=== PATIENT | female | born 1960 | race Caucasian/White ===

== ENCOUNTER 2017-12-29 05:52 | Inpatient (IN) ==
[2017-12-29] MEDS ORDERED: 0.9 % Sodium Chloride 1,000 ML ONE ×3 (06:17→07:07)
[2017-12-29] MEDS ORDERED: Aspirin 81 MG TAB.CHEW PO ONE (06:21)
[2017-12-29 06:26] LABS: Basophils % 0.1 %; Hematocrit 47.7 % (35.3-44.9); Hemoglobin 15.8 g/dL (11.5-15.4); Immature Granulocytes % 0.5 % (0-4); Lymphocytes # 0.8 K/mcL (0.6-4.6); Lymphocytes % 4.6 %; Mean Corpuscular HGB Conc 33.1 g/dL (31.6-35.5); Mean Corpuscular Volume 78.5 fL (83.0-100.0); Mean Platelet Volume 8.7 fL (9.4-12.4); Monocytes # 0.7 K/mcL (0.0-1.3); Neutrophils # 16.7 K/mcL (1.6-8.9); Platelet Count 359 K/mcL (140-400); Red Blood Count 6.08 M/mcL (3.82-4.97); Red Cell Distribution Width 18.5 % (11.5-14.5); Segmented Neutrophils % 90.8 %
[2017-12-29] MEDS ORDERED: Ondansetron 4 MG/2 ML VIAL IVP ONE (06:26)
[2017-12-29] MEDS ORDERED: 0.9 % Sodium Chloride 1,000 ML IVC ONE (06:26)
[2017-12-29 06:28] LABS: Bilirubin,Urine Small (Negative); Blood,Urine Large (Negative); Clarity,Urine Cloudy (Clear); Color,Urine Dark Yellow (Yellow); Glucose,Urine (UA) >=1000 mg/dL (Normal); Ketones,Urine 15 mg/dL (Negative); Leukocyte Esterase,Urine Negative (Negative); Nitrite,Urine Negative (Negative); PH,Urine 5.5 pH Units (5.0-8.0); Protein,Urine >=1000 mg/dL (Neg-Trace); Specific Gravity,Urine > 1.030 (1.010-1.025); Urobilinogen,Urine Normal (Normal)
--- NOTE | 2017-12-29 06:29 | Emergency Department Note ---
Disposition Clinical Impression: ST elevation (STEMI) myocardial infarction Qualifiers: Involved coronary artery: unspecified coronary artery Qualified Code(s): I21.3 - ST elevation (STEMI) myocardial infarction of unspecified site Disposition: Admitted As Inpatient Condition: Serious Time of Disposition: 06:43 Abdominal Pain HPI - General Chief Complaint: ED Abdominal Pain Stated Complaint: vomiting,abdominal pain Time Seen by Provider: 12/29/17 06:06 Source: patient Mode of arrival: ambulatory Limitations: no limitations Nursing Notes Reviewed: Yes Vital Signs Reviewed: Yes - History of Present Illness HPI Narrative: Alert and oriented anxious appearing 57-year-old female presents for evaluation of epigastric pain, nausea, and one episode of vomiting. Epigastric pain began yesterday morning. She had one episode of emesis yesterday upon symptom onset but denies any additional episodes. She does complain of being nauseated at the time of her arrival. She complains of intermittent episodes of diaphoresis as well. She states the pain does radiate diffusely throughout the anterior chest and has recently began to radiate into the left shoulder. She denies any associated fever, chills, diarrhea, constipation, urinary symptoms, hematochezia , melena, or hematemesis. She denies any known aggravating or alleviating factors. She denies any new or worsening cough, sputum, or hemoptysis. Pt Subjective Complaint: abdominal pain Onset (ago): day(s) (Since yesterday) Consistency: intermittent Location: epigastric Pain Severity: moderate Pain Scale: 7 Quality: burning Migration to: other (Anterior chest diffusely) Improves with: nothing Worsens with: nothing Associated symptoms: Reports: nausea, vomiting. Denies: diarrhea, fever, chills , constipation, dysuria, hematemesis, hematochezia, melena, hematuria Treatments prior to arrival: none - Related Data Home Medications Medication Instructions Recorded Confirmed Alprazolam [Xanax] 0.5 mg PO TID 06/26/15 12/29/17 Citalopram [CeleXA] 20 mg PO DAILY 06/26/15 12/29/17 Furosemide [Lasix] 40 mg PO DAILY 06/26/15 12/29/17 Insulin LISPRO [HumaLOG] 5 units SQ TIDWM 06/26/15 12/29/17 Omeprazole [PriLOSEC] 40 mg PO DAILY 06/26/15 12/29/17 Tiotropium [Spiriva] 1 puff IH DAILY 06/26/15 12/29/17 Aspirin 81 mg PO DAILY 02/06/16 12/29/17 Oxycodone HCl/Acetaminophen 1 tab PO Q6H PRN 02/06/16 12/29/17 [Percocet 10-325 mg Tablet] Allergies Allergy/AdvReac Type Severity Reaction Status Date / Time Procaine [From Novocain] Allergy Difficulty Verified 12/29/17 06:06 Breathing, SWELLING All systems ED: reviewed and negative except as stated. Constitutional: Denies: fever, chills, weakness, weight change Eyes: Denies: eye pain, eye discharge, vision change ENT ED: Denies: ear pain, throat pain, dental pain, hearing loss, epistaxis, congestion, dysphagia Cardiovascular: Reports: as per HPI, chest pain. Denies: palpitations, dyspnea on exertion, edema, syncope Respiratory: Denies: cough, dyspnea, wheezes, hemoptysis, stridor Gastrointestinal: Reports: as per HPI, abdominal pain, nausea, vomiting. Denies : diarrhea, constipation, hematemesis, melena, hematochezia Genitourinary: Denies: dysuria, frequency, hematuria, discharge Musculoskeletal: Denies: back pain, neck pain, arthralgia, myalgia Integumentary: Denies: rash, abrasion, lesions Neurological: Denies: headache, weakness, numbness, paresthesias, confusion, abnormal gait, vertigo Psychiatric: Denies: anxiety, depression, suicidal thoughts, homicidal thoughts , auditory hallucinations, visual hallucinations Endocrine: Denies: fatigue Hematological/Lymphatic: Denies: easy bleeding, easy bruising Allergic/Immunologic: Denies: facial swelling, urticaria Abdominal Pain PMH - Past Medical History Medical history: Reports: CHF, COPD, diabetes, TIA Female Surgical History: Reports: other Psychiatric history: Reports: anxiety, depression - Social History Smoking status: Current every day smoker Alcohol use: Reports: none Drug use: Reports: marijuana Physical Exam - General General appearance: alert, in no apparent distress - Head Head exam: atraumatic, normocephalic, normal inspection - Eye Eye exam: Present: normal appearance, PERRL, EOMI. Absent: nystagmus - ENT ENT exam: mucous membranes moist - Neck Neck exam: Present: normal inspection, full ROM, trachea midline - Chest Chest inspection: Present: normal inspection, symmetric chest wall rise - Respiratory Respiratory exam: Present: normal lung sounds bilaterally. Absent: respiratory distress, wheezes, stridor, accessory muscle use, prolonged expiratory phase - Cardiovascular Cardiovascular exam: Present: normal rhythm, tachycardia, normal heart sounds - Abdominal Exam Abdominal exam: Present: soft, tenderness, guarding, normal bowel sounds. Absent: distention, rebound, rigidity Abdominal tenderness: Present: epigastrium, severe - Extremities Exam Extremities exam: Present: normal inspection, full ROM. Absent: tenderness, pedal edema - Neurological Exam Neurological exam: Present: alert, oriented X3 - Psychiatric Psychiatric exam: Present: normal affect, normal mood - Skin Skin exam: Present: warm, dry, intact, normal color Course Course Narrative: 06: EKG reviewed by Dr. Benoit. EKG is concerning for an ST elevation OR. Dr. Benoit has requested that I contact the interventional list national business director, Dr. Alexander. I have notified Dr. Alexander at this time, who is currently reviewing the patient's EKG. 0636: Dr. Alexander returned phone call. Per his suggestions, a STEMI alert has been activated. Dr. Benoit has been notified of this request. The patient will be started on a nitroglycerin drip, she has been given aspirin, a heparin bolus will be administered, as well as brilinta. Vital Signs Temperature 97.4 F L 12/29/17 06:07 Pulse Rate 124 12/29/17 06:07 Respiratory Rate 16 12/29/17 06:07 Blood Pressure 155/93 12/29/17 06:07 O2 Sat by Pulse Oximetry 96 12/29/17 06:07 Temperature 97.4 F L 12/29/17 06:07 Pulse Rate 74 12/29/17 07:09 Respiratory Rate 24 12/29/17 07:09 Blood Pressure 148/93 12/29/17 07:09 O2 Sat by Pulse Oximetry 95 12/29/17 07:09 Oxygen Delivery Oxygen Delivery Nasal Cannula Abdominal Pain - Medical Records Medical records reviewed: Yes I reviewed the patient's medical records. - Lab Data Lab results reviewed: Yes I reviewed the patient's lab results. Lab results narrative: Laboratory Last Values WBC 18.3 K/mcL (4.3-11.1) H 12/29/17 06:16 RBC 6.08 M/mcL (3.82-4.97) H 12/29/17 06:16 Hgb 15.8 g/dL (11.5-15.4) H 12/29/17 06:16 Hct 47.7 % (35.3-44.9) H 12/29/17 06:16 MCV 78.5 fL (83.0-100.0) L 12/29/17 06:16 MCH 26.0 pg (28.0-33.3) L 12/29/17 06:16 MCHC 33.1 g/dL (31.6-35.5) 12/29/17 06:16 RDW 18.5 % (11.5-14.5) H 12/29/17 06:16 Plt Count 359 K/mcL (140-400) 12/29/17 06:16 MPV 8.7 fL (9.4-12.4) L 12/29/17 06:16 Immature Gran % 0.5 % (0-4) 12/29/17 06:16 Seg Neutrophils % 90.8 % 12/29/17 06:16 Lymphocytes % 4.6 % 12/29/17 06:16 Monocytes % 4.0 % 12/29/17 06:16 Eosinophils % 0.0 % 12/29/17 06:16 Basophils % 0.1 % 12/29/17 06:16 Neutrophils # 16.7 K/mcL (1.6-8.9) H 12/29/17 06:16 Lymphocytes # 0.8 K/mcL (0.6-4.6) 12/29/17 06:16 Monocytes # 0.7 K/mcL (0.0-1.3) 12/29/17 06:16 Eosinophils # 0.0 K/mcL (0.0-0.6) 12/29/17 06:16 Basophils # 0.0 K/mcL (0.0-0.2) 12/29/17 06:16 PT 11.6 Seconds (9.4-12.1) 12/29/17 06:16 INR 1.1 12/29/17 06:16 APTT 30.6 Seconds (26.0-36.0) 12/29/17 06:16 Sodium 130 mEq/L (136-145) L 12/29/17 06:16 Potassium 4.8 mEq/L (3.5-5.1) 12/29/17 06:16 Chloride 97 mEq/L (98-107) L 12/29/17 06:16 Carbon Dioxide 19 mEq/L (23-29) L 12/29/17 06:16 BUN 34 mg/dL (6-20) H 12/29/17 06:16 Creatinine 1.06 mg/dL (0.60-1.20) 12/29/17 06:16 Est GFR ( Amer) > 60 (> 60) 12/29/17 06:16 Est GFR (Non-Af Amer) 54 (> 60) L 12/29/17 06:16 BUN/Creatinine Ratio 32 (6-26) H 12/29/17 06:16 Glucose 452 mg/dL (70-105) H 12/29/17 06:16 Calculated Osmolality 297 (280-300) 12/29/17 06:16 Lactic Acid 5.3 mmol/L (0.5-2.2) H* 12/29/17 06:16 Calcium 9.4 mg/dL (8.6-10.3) 12/29/17 06:16 Total Bilirubin 0.9 mg/dL (0.3-1.0) 12/29/17 06:16 Direct Bilirubin 0.2 mg/dL (0.0-0.2) 12/29/17 06:16 Indirect Bilirubin 0.7 mg/dL (0.0-1.2) 12/29/17 06:16 AST 30 Units/L (13-39) 12/29/17 06:16 ALT 12 Units/L (7-52) 12/29/17 06:16 Alkaline Phosphatase 87 Units/L (34-104) 12/29/17 06:16 Troponin I 4.47 ng/mL (< 0.04) H* 12/29/17 06:16 Serum Total Protein 7.5 g/dL (6.4-8.9) 12/29/17 06:16 Albumin 4.0 g/dL (3.5-5.7) 12/29/17 06:16 Globulin 3.5 g/dL (2.4-3.5) 12/29/17 06:16 Albumin/Globulin Ratio 1.1 (1.1-2.2) 12/29/17 06:16 Amylase 20 Units/L (29-103) L 12/29/17 06:16 Lipase 5 Units/L (11-82) L 12/29/17 06:16 Urine Color Dark Yellow (Yellow) 12/29/17 06:08 Urine Clarity Cloudy (Clear) A 12/29/17 06:08 Urine pH 5.5 pH Units (5.0-8.0) 12/29/17 06:08 Ur Specific [place] > 1.030 (1.010-1.025) H 12/29/17 06:08 Urine Protein >=1000 mg/dL (Neg-Trace) H 12/29/17 06:08 Urine Glucose (UA) >=1000 mg/dL (Normal) H 12/29/17 06:08 Urine Ketones 15 mg/dL (Negative) H 12/29/17 06:08 Urine Blood Large (Negative) H 12/29/17 06:08 Urine Nitrite Negative (Negative) 12/29/17 06:08 Urine Bilirubin Small (Negative) H 12/29/17 06:08 Urine Urobilinogen Normal mg/dL (Normal) 12/29/17 06:08 Ur Leukocyte Esterase Negative (Negative) 12/29/17 06:08 Urine Microscopic RBC 5-15 per hpf (0-3) H 12/29/17 06:08 Urine Microscopic WBC 3-5 per hpf (0-3) H 12/29/17 06:08 Ur Squamous Epith Cells Many per lpf (None-Few) H 12/29/17 06:08 Amorphous Sediment Moderate (Few) H 12/29/17 06:08 Urine Bacteria Few per hpf (None-Few) 12/29/17 06:08 Hyaline Casts Moderate per lpf (None-Few) H 12/29/17 06:08 Ur Culture Indicated? NO (NO) 12/29/17 06:08 Result diagrams: 12/29/17 06:16 12/29/17 06:16 Lab Results 12/29/17 12/29/17 12/29/17 Range/Units 06:08 06:16 06:16 WBC 18.3 H (4.3-11.1) K/mcL RBC 6.08 H (3.82-4.97) M/mcL Hgb 15.8 H (11.5-15.4) g/dL Hct 47.7 H (35.3-44.9) % MCV 78.5 L (83.0-100.0) fL MCH 26.0 L (28.0-33.3) pg MCHC 33.1 (31.6-35.5) g/dL RDW 18.5 H (11.5-14.5) % Plt Count 359 (140-400) K/mcL MPV 8.7 L (9.4-12.4) fL Immature Gran % 0.5 (0-4) % Seg Neutrophils % 90.8 % Lymphocytes % 4.6 % Monocytes % 4.0 % Eosinophils % 0.0 % Basophils % 0.1 % Neutrophils # 16.7 H (1.6-8.9) K/mcL Lymphocytes # 0.8 (0.6-4.6) K/mcL Monocytes # 0.7 (0.0-1.3) K/mcL Eosinophils # 0.0 (0.0-0.6) K/mcL Basophils # 0.0 (0.0-0.2) K/mcL PT 11.6 (9.4-12.1) Seconds INR 1.1 APTT 30.6 (26.0-36.0) Seconds Sodium (136-145) mEq/L Potassium (3.5-5.1) mEq/L Chloride (98-107) mEq/L Carbon Dioxide (23-29) mEq/L BUN (6-20) mg/dL Creatinine (0.60-1.20) mg/dL Est GFR ( Amer) (> 60) Est GFR (Non-Af Amer) (> 60) BUN/Creatinine Ratio (6-26) Glucose (70-105) mg/dL Calculated Osmolality (280-300) Lactic Acid (0.5-2.2) mmol/L Calcium (8.6-10.3) mg/dL Total Bilirubin (0.3-1.0) mg/dL Direct Bilirubin (0.0-0.2) mg/dL Indirect Bilirubin (0.0-1.2) mg/dL AST (13-39) Units/L ALT (7-52) Units/L Alkaline Phosphatase (34-104) Units/L Troponin I (< 0.04) ng/mL Serum Total Protein (6.4-8.9) g/dL Albumin (3.5-5.7) g/dL Globulin (2.4-3.5) g/dL Albumin/Globulin Ratio (1.1-2.2) Amylase (29-103) Units/L Lipase (11-82) Units/L Urine Color Dark Yellow (Yellow) Urine Clarity Cloudy A (Clear) Urine pH 5.5 (5.0-8.0) pH Units Ur Specific [place] > 1.030 H (1.010-1.025) Urine Protein >=1000 H (Neg-Trace) mg/dL Urine Glucose (UA) >=1000 H (Normal) mg/dL Urine Ketones 15 H (Negative) mg/dL Urine Blood Large H (Negative) Urine Nitrite Negative (Negative) Urine Bilirubin Small H (Negative) Urine Urobilinogen Normal (Normal) mg/dL Ur Leukocyte Esterase Negative (Negative) Urine Microscopic RBC 5-15 H (0-3) per hpf Urine Microscopic WBC 3-5 H (0-3) per hpf Ur Squamous Epith Cells Many H (None-Few) per lpf Amorphous Sediment Moderate H (Few) Urine Bacteria Few (None-Few) per hpf Hyaline Casts Moderate H (None-Few) per lpf Ur Culture Indicated? NO (NO) 12/29/17 12/29/17 Range/Units 06:16 06:16 WBC (4.3-11.1) K/mcL RBC (3.82-4.97) M/mcL Hgb (11.5-15.4) g/dL Hct (35.3-44.9) % MCV (83.0-100.0) fL MCH (28.0-33.3) pg MCHC (31.6-35.5) g/dL RDW (11.5-14.5) % Plt Count (140-400) K/mcL MPV (9.4-12.4) fL Immature Gran % (0-4) % Seg Neutrophils % % Lymphocytes % % Monocytes % % Eosinophils % % Basophils % % Neutrophils # (1.6-8.9) K/mcL Lymphocytes # (0.6-4.6) K/mcL Monocytes # (0.0-1.3) K/mcL Eosinophils # (0.0-0.6) K/mcL Basophils # (0.0-0.2) K/mcL PT (9.4-12.1) Seconds INR APTT (26.0-36.0) Seconds Sodium 130 L (136-145) mEq/L Potassium 4.8 (3.5-5.1) mEq/L Chloride 97 L (98-107) mEq/L Carbon Dioxide 19 L (23-29) mEq/L BUN 34 H (6-20) mg/dL Creatinine 1.06 (0.60-1.20) mg/dL Est GFR ( Amer) > 60 (> 60) Est GFR (Non-Af Amer) 54 L (> 60) BUN/Creatinine Ratio 32 H (6-26) Glucose 452 H (70-105) mg/dL Calculated Osmolality 297 (280-300) Lactic Acid 5.3 H* (0.5-2.2) mmol/L Calcium 9.4 (8.6-10.3) mg/dL Total Bilirubin 0.9 (0.3-1.0) mg/dL Direct Bilirubin 0.2 (0.0-0.2) mg/dL Indirect Bilirubin 0.7 (0.0-1.2) mg/dL AST 30 (13-39) Units/L ALT 12 (7-52) Units/L Alkaline Phosphatase 87 (34-104) Units/L Troponin I 4.47 H* (< 0.04) ng/mL Serum Total Protein 7.5 (6.4-8.9) g/dL Albumin 4.0 (3.5-5.7) g/dL Globulin 3.5 (2.4-3.5) g/dL Albumin/Globulin Ratio 1.1 (1.1-2.2) Amylase 20 L (29-103) Units/L Lipase 5 L (11-82) Units/L Urine Color (Yellow) Urine Clarity (Clear) Urine pH (5.0-8.0) pH Units Ur Specific [place] (1.010-1.025) Urine Protein (Neg-Trace) mg/dL Urine Glucose (UA) (Normal) mg/dL Urine Ketones (Negative) mg/dL Urine Blood (Negative) Urine Nitrite (Negative) Urine Bilirubin (Negative) Urine Urobilinogen (Normal) mg/dL Ur Leukocyte Esterase (Negative) Urine Microscopic RBC (0-3) per hpf Urine Microscopic WBC (0-3) per hpf Ur Squamous Epith Cells (None-Few) per lpf Amorphous Sediment (Few) Urine Bacteria (None-Few) per hpf Hyaline Casts (None-Few) per lpf Ur Culture Indicated? (NO) - Radiology Data Radiology results reviewed: Yes I reviewed the patient's radiology results. Chest X-Ray 12/29/17 06:21 IMPRESSION: No acute findings. D/ / Anish Munoz / Anish Munoz Interpreting Provider: Anish Munoz - EKG Data EKG attestation: Yes I reviewed and interpreted this EKG. EKG results narrative: EKG reviewed by Dr. Benoit as well. EKG shows a sinus tachycardia at a rate of 116 bpm. TN interval 147, QRS duration 110, QT/QTc interval 346/415. No ectopy noted. Slight ST elevation noted in leads V1 and V2. T wave inversions noted in the lateral leads.
[2017-12-29 06:33] LABS: INR 1.1; Prothrombin Time 11.6 Seconds (9.4-12.1)
[2017-12-29] MEDS ORDERED: Nitroglycerin 0.4 MG TAB.SUBL SL PRN (06:35)
[2017-12-29] MEDS ORDERED: *HR* LORazepam 2 MG/ML VIAL IVP ONE (06:35)
[2017-12-29 06:36] LABS: Activated Partial Thrombo Time 30.6 Seconds (26.0-36.0)
[2017-12-29] MEDS ORDERED: *HR* Heparin 5,000 UNIT/ML VIAL IVP PRN ×2 (06:39)
[2017-12-29] MEDS ORDERED: *HR* Heparin 5,000 UNIT/ML VIAL IVP ONE (06:39)
[2017-12-29] MEDS ORDERED: *HR* Ticagrelor 90 MG TABLET PO ONE (06:39)
[2017-12-29] MEDS ORDERED: *HR* Heparin 5,000 UNIT/ML VIAL ONE (06:43)
[2017-12-29] MEDS ORDERED: *HR* Ticagrelor 90 MG TABLET ONE (06:43)
[2017-12-29] MEDS ORDERED: Nitroglycerin 25 MG/250 ML INFUS..BTL IVC SCH (06:45)
[2017-12-29 06:46] LABS: Alanine Aminotransferase 12 Units/L (7-52); Albumin/Globulin Ratio 1.1 (1.1-2.2); Alkaline Phosphatase 87 Units/L (34-104); Amylase 20 Units/L (29-103); Aspartate Amino Transferase 30 Units/L (13-39); BUN/Creatinine Ratio 32 (6-26); Bilirubin,Direct 0.2 mg/dL (0.0-0.2); Bilirubin,Indirect 0.7 mg/dL (0.0-1.2); Bilirubin,Total 0.9 mg/dL (0.3-1.0); Blood Urea Nitrogen 34 mg/dL (6-20); Calcium 9.4 mg/dL (8.6-10.3); Carbon Dioxide 19 mEq/L (23-29); Chloride 97 mEq/L (98-107); Globulin 3.5 g/dL (2.4-3.5); Glucose 452 mg/dL (70-105); Lipase 5 Units/L (11-82); Osmolality,Calculated 297 (280-300); Potassium 4.8 mEq/L (3.5-5.1); Sodium 130 mEq/L (136-145); Total Protein 7.5 g/dL (6.4-8.9); eGFR For African Americans > 60 (> 60); eGFR For Non-African Americans 54 (> 60)
[2017-12-29 06:51] LABS: Amorphous Sediment,Urine Moderate (Few); Hyaline Casts,Urine Moderate per lpf (None-Few); Squamous Epithelial Cell,Urine Many per lpf (None-Few)
[2017-12-29 06:54] LABS: Bacteria,Urine Few per hpf (None-Few)
[2017-12-29 06:54] LABS: Troponin I 4.47 ng/mL (< 0.04)
--- NOTE | 2017-12-29 06:54 | Emergency Department Note ---
Disposition Clinical Impression: ST elevation (STEMI) myocardial infarction Qualifiers: Involved coronary artery: unspecified coronary artery Qualified Code(s): I21.3 - ST elevation (STEMI) myocardial infarction of unspecified site Disposition: Admitted As Inpatient Condition: Serious Referrals: Alex Tapia Jr, MD [Primary Care Provider] - Forms: ED Satisfaction Letter, Work/School Release General Adult HPI - General Chief complaint: ED Abdominal Pain Stated complaint: vomiting,abdominal pain Time Seen by Provider: 12/29/17 06:06 Source: patient Mode of arrival: ambulatory Limitations: no limitations Nursing Notes Reviewed: Yes Vital Signs Reviewed: Yes - History of Present Illness Pain Scale: 7 - Related Data Home Medications Medication Instructions Recorded Confirmed Alprazolam [Xanax] 0.5 mg PO TID 06/26/15 02/06/16 Citalopram [CeleXA] 20 mg PO DAILY 06/26/15 02/06/16 Furosemide [Lasix] 40 mg PO DAILY 06/26/15 02/06/16 Insulin LISPRO [HumaLOG] 5 units SQ TIDWM 06/26/15 02/06/16 Omeprazole [PriLOSEC] 40 mg PO DAILY 06/26/15 02/06/16 Tiotropium [Spiriva] 1 puff IH DAILY 06/26/15 02/06/16 Aspirin 81 mg PO DAILY 02/06/16 02/06/16 Oxycodone HCl/Acetaminophen 1 tab PO Q6H PRN 02/06/16 02/06/16 [Percocet 10-325 mg Tablet] Previous Rx's Medication Instructions Recorded Clopidogrel Bisulfate [Plavix] 75 mg PO DAILY #30 tablet 02/06/16 predniSONE [Prednisone] 40 mg PO DAILY #10 tablet 08/16/16 Allergies Allergy/AdvReac Type Severity Reaction Status Date / Time Procaine [From Novocain] Allergy Difficulty Verified 12/29/17 06:06 Breathing, SWELLING Constitutional: Denies: fever, chills, weakness, weight change Eyes: Denies: eye pain, eye discharge, vision change ENT ED: Denies: ear pain, throat pain, dental pain, hearing loss, epistaxis, congestion, dysphagia Cardiovascular: Reports: as per HPI, chest pain. Denies: palpitations, dyspnea on exertion, edema, syncope Respiratory: Denies: cough, dyspnea, wheezes, hemoptysis, stridor Gastrointestinal: Reports: as per HPI, abdominal pain, nausea, vomiting. Denies : diarrhea, constipation, hematemesis, melena, hematochezia Genitourinary: Denies: dysuria, frequency, hematuria, discharge Musculoskeletal: Denies: back pain, neck pain, arthralgia, myalgia Integumentary: Denies: rash, abrasion, lesions Neurological: Denies: headache, weakness, numbness, paresthesias, confusion, abnormal gait, vertigo Psychiatric: Denies: anxiety, depression, suicidal thoughts, homicidal thoughts , auditory hallucinations, visual hallucinations Endocrine: Denies: fatigue Hematological/Lymphatic: Denies: easy bleeding, easy bruising Allergic/Immunologic: Denies: facial swelling, urticaria Past Medical History - Past Medical History Medical history: Reports: CHF, COPD, diabetes, TIA Surgical history: Reports: other Psychiatric history: Reports: anxiety, depression - Social History Smoking Status: Current every day smoker Smokeless Tobacco Status: No Alcohol use: Reports: none Drug use: Reports: marijuana Physical Exam - General Limitations: no limitations General appearance: alert, in no apparent distress Course Vital Signs Temperature 97.4 F L 12/29/17 06:07 Pulse Rate 124 12/29/17 06:07 Respiratory Rate 16 12/29/17 06:07 Blood Pressure 155/93 12/29/17 06:07 O2 Sat by Pulse Oximetry 96 12/29/17 06:07 Temperature 97.4 F L 12/29/17 06:07 Pulse Rate 115 12/29/17 06:47 Respiratory Rate 26 12/29/17 06:47 Blood Pressure 129/75 12/29/17 06:47 O2 Sat by Pulse Oximetry 95 12/29/17 06:47 Oxygen Delivery Oxygen Delivery Nasal Cannula Medical Decision Making - Lab Data Result diagrams: 12/29/17 06:16 12/29/17 06:16 Lab Results 12/29/17 12/29/17 12/29/17 Range/Units 06:08 06:16 06:16 WBC 18.3 H (4.3-11.1) K/mcL RBC 6.08 H (3.82-4.97) M/mcL Hgb 15.8 H (11.5-15.4) g/dL Hct 47.7 H (35.3-44.9) % MCV 78.5 L (83.0-100.0) fL MCH 26.0 L (28.0-33.3) pg MCHC 33.1 (31.6-35.5) g/dL RDW 18.5 H (11.5-14.5) % Plt Count 359 (140-400) K/mcL MPV 8.7 L (9.4-12.4) fL Immature Gran % 0.5 (0-4) % Seg Neutrophils % 90.8 % Lymphocytes % 4.6 % Monocytes % 4.0 % Eosinophils % 0.0 % Basophils % 0.1 % Neutrophils # 16.7 H (1.6-8.9) K/mcL Lymphocytes # 0.8 (0.6-4.6) K/mcL Monocytes # 0.7 (0.0-1.3) K/mcL Eosinophils # 0.0 (0.0-0.6) K/mcL Basophils # 0.0 (0.0-0.2) K/mcL PT 11.6 (9.4-12.1) Seconds INR 1.1 APTT 30.6 (26.0-36.0) Seconds Sodium (136-145) mEq/L Potassium (3.5-5.1) mEq/L Chloride (98-107) mEq/L Carbon Dioxide (23-29) mEq/L BUN (6-20) mg/dL Creatinine (0.60-1.20) mg/dL Est GFR ( Amer) (> 60) Est GFR (Non-Af Amer) (> 60) BUN/Creatinine Ratio (6-26) Glucose (70-105) mg/dL Calculated Osmolality (280-300) Lactic Acid (0.5-2.2) mmol/L Calcium (8.6-10.3) mg/dL Total Bilirubin (0.3-1.0) mg/dL Direct Bilirubin (0.0-0.2) mg/dL Indirect Bilirubin (0.0-1.2) mg/dL AST (13-39) Units/L ALT (7-52) Units/L Alkaline Phosphatase (34-104) Units/L Serum Total Protein (6.4-8.9) g/dL Albumin (3.5-5.7) g/dL Globulin (2.4-3.5) g/dL Albumin/Globulin Ratio (1.1-2.2) Amylase (29-103) Units/L Lipase (11-82) Units/L Urine Color Dark Yellow (Yellow) Urine Clarity Cloudy A (Clear) Urine pH 5.5 (5.0-8.0) pH Units Ur Specific [place] > 1.030 H (1.010-1.025) Urine Protein >=1000 H (Neg-Trace) mg/dL Urine Glucose (UA) >=1000 H (Normal) mg/dL Urine Ketones 15 H (Negative) mg/dL Urine Blood Large H (Negative) Urine Nitrite Negative (Negative) Urine Bilirubin Small H (Negative) Urine Urobilinogen Normal (Normal) mg/dL Ur Leukocyte Esterase Negative (Negative) 12/29/17 12/29/17 Range/Units 06:16 06:16 WBC (4.3-11.1) K/mcL RBC (3.82-4.97) M/mcL Hgb (11.5-15.4) g/dL Hct (35.3-44.9) % MCV (83.0-100.0) fL MCH (28.0-33.3) pg MCHC (31.6-35.5) g/dL RDW (11.5-14.5) % Plt Count (140-400) K/mcL MPV (9.4-12.4) fL Immature Gran % (0-4) % Seg Neutrophils % % Lymphocytes % % Monocytes % % Eosinophils % % Basophils % % Neutrophils # (1.6-8.9) K/mcL Lymphocytes # (0.6-4.6) K/mcL Monocytes # (0.0-1.3) K/mcL Eosinophils # (0.0-0.6) K/mcL Basophils # (0.0-0.2) K/mcL PT (9.4-12.1) Seconds INR APTT (26.0-36.0) Seconds Sodium 130 L (136-145) mEq/L Potassium 4.8 (3.5-5.1) mEq/L Chloride 97 L (98-107) mEq/L Carbon Dioxide 19 L (23-29) mEq/L BUN 34 H (6-20) mg/dL Creatinine 1.06 (0.60-1.20) mg/dL Est GFR ( Amer) > 60 (> 60) Est GFR (Non-Af Amer) 54 L (> 60) BUN/Creatinine Ratio 32 H (6-26) Glucose 452 H (70-105) mg/dL Calculated Osmolality 297 (280-300) Lactic Acid 5.3 H* (0.5-2.2) mmol/L Calcium 9.4 (8.6-10.3) mg/dL Total Bilirubin 0.9 (0.3-1.0) mg/dL Direct Bilirubin 0.2 (0.0-0.2) mg/dL Indirect Bilirubin 0.7 (0.0-1.2) mg/dL AST 30 (13-39) Units/L ALT 12 (7-52) Units/L Alkaline Phosphatase 87 (34-104) Units/L Serum Total Protein 7.5 (6.4-8.9) g/dL Albumin 4.0 (3.5-5.7) g/dL Globulin 3.5 (2.4-3.5) g/dL Albumin/Globulin Ratio 1.1 (1.1-2.2) Amylase 20 L (29-103) Units/L Lipase 5 L (11-82) Units/L Urine Color (Yellow) Urine Clarity (Clear) Urine pH (5.0-8.0) pH Units Ur Specific [place] (1.010-1.025) Urine Protein (Neg-Trace) mg/dL Urine Glucose (UA) (Normal) mg/dL Urine Ketones (Negative) mg/dL Urine Blood (Negative) Urine Nitrite (Negative) Urine Bilirubin (Negative) Urine Urobilinogen (Normal) mg/dL Ur Leukocyte Esterase (Negative) Critical Care Time Critical Care Time: Yes Total Critical Care Time: 35 Attestation: Critical care performed: Time is exclusive of separately billable procedures. Time includes: direct patient care, patient reassessment, coordination of patient care, interpretation of data (laboratory data, radiology data, and respiratory data), review of patient's medical records, medical consultation and documentation of patient care. Procedures included in critical care time: Procedures excluded from critical care time: Attestation Statement - Attestation Attestation: I, Adria Benoit MD, personally evaluated this patient and discussed their management with the midlevel provicer, PAC/HOT BLASTER. I reviewed the midlevel provider 's note and agree with the documented findings, medical decision making, and plan of care. 57-year-old female presents to the emergency department complaining of epigastric abdominal pain for 24 hours prior to arrival. She states the pain started yesterday morning just after she woke up. Pain radiates up into the chest and is associated with nausea. She had some vomiting initially but none since. She also complains of diaphoresis. Some mild shortness of breath. The pain has been constant for the past 24 hours and seems to be just getting progressively worse. No fever. No melena, hematemesis, or hematochezia. Patient denies any prior cardiac history. The pain does seem to radiate into her shoulders, left greater than right. On examination patient is a well-developed well-nourished female in mild distress. She is very anxious. There is no cyanosis or diaphoresis. She is alert and oriented 3. Chest is nontender to palpation. Breath sounds are clear and equal bilaterally. Heart regular with a mild tachycardia. Abdomen is soft with moderate epigastric tenderness. Bowel sounds normal. EKG shows ST elevations in V1 and V2 consistent with STEMI criteria. She also has new lateral T-wave inversions. EKG was sent to the interventionalist, Dr. Alexander, and he agrees findings are consistent with STEMI and a STEMI alert was called. Labs reviewed. Lactic acid elevated at 5.3. Troponin 4.47. Patient received aspirin, nitroglycerin, Brilinta, and heparin bolus.
[2017-12-29] MEDS ORDERED: Heparin 1,000 UNITS/500 mL 500 ML ONE (07:08)
[2017-12-29] MEDS ORDERED: Nitroglycerin 1,000 MCG/10 ML VIAL IV ONE (07:08)
[2017-12-29] MEDS ORDERED: ISOVUE-370 200 ML INFUS..BTL IV ONE (07:08)
[2017-12-29] MEDS ORDERED: *HR* Heparin 10,000 UNIT/10 ML VIAL ONE (07:08)
[2017-12-29] MEDS ORDERED: *HR* Midazolam HCl 5 MG/5 ML VIAL IVP ONE (07:25)
[2017-12-29] MEDS ORDERED: *HR* FentaNYL (PF) 100 MCG/2 ML VIAL ONE ×2 (07:25→08:34)
--- NOTE | 2017-12-29 08:03 | Procedure Note ---
Date of procedure: 12/29/17 Pre-op diagnosis: STEMI Post-op diagnosis: other Procedure: Left cath From the left groin. Minor plaque and there is dilated LV with EF 20- 25%. Anesthesia: local Surgeon: Marcus Alexander Was there an media center assistant present: No Estimated blood loss (cc): 10 Specimen: none Pathology: none sent Condition: stable Disposition: floor
--- NOTE | 2017-12-29 08:06 | Pre-Sedation Evaluation ---
Pre-sedation evaluation - Pre-sedation checklist Date of procedure: 12/29/17 Procedure: heart cath Recent Vitals: Last Vital Signs Temp 97.4 F L 12/29/17 06:07 Pulse 74 12/29/17 07:09 Resp 24 12/29/17 07:09 BP 148/93 12/29/17 07:09 Pulse Ox 95 12/29/17 07:09 H&P (including ROS) documented in medical record: Yes Previous reaction to sedatives/anesthetics: No Dietary Status: NPO after Midnight Dentition: No loose teeth or bridges, full dentition ASA Classification *see protocol: CLASS III-Severe systemic disease Plan of Care: Pt appropriate candidate for procedure/moderate/conscious sedation , Risks/benefits of procedure/sedation discussed w/ patient/family
[2017-12-29] MEDS ORDERED: *HR* FentaNYL (PF) 100 MCG/2 ML VIAL IVP ONE (08:56)
--- NOTE | 2017-12-29 10:06 | Invasive Diagnostic Lab Proc ---
Name: Shantal Gomez Date of Study: 12/29/2017 Date: 1960 Ht: 59.1in Medical Record#: [id number] Age: 57 Wt: 160.94lb Gender: Female BSA: 1.68 Order #: [id number] BMI: 32.44 Physicians Procedure Physician: Marcus Alexander MD Referring MD: Referring MD: Staff Name Position Time In AviTrae RT (R) Scrub 07:24 AM Jody Mace RN Doctor Of Osteopathy 07:25 AM Daphney Wu RT (R) Monitor 07:25 AM Indications Indication STEMI Procedures Performed Procedure L HRT ARTERY/VENTRICLE ANGIO Pre-Procedure Checklist Informed consent is complete signed and on chart. H&P is on chart. ID band is on and ID verified with patient. Patient NPO for procedure The procedure was described for the patient and questions were answered. ECG is on chart. Plan of Care Patient will tolerate the procedure without complications. Adequate level of comfort will be maintained. Hemodynamics will remain stable Patient will recover from procedure without complications. Respiratory function will be maintained. Cardiac rhythm will remain stable. Patient temperature will be maintained. Patient and/or family have verbalized understanding of the procedure. Patient Education Chief Complaint/Reason for Test: Cardiac Cath Developmental Category: Adult (18-64 years) Developmentally Appropriate for Age: Yes Learning Barriers: None Education Needs: Procedure Education Method: Verbal Information Taught: Cardiac Cath Educational Evaluation: Able to repeat information Intravenous Access Time IV Size Location DC'd Fluid/Drip Rate Units RN 18g 1 09/08" Patent On Arrival 0.9NaCl ml/hr Allergies Procaine Vital Signs Time BP (mmHg) HR (bpm) O2 Sat. RR (bpm) LOC 07:26 AM / % 5 = Fully awake and oriented or at pre-proc level 07:26 AM / % 5 = Fully awake and oriented or at pre-proc level 07:25 AM 128 / 74 115 96 % 07:30 AM 138 / 76 114 97 % 07:35 AM 129 / 59 108 95 % 07:40 AM 117 / 65 105 95 % 07:45 AM 100 / 75 104 93 % 07:50 AM 117 / 95 105 91 % 08:00 AM 112 / 77 105 91 % 20 5 = Fully awake and oriented or at pre-proc level 08:15 AM 118 / 64 106 89 % 20 5 = Fully awake and oriented or at pre-proc level 08:30 AM 124 / 71 107 89 % 20 5 = Fully awake and oriented or at pre-proc level 08:45 AM 134 / 75 112 91 % 20 5 = Fully awake and oriented or at pre-proc level 09:00 AM 141 / 88 114 96 % 22 5 = Fully awake and oriented or at pre-proc level 09:15 AM 152 / 76 114 96 % 20 5 = Fully awake and oriented or at pre-proc level 09:30 AM 141 / 102 115 96 % 20 5 = Fully awake and oriented or at pre-proc level 09:45 AM 141 / 81 112 96 % 20 5 = Fully awake and oriented or at pre-proc level 10:00 AM 144 / 80 111 96 % 20 5 = Fully awake and oriented or at pre-proc level Procedural Medications Time Medication Dose Units Method Given By 07:26 AM Versed 1 mg Intravenous Jody Mace RN 07:26 AM Fentanyl 50 mcg Intravenous Jody Mace RN 07:29 AM Lidocaine 2% 16 ml Subcutaneous Marcus Alexander MD 07:31 AM Versed 1 mg Intravenous Jody Mace RN 07:31 AM Fentanyl 50 mcg Intravenous Jody Mace RN 07:33 AM Lidocaine 2% 10 ml Subcutaneous Marcus Alexander MD 08:49 AM Fentanyl 50 mcg Intravenous Jason Granado RN Kirsten Score Preprocedure Postprocedure Activity 2- Moves 4 extremities sustained head lift Activity 2- Moves 4 extremities sustained head lift Circulation 2- SBP +/= 20 points of pre-anesthetic level Circulation 2- SBP +/= 20 points of pre-anesthetic level Consciousness 2- Awake and alert oriented x 3 Consciousness 2- Awake and alert oriented x 3 O2 Saturation 2- Able to maintain O2 satruation of 92% on room air O2 Saturation 1- Needs O2 inhalation to maintain O2 saturation of 90% Respiratory 2- Able to deep breathe and cough well Respiratory 2- Able to deep breathe and cough well Total Score 10 Total Score 9 Contrast Agent: Isovue Diagnostic Contrast: 125 ml Total Contrast: 125 ml Fluoro Dose: 292 mGy Activated Clotting Time Time Seconds to Clot 07:51 AM 200 09:15 AM 149 Procedure Log Time Note Enter By 07:19 AM Pt arrived to laboratory coordinator 2 at 07:19 [email or web address] 07:24 AM Vitals capture started with the following parameters, Patient=Adult, Interval=5 min, Initial Ygnfsrsv=642 mmHg, Deflation Rate=5 mmHg, Cuff placed on Right Arm 07:24 AM CathStat 07:24 AM Case Start 07:25 AM Trae Cárdenas RT (R) Position: Scrub Time in: 07:24 [email or web address] 07:25 AM Jody Mace RN Position: Doctor Of Osteopathy Time in: 07: [email or web address] 07:25 AM Daphney Wu RT (R) Position: Monitor Time in: 07: [email or web address] 07:25 AM Physician arrived 07:25 [email or web address] 07:25 AM Hair removed from procedure site in holding area using clippers. Bilateral groin prepped with Chloraprep by Trae Cárdenas RT (R), then patient was draped. Skin intact. [email or web address] 07:25 AM Meet and greet completed [email or web address] 07:25 AM Sign in performed according to hospital policy. [email or web address] 07:25 AM Procedure start 07: [email or web address] 07: AM SR=181 bpm, OCJI=222/74 mmhg, SpO2=96.0 % 07: AM Time: 07:26 Patient comfortable and pain free: No [email or web address] 07: AM Time: :LOC: 5 = Fully awake and oriented or at pre-proc level [email or web address] : AM Time: : Versed 1 mg Intravenous Given by Jody Mace RN [email or web address] 07: AM Time: 07: Fentanyl 50 mcg Intravenous Given by Jody Mace RN [email or web address] 07:27 AM Pressure channel 1 zero failed. 07:27 AM Pressure channel 1 zero failed. 07:27 AM Pressure channel 1 zero failed. 07:27 AM Pressure channel 1 zeroed. 07:28 AM Time out performed according to hospital policy [email or web address] 07:28 AM Clinical Presentation: STEMI or equivalent [email or web address] 07:29 AM Time: : 16 ml Lidocaine 2% to right groin Subcutaneous Given by Marcus Alexander MD [email or web address] 07:30 AM MM=731 bpm, CZWW=615/76 mmhg, SpO2=97.0 %, Comment=Sinus Tach 07:30 AM Recorded ECG: VJ=576 Condition=Condition 1 07:31 AM Time: 07: Versed 1 mg Intravenous Given by Jody Mace RN 07:31 AM Time: 07:31 Fentanyl 50 mcg Intravenous Given by Jody Mace RN 07:33 AM Venous access obtained, wire inserted dsp 07:33 AM Time: 07:33 10 ml Lidocaine 2% to left groin Subcutaneous Given by Marcus Alexander MD [email or web address] 07:34 AM Access obtained by percutaneous puncture. 6Fr 10cm Terumo [place] sheath placed in left Femoral artery. [id number] dspell 07:35 AM FR=468 bpm, LOZL=421/59 mmhg, SpO2=95.0 %, Comment=Sinus Tach 07:35 AM 0.035 150cm VSI [place]-Torque wire [id number] dspell 07:35 AM 0.035 145cm [place] 3mmJ wire [id number] dspell 07:36 AM 5Fr FR 4 catheter inserted over the wire DN ell 07:37 AM RCA angiography performed in multiple views. ell 07:37 AM Recorded Pressure: Ao, TZ=793, Condition=Condition 1 (Aorta) Ao 95/72/84 07:37 AM Catheter removed dspell 07:38 AM 6Fr XB3.5 Cordis guide catheter was used to cannulate the PCI vessel successfully. reused? No 07:39 AM LCA angiography performed in multiple views. 07:40 AM NN=875 bpm, WLPV=157/65 mmhg, SpO2=95.0 %, Comment=Sinus Tach 07:40 AM Catheter removed dspell 07:40 AM 5Fr Pigtail catheter inserted over the wire [facility] dspell 07:41 AM Catheter selectively placed in left ventricle dspell 07:41 AM Bolus angiogram of left Ventricle complete: 8 ml/sec for a total of 24 mls dspell 07:41 AM Recorded Pressure: LV, KF=514, Condition=Condition 1 (Left Ventricle) LV 136/11/35 07:41 AM Time: 07:26LOC: 5 = Fully awake and oriented or at pre-proc level dspell 07:41 AM Time: 07:26 Patient comfortable and pain free: Yes dspell 07:42 AM Recorded Pressure: LV, Ao, EG=906, Condition=Condition 1 (Left Ventricle) LV 137/21/41, (Aorta) Ao 143/89/111 07:43 AM Bolus angiogram of Abdominal aorta complete: 20 ml/sec for a total of 40 mls dspell 07:44 AM Catheter removed dspell 07:45 AM wire pulled from venous access [email or web address] 07:45 AM BV=951 bpm, UZZH=085/75 mmhg, SpO2=93.0 %, Comment=Sinus Tach 07:45 AM Bolus angiogram of left Femoral complete: 4 ml/sec for a total of 7 mls dspellman 07:45 AM Recorded Pressure: Ao, PG=353, Condition=Condition 1 (Aorta) Ao 14/-27/-11 07:45 AM Recorded Pressure: Ao, ZD=946, Condition=Condition 1 (Aorta) Ao 133/77/97 07:46 AM Procedure completed at 07:46 [email or web address] 07:46 AM ACT drawn dspell 07:49 AM Sign out completed: Radiation Dose 291.68 mGy Fluoro Time: 1.7 Isovue 370 - 200ml contrast 124.9 ml given by Marcus Alexander MD. Complications: NoneCardiac Rehab Consult needed: NoConfirmed administered medications: Yes dspell 07:50 AM QU=735 bpm, NXFK=749/95 mmhg, SpO2=91.0 % 07:51 AM At 07:51 the ACT was 200 seconds. [email or web address] 07:52 AM Isovue 370 - 200ml,1 Bottle(s) used. dspell 07:52 AM Sheath left in place to be pulled on floor/holding areaV+Pad dspellman 07:52 AM Family placed in consult room. [email or web address] 07:52 AM Complications: None dspellman 07:52 AM Fluoro Time: 1.7 dspellman 07:52 AM Isovue 370 - 200ml contrast 124.[address] Alexander. [email or web address] 07:53 AM Radiation Dose 291.68 mGy dspellman 07:53 AM Estimated Blood Loss: minimal [email or web address] 07:53 AM Post ECG Sinus Tachycardia dspellman 07:53 AM Post Blood Pressure 117/95 dspellman 07:55 AM 07:53 Post Pulses Bilateral DP 1+ [email or web address] 07:55 AM Information taught Cardiac Cath dspellman 07:56 AM Education needs Procedure, Plan of Care, and Responsibilities of Patient in Care dsp 07:56 AM Vitals capture stopped. 07:56 AM Learning barriers :None 07:56 AM Education Methods Verbal 07:56 AM Education evaluation Able to repeat information dsp 07:56 AM Site status No bleeding/hematoma - Lt Groin as reported by Trae Cárdenas RT (R) at 07:56 [facility] 07:56 AM Opsite applied dsp 07:56 AM Delay to floor Bed availability dspell 08:30 AM Patient c/o left shoulder pain 03/14. Nic Arceo notified of patient's c/o pain in left should and chest pressure. New orders received. kwitte 08:40 AM Time: 08:49 Fentanyl 50 mcg Intravenous Given by Jason Granado RN kwitte 08:50 AM Drink provided. Patient educated on post cath routine. Family at bedside. kwitte 09:30 AM Left femoral sheath pulled per this RN. Manual pressure being held with Vpad at present. itte 09:41 AM Oxygen at 2liters per NC applied. Spo2 increased to 94% at present. kwitte 09:45 AM Hemostasis obtained to left femoral artery. Patient educated on post sheath pull. Patient verbalized understanding. Dressing d/i. kwitte 09:59 AM Delay to floor Bed availability kwitte 09:59 AM Report given to Julia VERA Pt taken to Holding room Room #[id number]. 09:59 kwitte 09:59 AM Complications: None kwitte 10:00 AM Patient out of room: 10:00 kwitte Complications Complication None None None Hemodynamics Pressures Site Systolic/A Wave Diastolic/V Wave Mean AO 95 72 84 LV 136 11 35 LV 137 21 41 AO 143 89 111 AO 14 -27 -11 AO 133 77 97 Post Procedure Information Blood Pressure: 117/95 mmHg Rhythm: Sinus Tachycardia Post procedural instructions were given Site Checks Time Location Status Staff Sheath In? Note 07:56 AM Lt Groin No bleeding/hematoma Trae Cárdenas RT (R) Yes 08:15 AM Lt Groin No bleeding/ No Hematoma Jason Granado RN Yes 08:30 AM Lt Groin No bleeding/ No Hematoma Jason Granado RN Yes 08:45 AM Lt Groin No bleeding/ No Hematoma Jason Granado RN Yes 09:00 AM Lt Groin No bleeding/ No Hematoma Jason Granado RN Yes 09:15 AM Lt Groin No bleeding/ No Hematoma Jason Granado RN Yes 09:30 AM Lt Groin No bleeding/ No Hematoma Jason Granado RN 09:45 AM Lt Groin No bleeding/ No Hematoma Jason Granado RN 10:00 AM Lt Groin No bleeding/ No Hematoma Jason Granado RN Pulses Time Site Pre-Procedure Post-Procedure Note Bilateral DP & PT 1+ Bilateral radial 2+ 7:53:00 AM Bilateral DP 1+ 12/29/2017 8:00:00 AM Bilateral DP 1+ 12/29/2017 8:30:00 AM Bilateral DP 1+ 12/29/2017 9:00:00 AM Bilateral DP 1+ 12/29/2017 9:45:00 AM Bilateral DP 1+ Updated by Jason Granado RN on 12/29/2017 10:01:38 AM Jason Granado RN electronically signed on 12/29/2017 10:02:00 AM with status of Final
[2017-12-29] MEDS ORDERED: Dextrose Gel 15 GM/37.5 ML TUBE PO PRN ×2 (11:44)
[2017-12-29] MEDS ORDERED: D5% in Water 1,000 ML IVC PRN (11:44)
[2017-12-29] MEDS ORDERED: *HR* Dextrose 50 % in Water (Syg) 50 ML SYRINGE IVP PRN (11:44)
[2017-12-29] MEDS: Heparin 25,000 UNIT/500 ML D5W 25,000 UNIT/500 ML BAG IVC SCH ×2 (12:18→13:14)
[2017-12-29] MEDS: *HR* OxyCODONE/APAP 10/325 TABLET PO PRN ×2 (12:29→18:40)
[2017-12-29] MEDS ORDERED: GI Cocktail 40 ML EACH PO ONE (12:48)
--- NOTE | 2017-12-29 12:58 | Cardiology Progress Note ---
Date of Encounter: 12/29/17 Time of Encounter: 12:51 Assessment and Plan (1) ACS (acute coronary syndrome) Current Visit: Yes Status: Acute Troponin 4.47 on presentation with EKG changes concerning for STEMI. LHC revealed mild disease--30% right PDA. All other arteries angiographically free of disease. EF 20-25% on LHC. Check TTE. Reports chest burning that feels like reflux--GI cocktail ordered. ASA, Statin, BB. Continue to follow in consult. Discussed with primary team. Since no significant coronary disease noted on LHC, appreciate transfer to hospitalist service given her comorbidities of uncontrolled DMII and acute complaints of n/ v. (2) Cardiomyopathy Current Visit: Yes Status: Acute NICMP. EF 20-25% on LHC. Mild CAD, 30% right PDA, otherwise angiographically free of disease. TTE ordered for further evaluation. BB and ACEi started. Continue to monitor overnight. Euvolemic on exam, CXR negative. Continue home Lasix 40mg daily PO. CHF teaching given--2L fluid restriction and Na restriction. Recheck TTE as outpt. Qualifiers: Cardiomyopathy type: unspecified Qualified Code(s): I42.9 - Cardiomyopathy , unspecified (3) Sinus tachycardia Current Visit: Yes Status: Acute AVG HR 112. Sinus tach. Given her troponin elevation and sinus tach, EKG changes , order chest CTA to rule out PE. (4) Nausea & vomiting Current Visit: Yes Status: Acute Episode of nausea and vomiting. PRN Zofran ordered as well as GI cocktail. Hospitalist input also appreciated. Qualifiers: Vomiting type: unspecified Vomiting Intractability: unspecified Qualified Code(s): R11.2 - Nausea with vomiting, unspecified (5) Type 2 diabetes mellitus Current Visit: Yes Status: Acute On home insulin. Sliding scale ordered. No well controlled. Qualifiers: Diabetes mellitus termite inspector insulin use: unspecified senior care insulin use status Diabetes mellitus complication status: with unspecified complications Qualified Code(s): E11.8 - Type 2 diabetes mellitus with unspecified complications Discussion w patient/family: The assessment and plan as outlined above was discussed with the patient and/or family members who expressed understanding and agreement. All questions were answered. Thank you for involving us in the care of your patient. Please call with any questions. Subjective Principal diagnosis: ACS Interval history: Underwent LHC this AM for EKG changes concerning for STEMI. Troponin 4.47. Endorses chest/epigastric burning that she states feels like reflux. Nausea with episode of vomiting. LHC revealed mild plaque--right PDA 30%. All other arteries angiographically free of disease. EF 20-25%. Objective Vital Signs, Last 4 Hours Temp Pulse Resp BP Pulse Ox 12/29/17 10:27 97.6 F 113 20 125/52 94 Vital Signs Temp Pulse Resp BP Pulse Ox 12/29/17 10:27 97.6 F 113 20 125/52 94 12/29/17 07:09 74 24 148/93 95 12/29/17 06:57 113 26 141/80 95 12/29/17 06:47 115 26 129/75 95 12/29/17 06:28 114 24 139/69 94 12/29/17 06:07 97.4 F L 124 16 155/93 96 Intake and Output 12/28/17 12/29/17 12/29/17 23:59 07:59 15:59 Intake Total 120 / 120 Output Total 0 / 0 Balance 120 / 120 Intake: Oral 120 / 120 Output: Urine 0 / 0 Other: Stool Characteristics Normal for Patient Weight 72.575 kg Blood Glucose* 382 Patient Weight 12/29/17 23:59 Weight 72.575 kg General: Conversant, No Apparent Distress HEENT: Atraumatic, Normocephaly, Mucus Membranes Moist Neck: No JVD, Normal carotid pulses Cardiac: Reg Rate and Rhythm, Normal S1 and S2, No Murmur Lungs: Other (wheezes) Neuro: Alert and responsive, No focal deficits noted Abdomen: Soft, Non-Tender Skin: No rashes noted on visualized skin Musculoskeletal: No Chest Wall Tenderness Extremities: No Clubbing, No Cyanosis, No Edema, Normal Pulses Results 12/29/17 06:16 12/29/17 06:16 Short CBC 12/29/17 Range/Units 06:16 WBC 18.3 H (4.3-11.1) K/mcL Hgb 15.8 H (11.5-15.4) g/dL Hct 47.7 H (35.3-44.9) % Plt Count 359 (140-400) K/mcL Neutrophils # 16.7 H (1.6-8.9) K/mcL BMP 12/29/17 Range/Units 06:16 Sodium 130 L (136-145) mEq/L Potassium 4.8 (3.5-5.1) mEq/L Chloride 97 L (98-107) mEq/L Carbon Dioxide 19 L (23-29) mEq/L BUN 34 H (6-20) mg/dL Creatinine 1.06 (0.60-1.20) mg/dL Glucose 452 H (70-105) mg/dL Calcium 9.4 (8.6-10.3) mg/dL Cardiac Enzymes 12/29/17 Range/Units 06:16 Troponin I 4.47 H* (< 0.04) ng/mL Liver Function 12/29/17 Range/Units 06:16 Total Bilirubin 0.9 (0.3-1.0) mg/dL Direct Bilirubin 0.2 (0.0-0.2) mg/dL AST 30 (13-39) Units/L ALT 12 (7-52) Units/L Alkaline Phosphatase 87 (34-104) Units/L Albumin 4.0 (3.5-5.7) g/dL Urine 12/29/17 Range/Units 06:08 Urine Color Dark Yellow (Yellow) Urine Clarity Cloudy A (Clear) Urine pH 5.5 (5.0-8.0) pH Units Ur Specific [place] > 1.030 H (1.010-1.025) Urine Protein >=1000 H (Neg-Trace) mg/dL Urine Glucose (UA) >=1000 H (Normal) mg/dL Impressions Chest X-Ray 12/29/17 06:21 IMPRESSION: No acute findings. D/ / Anish Munoz / Anish Munoz Interpreting Provider: Anish Munoz Active Medications Alprazolam (Xanax) 0.5 mg PO TID RAÚL PRN Reason: Protocol Stop: 06/30/18 15:01 Aspirin (Aspirin) 81 mg PO DAILY RAÚL Stop: 07/01/18 09:01 Citalopram Hydrobromide (Celexa) 20 mg PO DAILY RAÚL Stop: 07/01/18 09:01 Dextrose/Water (Dextrose 50% (Syg)) 25 ml IVP AD PRN PRN Reason: Hypoglycemia Stop: 06/30/18 11:45 Furosemide (Lasix) 40 mg PO DAILY RAÚL Stop: 07/01/18 09:01 Glucagon (Glucagen) 1 mg IM ONCE PRN PRN Reason: Hypoglycemia Stop: 06/30/18 11:45 Glucose (Gluctose) 15 gm PO ONCE PRN PRN Reason: Hypoglycemia Stop: 06/30/18 11:45 Glucose (Gluctose) 30 gm PO ONCE PRN PRN Reason: Hypoglycemia Stop: 06/30/18 11:45 Heparin Sodium (Porcine) (Heparin) 4,000 unit IVP Q6HR PRN PRN Reason: SEE COMMENTS Stop: 06/30/18 06:40 Heparin Sodium (Porcine) (Heparin) 2,000 unit IVP Q6H PRN PRN Reason: SEE COMMENTS Stop: 06/30/18 06:40 Heparin Sodium/Dextrose (Heparin 25,000 Unit/500 Ml D5w) 25,000 unit in 500 mls @ 17.418 mls/hr IVC .Q24H RAÚL; 12 UNIT/KG/HR PRN Reason: Protocol Stop: 06/30/18 06:46 Dextrose (Dextrose 5%) 1,000 mls @ 100 mls/hr IVC .Q10H PRN PRN Reason: HYPOGLYCEMIA Stop: 06/30/18 11:45 Insulin Human Lispro (Humalog) 0 units SQ TIDAC RAÚL PRN Reason: Protocol Stop: 06/30/18 16:31 Insulin Human Lispro (Humalog) 0 units SQ HS RAÚL PRN Reason: Protocol Stop: 06/30/18 21:01 Lisinopril (Zestril) 2.5 mg PO DAILY RAÚL PRN Reason: Protocol Stop: 06/30/18 13:01 Metoprolol Succinate (Toprol Xl) 25 mg PO DAILY [facility] Stop: 06/30/18 13:01 Multi-Ingredient Liquid (Gi Cocktail) 40 ml PO ONCE ONE Stop: 12/29/17 12:49 Nitroglycerin (Nitroglycerin) 0.4 mg SL Q5MIN PRN PRN Reason: Chest Pain Stop: 06/30/18 06:36 Omeprazole (Prilosec) 40 mg PO DAILY [facility] Stop: 07/01/18 09:01 Ondansetron HCl (Zofran) 4 mg IVP Q6HR PRN; Protocol PRN Reason: Nausea Stop: 06/30/18 12:41 Oxycodone/Acetaminophen (Percocet 10325) 1 each PO Q6H PRN PRN Reason: Pain Stop: 06/30/18 11:44 Last Admin: 12/29/17 12:29 Dose: 1 each Tiotropium [place] (Spiriva) 18 mcg IH DAILYR RAÚL Stop: 07/01/18 10:01 - Imaging and Cardiology Cardiac cath: report reviewed - EKG Interpretation EKG results cardiology: other (AVG HR 112, sinus tach) Consult Discharge Plan - Plan Referrals: Alex Tapia Jr, MD [Primary Care Provider] -
[2017-12-29] MEDS ORDERED: Metoprolol XL (24 HR) Succ 25 MG TAB.ER.24H PO SCH (13:00)
[2017-12-29] MEDS ORDERED: Isovue-370 500 ML INFUS..BTL IV ONE ×2 (13:08→23:09)
[2017-12-29] MEDS: Ondansetron 4 MG/2 ML VIAL IVP PRN (14:03)
[2017-12-29] MEDS ORDERED: ALPRAZolam 0.5 MG TABLET PO SCH (15:00)
[2017-12-29] MEDS ORDERED: Acetaminophen 325 MG TABLET PO PRN (15:09)
[2017-12-29] MEDS ORDERED: Naloxone 0.4 MG/ML INJ IVP PRN (15:09)
[2017-12-29] MEDS ORDERED: ALPRAZolam 1 MG TABLET PO PRN (15:22)
[2017-12-29] MEDS ORDERED: Pantoprazole 40 MG VIAL IVP SCH (15:30)
[2017-12-29] MEDS: ALPRAZolam 1 MG TABLET PO SCH ×2 (15:47→21:05)
[2017-12-29] MEDS: 0.9 % Sodium Chloride 1,000 ML IVC SCH (15:51)
[2017-12-29] MEDS ORDERED: Piperacillin/Tazobactam 3.375 GM in 0.9 % Sodium Chloride Mini Bag 100 ML IVPB SCH ×2 (16:00→21:00)
--- NOTE | 2017-12-29 16:00 | Internal Med History&Physical ---
<Armando Rodriguez Issac - Last Filed: 12/29/17 16:47> Date of Encounter: 12/29/17 Time of Encounter: 14:00 Internal Medicine - H&P: HPI Chief complaint: Abdominal pain Admitted From: Direct Admit Plans for Post Hospital Care: Home History of present illness: Ms. Gomez is a 57 year old female w/PMH of CHF, COPD, diabetes controlled with insulin, and TIA (last incident 1 year ago) [facility] d/t changes in current status, including septic shock criteria, N/V, and uncontrolled DM. Pt. admitted for LHC which revealed mild disease--30% right PDA. All other arteries angiographically free of disease. EF 20-25% on LHC. Pt. now has WBC of 18.3, lactic acid of 5.3, HR of 113, RR of 24. Pt. reports nausea, chest discomfort in epigastric area, SOB, and generalized weakness but denies recent illness, fever, chills, vomiting, changes in vision, headache, palpitations, unusual bleeding, diarrhea, constipation, numbness, tingling, dizziness, lightheadedness, pre-syncope, or syncope. Past Med Surg Social Fam HX - Past Medical History Source: patient, old records reviewed Medical history: CHF, COPD, diabetes, TIA (One year ago) Psychiatric history: anxiety, depression - Past Surgical History Surgical History: other - Social History Smoking Status: Current every day smoker Packs per day: 1 PPD Smokeless Tobacco Status: No Alcohol use: none Drug use: marijuana Current living situation: Home, With Family Activity Level: Independent ambulation Recent Out of Country Travel Within the Last 8 Weeks: No Exposure or Possible Exposure to Illness During Travel: No - Family History Father Race: Family Member Ethnicity: Non- Living Status: Age at : 69 Cause of : MRSA Hx Family Cardiac Disorders: Yes (Quad bypass, HTN, HLD) Mother Race: Family Member Ethnicity: Non- Living Status: Still Living Hx Family Cardiac Disorders: Yes (Afib) Brother Race: Family Member Ethnicity: Non- Living Status: Still Living Hx Family Medical Disorders: No Internal Medicine - H&P: Meds Alprazolam [Xanax] 1 mg PO TID PRN 06/26/15 [History] Citalopram [CeleXA] 20 mg PO DAILY 06/26/15 [History] Furosemide [Lasix] 40 mg PO DAILY 06/26/15 [History] Insulin LISPRO [HumaLOG] 5 units SQ TIDWM 06/26/15 [History] Omeprazole [PriLOSEC] 40 mg PO DAILY 06/26/15 [History] Tiotropium [Spiriva] 1 puff IH DAILY 06/26/15 [History] Aspirin 81 mg PO DAILY 02/06/16 [History] Oxycodone HCl/Acetaminophen [Percocet 10-325 mg Tablet] 1 tab PO Q6H PRN [History] 3 Allergy/AdvReac Type Severity Reaction Status Date / Time Procaine [From Novocain] Allergy Difficulty Verified 12/29/17 06:06 Breathing, SWELLING All Systems PM: A 10-system review of systems was performed and is negative for pertinent findings except as documented above in the HPI. - Constitutional Constitutional: as per HPI, fatigue, weakness, no chills, no fever(s), no night sweats - EENT Eyes: no change in vision, no discharge, no pain, no photophobia Ears: no ear discharge, no ear pain, no tinnitus Nose, mouth and throat: no dysphagia, no nasal discharge, no neck pain, no sore throat - Breasts Breasts: as per HPI - Cardiovascular Cardiovascular ROS IM: as per HPI, dyspnea, dyspnea on exertion, no chest pain, no diaphoresis, no lightheadedness, no palpitations, no syncope - Respiratory Respiratory: as per HPI, dyspnea, dyspnea on exertion, no cough, no wheezing, no excessive phlegm production - Gastrointestinal Gastrointestinal: as per HPI, abdominal pain, nausea, no diarrhea, no hematemesis, no hematochezia, no melena, no vomiting - Genitourinary Genitourinary: no change in urinary stream, no dysuria, no flank pain, no hematuria Menstruation: as per HPI - Musculoskeletal Musculoskeletal ROS IM: no numbness, no tingling - Integumentary Integumentary IM: no rash, no unusual bruising - Neurological Neurological ROS: as per HPI, weakness, no confusion, no convulsions, no focal weakness, no numbness, no tingling, no tremor(s) - Psychiatric Psychiatric: as per HPI, anxiety, depression - Endocrine Endocrine IM: as per HPI - Hematologic/Lymphatic Hematologic/Lymphatic: no easy bruising - Allergic/Immunologic Allergic/Immunologic: as per HPI - Constitutional Vitals: Temp Pulse Resp BP Pulse Ox 97.6 F 102 20 106/67 94 12/29/17 10:27 12/29/17 14:11 12/29/17 10:27 12/29/17 14:11 12/29/17 10:27 General appearance: Present: cooperative, mild distress (Abdominal pain, nausea) , A&O X 3, pleasant, answers questions appropriately - Head Head exam: Present: atraumatic, normocephalic - Eye Eye exam: Present: PERRL, conjuntiva pink, sclera anicteric Pupils: Present: PERRL - ENT ENT exam: Present: normal exam - Neck Neck exam general surgery: Present: normal inspection, supple, trachea midline - Respiratory Respiratory exam: Present: CTAB. Absent: accessory muscle use, rales, rhonchi, wheezes - Cardiovascular Cardiovascular exam: Present: +S1, +S2, tachycardia. Absent: diastolic murmur, gallop, rubs, systolic murmur - GI/Abdominal GI/Abdominal exam: Present: normal bowel sounds, soft, tenderness, no peritoneal signs. Absent: distended - Rectal Rectal exam: Present: deferred - Additional comments: exam deferred. - Extremities Exam Extremities exam: Present: warm, radial pulses palpable and symmetrical. Absent : calf tenderness, cyanotic, pedal edema - Back Exam Back exam: Present: normal inspection - Neurological Exam Neurological exam: Present: CN II-XII intact, oriented X3, no focal deficits. Absent: pronater drift, facial droop, speech deficit - Psychiatric Psychiatric exam: Present: normal affect, normal mood - Skin Skin exam: Present: dry, intact Internal Med - H&P Results - Labs CBC & Chem 7: 12/29/17 06:16 12/29/17 06:16 - Impressions ITS Impressions Chest CTA 12/29/17 13:08 IMPRESSION: 1. No evidence for acute pulmonary embolism. 2. Minor patchy bilateral posterior basal lower lobe parenchymal densities which may represent subsegmental atelectasis or residual of prior pneumonitis. 3. Indeterminate 2.8 cm hypodense right thyroid nodule with some calcifications. Ultrasound recommended for further evaluation. D/ / Moustapha Vasquez MD / Moustapha Vasquez MD Interpreting Provider: Moustapha Vasquez MD - Diagnostic Studies Chest x-ray Additional comments: Impressions Chest X-Ray 12/29/17 06:21 IMPRESSION: No acute findings. D/ / Anish Munoz / Anish Munoz Interpreting Provider: Anish Munoz Other Images Additional comments: Impressions Chest CTA 12/29/17 13:08 IMPRESSION: 1. No evidence for acute pulmonary embolism. 2. Minor patchy bilateral posterior basal lower lobe parenchymal densities which may represent subsegmental atelectasis or residual of prior pneumonitis. 3. Indeterminate 2.8 cm hypodense right thyroid nodule with some calcifications. Ultrasound recommended for further evaluation. D/ / Moustapha Vasquez MD / Moustapha Vasquez MD Interpreting Provider: Moustapha Vasquez MD - Assessment and plan (1) Septic shock Current Visit: Yes Status: Acute Assessment and plan: Septic shock d/t current lactic acid of 5.3, WBC of 18.3, HR of 113, and RR of 24. No identifiable source of infection at this time. Blood cultures x2 stat. UA w/reflex micro and culture ordered stat. Respiratory infection panel stat. IV fluids 0.9 NS @ 100 mL/HR (will increase if pt. does not show signs of fluid overload d/t CHF dx and current EF of 20-25%). Timed lactic acids. IVPB vancomycin w/pharmacy dosing and Zosyn 3.375 gm Q8HR for infection coverage to begin immediately. Will adjust abx based on culture and infection panel results. Continuous cardiac telemetry. Supplemental O2 w/titration and SpO2 monitoring. Pt. and f/u labs to be monitored closely. Pt. discussed w/Dr. Jiménez who agrees w/plan of care. Pt. is high risk for further morbidity and infection d/t current septic shock, post-LHC status, elevated troponin, hx; and risk factors of DM, CHF, COPD, and current tobacco abuse. Inpatient. (2) Nausea & vomiting Current Visit: Yes Status: Acute Assessment and plan: Acute N/V that was present on admission and pt. reports is resolving somewhat. Zofran 4 mg IVP every 6 hours when necessary for nausea and vomiting. Protonix 40 mg IVP twice a day. CT of abdomen/pelvis w/o contrast ordered d/t continued epigastric pain/nausea. No contrast used d/t recent LHC contrast. Monitor I&O and daily weight. NPO for now and will advance diet as tolerated. Qualifiers: Vomiting type: unspecified Vomiting Intractability: unspecified Qualified Code(s): R11.2 - Nausea with vomiting, unspecified (3) Generalized weakness Current Visit: Yes Status: Acute Assessment and plan: Acute generalized weakness post-LHC and d/t current septic shock. Falls/safety precautions, up with assist, bedrest with bathroom privileges with assist only (4) Hyponatremia Current Visit: Yes Status: Acute Assessment and plan: Acute hyponatremia w/sodium of 130 today. Pt. receiving IV fluids for septic shock. Will monitor sodium and chloride in f/u labs to ensure sodium does not increase >8-10 mEq in 24 hours. (5) Elevated troponin Current Visit: Yes Status: Acute Assessment and plan: Acutely elevated troponin. Initial troponin on admission 4.47. Troponin now 4.87. Cardiac cause versus current septic shock. Pt. reports epigastric pain but denies CP. Will continue to trend troponins. Pt. placed on heparin drip post -LHC. (6) ACS (acute coronary syndrome) Current Visit: Yes Status: Acute Assessment and plan: Per Cardiology: Troponin 4.47 on presentation with EKG changes concerning for STEMI. LHC revealed mild disease--30% right PDA. All other arteries angiographically free of disease. EF 20-25% on LHC. Check TTE. Reports chest burning that feels like reflux--GI cocktail ordered. ASA, Statin, BB. Continuous cardiac telemetry. (7) Cardiomyopathy Current Visit: Yes Status: Acute Assessment and plan: Per Cardiology: NICMP. EF 20-25% on LHC. Mild CAD, 30% right PDA, otherwise angiographically free of disease. TTE ordered for further evaluation. BB and ACEi started. Continue to monitor overnight. Euvolemic on exam, CXR negative. Continue home Lasix 40mg daily PO. CHF teaching given--2L fluid restriction and Na restriction. Recheck TTE as outpt. Qualifiers: Cardiomyopathy type: unspecified Qualified Code(s): I42.9 - Cardiomyopathy , unspecified (8) CHF (congestive heart failure) Current Visit: Yes Status: Chronic Assessment and plan: Hx of chronic CHF. EF 20-25% on LHC. LHC revealed mild disease: 30% right PDA. All other arteries angiographically free of disease. Continuous cardiac telemetry. Pt. receiving IV fluids @ 100 mL/HR d/t septic shock. Monitor for signs of fluid overload and continue PO lasix. Qualifiers: Heart failure type: unspecified Heart failure chronicity: chronic Qualified Code(s): I50.9 - Heart failure, unspecified (9) COPD (chronic obstructive pulmonary disease) Current Visit: Yes Status: Chronic Assessment and plan: Hx of chronic COPD. Stable. Supplemental O2 w/titration and SpO2 monitoring. Xopenex 1.25 every 6. Qualifiers: COPD type: unspecified COPD Qualified Code(s): J44.9 - Chronic obstructive pulmonary disease, unspecified (10) Hx-TIA (transient ischemic attack) Current Visit: Yes Status: Chronic Assessment and plan: Hx of TIA. Last reported episode approx. 1 year ago. Pt. states she was placed on 81 mg daily aspirin and has had no episodes since. Will monitor. (11) Type 2 diabetes mellitus Current Visit: Yes Status: Chronic Assessment and plan: Hx of chronic DM controlled w/insulin. Patient's blood glucose today for 52. Will discontinue medium dose correction insulin sliding scale and replaced with high dose correction insulin sliding scale with hypoglycemic protocol. A1c in a.m. labs. BG checks before meals at bedtime. Qualifiers: Diabetes mellitus exterminator termite insulin use: unspecified exterminator termite insulin use status Diabetes mellitus complication status: with unspecified complications Qualified Code(s): E11.8 - Type 2 diabetes mellitus with unspecified complications (12) DVT prophylaxis Current Visit: Yes Status: Acute Assessment and plan: Patient placed on heparin drip by cardiology due to LHC. Monitor patient for signs of bleeding. (13) MARGRET (acute kidney injury) Current Visit: Yes Status: Acute Assessment and plan: Acute kidney injury. Will use IV fluids judiciously and avoid nephrotoxins. Monitor I&O and daily weight d/t CHF dx. - Time Spent With Patient Total time spent is greater than 50% in coordination of care (as documented) at patient's floor/unit and/or counseling patient: Greater than 35 minutes <Salma Jiménez - Last Filed: 12/29/17 17:15> Date of Encounter: 12/29/17 Internal Medicine - H&P: HPI History of present illness: Ms. Gomez is a 57 year old female All Systems PM: A 10-system review of systems was performed and is negative for pertinent findings except as documented above in the HPI. - Constitutional Vitals: Temp Pulse Resp BP Pulse Ox 98.8 F 94 19 132/83 95 12/29/17 16:24 12/29/17 16:24 12/29/17 16:24 12/29/17 16:24 12/29/17 16:24 Internal Med - H&P Results - Labs CBC & Chem 7: 12/29/17 06:16 12/29/17 06:16 Labs: Cardiac Enzymes 12/29/17 Range/Units 15:48 Troponin I 4.87 H* (< 0.04) ng/mL - Impressions ITS Impressions Chest CTA 12/29/17 13:08 IMPRESSION: 1. No evidence for acute pulmonary embolism. 2. Minor patchy bilateral posterior basal lower lobe parenchymal densities which may represent subsegmental atelectasis or residual of prior pneumonitis. 3. Indeterminate 2.8 cm hypodense right thyroid nodule with some calcifications. Ultrasound recommended for further evaluation. D/ / Moustapha Vasquez MD / Moustapha Vasquez MD Interpreting Provider: Moustapha Vasquez MD - Attending Attestation Patient was examined, review of the note agree with plan of care. Patient got admitted for cardiac evaluation due to raised troponin and epigastric and mediastinal pain therefore heart catheter was done with no acute finding. After finding high blood count and lactic acid border measurer transferred under hospitalist service for further evaluation. Patient had generalized weakness for several days but for last 3-4 days had epigastric pain associated with nausea. Patient also had 2-3 vomiting yesterday but today morning pain got worse therefore decided to come to ER. In ER abnormal troponin and EKG was found therefore border measurer was consulted. Patient is in sepsis but unknown etiology therefore panculture and broader spectrum antibiotic is started. CT abdomen also ordered. Amylase lipase within normal limit. Patient has cardiomyopathy with very low ejection fraction 20-25% therefore hydration will be done with a strict I&O's and close monitoring. Will also consult border measurer for constant rise in troponin that could be due to underlying sepsis as well. Stool occult and PPI will be ordered. - Assessment and plan (1) ACS (acute coronary syndrome) Current Visit: Yes Status: Acute (2) Nausea & vomiting Current Visit: Yes Status: Acute Qualifiers: Vomiting type: unspecified Vomiting Intractability: unspecified Qualified Code(s): R11.2 - Nausea with vomiting, unspecified (3) Type 2 diabetes mellitus Current Visit: Yes Status: Chronic Qualifiers: Diabetes mellitus exterminator termite insulin use: unspecified retirement insulin use status Diabetes mellitus complication status: with unspecified complications Qualified Code(s): E11.8 - Type 2 diabetes mellitus with unspecified complications (4) Cardiomyopathy Current Visit: Yes Status: Acute Qualifiers: Cardiomyopathy type: unspecified Qualified Code(s): I42.9 - Cardiomyopathy , unspecified (5) CHF (congestive heart failure) Current Visit: Yes Status: Chronic Qualifiers: Heart failure type: unspecified Heart failure chronicity: chronic Qualified Code(s): I50.9 - Heart failure, unspecified (6) COPD (chronic obstructive pulmonary disease) Current Visit: Yes Status: Chronic Qualifiers: COPD type: unspecified COPD Qualified Code(s): J44.9 - Chronic obstructive pulmonary disease, unspecified (7) Hx-TIA (transient ischemic attack) Current Visit: Yes Status: Chronic (8) DVT prophylaxis Current Visit: Yes Status: Acute (9) Septic shock Current Visit: Yes Status: Acute (10) Generalized weakness Current Visit: Yes Status: Acute (11) Elevated troponin Current Visit: Yes Status: Acute (12) Hyponatremia Current Visit: Yes Status: Acute (13) MARGRET (acute kidney injury) Current Visit: Yes Status: Acute - Time Spent With Patient Total time spent is greater than 50% in coordination of care (as documented) at patient's floor/unit and/or counseling patient:
[2017-12-29] MEDS ORDERED: Insulin LISPRO 300 UNITS/3 ML VIAL SQ SCH ×2 (16:30→21:00)
[2017-12-29 17:05] LABS: Adenovirus Not Detected (Not Detect); Bordetella Pertussis Not Detected (Not Detect); Chlamydophila pneumoniae Not Detected (Not Detect); Coronavirus 229E Not Detected (Not Detect); Coronavirus HKU1 Not Detected (Not Detect); Coronavirus NL63 Not Detected (Not Detect); Coronavirus OC43 Not Detected (Not Detect); Human Metapneumovirus Not Detected (Not Detect); Human Rhinovirus/Enterovirus Not Detected (Not Detect); Influenza A Subtype 2009 H1 Not Detected (Not Detect); Influenza A Untypeable Not Detected (Not Detect); Influenza B Not Detected (Not Detect); Mycoplasma pneumoniae Not Detected (Not Detect); Parainfluenza Virus 1 Not Detected (Not Detect); Parainfluenza Virus 2 Not Detected (Not Detect); Parainfluenza Virus 3 Not Detected (Not Detect); Parainfluenza Virus 4 Not Detected (Not Detect); Respiratory Syncytial Virus Not Detected (Not Detect)
[2017-12-29] MEDS: Pantoprazole 40 MG VIAL IVP SCH (17:39)
[2017-12-29] MEDS: Insulin LISPRO 300 UNITS/3 ML VIAL SQ SCH (17:44)
[2017-12-29 17:52] LABS: Bilirubin,Urine Negative (Negative); Blood,Urine Trace (Negative); Clarity,Urine Clear (Clear); Color,Urine Yellow (Yellow); Glucose,Urine (UA) 250 mg/dL (Normal); Ketones,Urine Trace mg/dL (Negative); Leukocyte Esterase,Urine Negative (Negative); Nitrite,Urine Negative (Negative); PH,Urine 5.5 pH Units (5.0-8.0); Protein,Urine >=1000 mg/dL (Neg-Trace); Specific Gravity,Urine > 1.030 (1.010-1.025); Urobilinogen,Urine Normal (Normal)
[2017-12-29 18:14] LABS: Squamous Epithelial Cell,Urine Few per lpf (None-Few)
[2017-12-29 18:17] LABS: Bacteria,Urine Few per hpf (None-Few); RBC,Urine 0-3 per hpf (0-3); WBC,Urine 0-3 per hpf (0-3); Yeast,Urine Few per hpf (None Seen)
[2017-12-29] MEDS ORDERED: Levalbuterol Neb 1.25 MG/3 ML ONE (19:26)
[2017-12-29] MEDS: Levalbuterol Neb 1.25 MG/3 ML IH SCH (19:27)
[2017-12-29 20:08] LABS: INR 1.2; Prothrombin Time 12.9 Seconds (9.4-12.1)
[2017-12-29] MEDS ORDERED: *HR* Ticagrelor 90 MG TABLET PO SCH (21:00)
[2017-12-29 22:22] LABS: INR 1.3; Prothrombin Time 13.7 Seconds (9.4-12.1)
[2017-12-29 22:39] LABS: Basophils % 0.1 %; Hematocrit 27.1 % (35.3-44.9); Immature Granulocytes % 0.7 % (0-4); Lymphocytes # 1.3 K/mcL (0.6-4.6); Lymphocytes % 8.6 %; Mean Corpuscular HGB Conc 33.9 g/dL (31.6-35.5); Mean Corpuscular Hemoglobin 26.6 pg (28.0-33.3); Mean Corpuscular Volume 78.3 fL (83.0-100.0); Mean Platelet Volume 9.4 fL (9.4-12.4); Monocytes # 0.9 K/mcL (0.0-1.3); Monocytes % 5.6 %; Platelet Count 225 K/mcL (140-400); Red Blood Count 3.46 M/mcL (3.82-4.97); Red Cell Distribution Width 17.2 % (11.5-14.5)
[2017-12-29 22:42] LABS: Hemoglobin 9.2 g/dL (11.5-15.4)
[2017-12-29] MEDS ORDERED: 0.9 % Sodium Chloride 250 ML IVC ONE (22:54)
[2017-12-29] MEDS ORDERED: 0.9 % Sodium Chloride 250 ML ONE (23:23)
[2017-12-29 23:51] LABS: Basophils % 0.2 %; Hematocrit 26.6 % (35.3-44.9); Hemoglobin 8.9 g/dL (11.5-15.4); Immature Granulocytes % 0.6 % (0-4); Lymphocytes # 1.4 K/mcL (0.6-4.6); Lymphocytes % 7.9 %; Mean Corpuscular HGB Conc 33.5 g/dL (31.6-35.5); Mean Corpuscular Hemoglobin 26.3 pg (28.0-33.3); Mean Corpuscular Volume 78.7 fL (83.0-100.0); Mean Platelet Volume 9.1 fL (9.4-12.4); Monocytes # 1.2 K/mcL (0.0-1.3); Monocytes % 6.9 %; Platelet Count 172 K/mcL (140-400); Red Blood Count 3.38 M/mcL (3.82-4.97); Red Cell Distribution Width 17.2 % (11.5-14.5); Segmented Neutrophils % 84.4 %
[2017-12-30 00:20] LABS: Troponin I 3.52 ng/mL (< 0.04)
--- NOTE | 2017-12-30 00:41 | Event Note ---
Date of Encounter: 12/29/17 Time of Encounter: 21:28 Alerted by pts. nurse that pt. had developed a hematoma on left thigh post-LHC this evening which was spreading. Stated that pt. would not lay still in bed and would not allow pressure to site. Pt. became hypotensive and rapid response called. Pts. BP was 72/53. Pressure bandage was applied below site with manual pressure applied above site per protocol. Concern for spreading hematoma. Hgb drop from 15.8 to 9.2. Heparin drip was discontinued at 19:[address] Julio of situation w/recommendation for stat CBC, 250 0.9 IV fluid bolus over 30 minutes for hypotension, CT of abdomen/pelvis to assess for retroperitoneal bleeding, and Femostop placed by someone in ICU. 6 units of PRBCs ordered per Dr. Byers along with US of pelvis and US retroperitoneal complete to r/o bleeding. CBC shows Hgb of 8.9. Notified Dr. Julio of orders w/ recommendation to continue pressure above site for additional 25 minutes and consult to Vascular Surgery. Pts. BP 94/64 post-250 bolus. Pt. to be transferred from [facility] to ICU 5. H/H Q4HR ordered. Patient to be monitored closely for additional signs of hematoma and hypotension.
[2017-12-30] MEDS: Insulin LISPRO 300 UNITS/3 ML VIAL SQ SCH ×5 (00:49→19:36)
[2017-12-30] MEDS: Levalbuterol Neb 1.25 MG/3 ML IH SCH ×4 (03:54→21:52)
[2017-12-30] MEDS: Pantoprazole 40 MG VIAL IVP SCH ×2 (05:24→17:35)
[2017-12-30] MEDS: ALPRAZolam 1 MG TABLET PO SCH ×3 (08:19→20:00)
[2017-12-30] MEDS: *HR* OxyCODONE/APAP 10/325 TABLET PO PRN ×3 (08:36→14:37)
[2017-12-30] MEDS: Piperacillin/Tazobactam 3.375 GM in 0.9 % Sodium Chloride Mini Bag 100 ML IVPB SCH ×3 (08:37→23:01)
[2017-12-30] MEDS: Ondansetron 4 MG/2 ML VIAL IVP PRN (08:47)
[2017-12-30] MEDS ORDERED: Furosemide 40 MG TABLET PO SCH (09:00)
[2017-12-30] MEDS ORDERED: Tiotropium 18 MCG inhalation IH SCH ×2 (09:00→10:00)
[2017-12-30] MEDS ORDERED: Aspirin 81 MG TAB.CHEW PO SCH (09:00)
[2017-12-30] MEDS ORDERED: Perflutren Lipid Microsphere 2 ML VIAL ONE (10:48)
[2017-12-30 12:00] LABS: Basophils # 0.1 K/mcL (0.0-0.2); Basophils % 0.3 %; Hematocrit 44.5 % (35.3-44.9); Immature Granulocytes % 0.7 % (0-4); Lymphocytes # 2.2 K/mcL (0.6-4.6); Lymphocytes % 11.3 %; Mean Corpuscular HGB Conc 33.7 g/dL (31.6-35.5); Mean Corpuscular Hemoglobin 27.4 pg (28.0-33.3); Mean Corpuscular Volume 81.2 fL (83.0-100.0); Mean Platelet Volume 9.1 fL (9.4-12.4); Monocytes # 1.2 K/mcL (0.0-1.3); Platelet Count 222 K/mcL (140-400); Red Blood Count 5.48 M/mcL (3.82-4.97); Red Cell Distribution Width 16.8 % (11.5-14.5); Segmented Neutrophils % 81.7 %
[2017-12-30 12:05] LABS: INR 1.1; Prothrombin Time 11.6 Seconds (9.4-12.1)
[2017-12-30 12:08] LABS: Activated Partial Thrombo Time 24.7 Seconds (26.0-36.0)
[2017-12-30 12:21] LABS: Estimated Average Glucose 148 mg/dl; Hemoglobin A1C 6.8 %
[2017-12-30 12:52] LABS: Albumin 3.4 g/dL (3.5-5.7); Albumin/Globulin Ratio 1.4 (1.1-2.2); Bilirubin,Total 0.7 mg/dL (0.3-1.0); Calcium 8.5 mg/dL (8.6-10.3); Chol/HDL Ratio 2.6 (0-4.9); Globulin 2.5 g/dL (2.4-3.5); Magnesium 1.8 mg/dL (1.6-2.6); Potassium 4.2 mEq/L (3.5-5.1); Total Protein 5.9 g/dL (6.4-8.9)
[2017-12-30] MEDS: *HR* Morphine 2 MG/ML SYRINGE IVP PRN ×4 (13:00→19:36)
--- NOTE | 2017-12-30 13:26 | Vascular/Endovasc Consult Note ---
Date of Encounter: 12/30/17 Time of Encounter: 13:10 Assessment and Plan (1) Hematoma Current Visit: Yes Status: Acute The patient underwent a left heart catheterization on 12/29/17 for a STEMI. She developed a left thigh hematoma while heparinized after the procedure. She received 6u PRBCs and is hemodynamically stable. Her exam reveals a stable left thigh hematoma. There is no pulsatile mass. Her CT reveals no evidence of a retorperitoneal hematoma or pseudoaneurysm. She had two hannah bandages wrapped tightly around her left thigh. Upon release of the hannah bandages her left leg pain resolved. She has significant left leg edema. Will obtain a stat venous duplex to rule out a DVT. Recommend bedrest today with progressive ambulation tomorrow. Recheck hemoglobin tomorrow. (2) Atherosclerosis of [place] arteries of extremities with intermittent claudication, bilateral legs Current Visit: Yes Status: Chronic The patient has a history of peripheral vascular disease. She underwent right superficial femoral artery angioplasty [place] [address] Walker. Her feet are warm and she has no signs of limb threatening ischemia. She denies claudication , rest pain, ulceration or gangrene. (3) ST elevation (STEMI) myocardial infarction Current Visit: Yes Status: Acute Qualifiers: Involved coronary artery: unspecified coronary artery Qualified Code(s): I21.3 - ST elevation (STEMI) myocardial infarction of unspecified site (4) Type 2 diabetes mellitus Current Visit: Yes Status: Chronic Qualifiers: Diabetes mellitus half-way insulin use: unspecified intermediate manager insulin use status Diabetes mellitus complication status: with unspecified complications Qualified Code(s): E11.8 - Type 2 diabetes mellitus with unspecified complications (5) COPD (chronic obstructive pulmonary disease) Current Visit: Yes Status: Chronic Qualifiers: COPD type: unspecified COPD Qualified Code(s): J44.9 - Chronic obstructive pulmonary disease, unspecified - History of Present Illness Consult date: 12/30/17 Requesting physician: Armando Rodriguez Consult reason: Left thigh hematoma Chief complaint: Left thigh and leg pain History of present illness: Ms. Gomez is a 57 year old female with a history of diabetes who present to [facility] ER with a STEMI on 12/29/17. She was taken to the label operator and underwent a LHC. She did not require intervention but was noted to have a dilated LV and an EF of 20-25%. She was transferred to the 2A and placed on a heparin drip. During the night, she required a rapid repsonse due to hypotension. She was found to have an expanding left thigh hematoma and her hemaglobin had decreased significantly. Her heparin was discontinued and the patient received 6 units of PRBCs and a CT scan. The CT confirmed a left thigh hematoma. The patient was transferred to the ICU. A consult was placed, but vascular surgery was not contacted. Vascular surgery became aware of this patient while reviewing [employer] this afternoon and the patient is now being assessed. The patient reports that 9/10 left leg pain and states that morphine has not been helpful. She denies abdominal, flank or back pain. She is alert and oriented. She denies any chest pain or shortness of breath. Past Med Surg Social Fam HX - Past Medical History Medical history: CHF, COPD, diabetes, TIA (One year ago) Psychiatric history: anxiety, depression - Past Surgical History Surgical History: other - Social History Smoking Status: Current every day smoker Packs per day: 1 PPD Smokeless Tobacco Status: No Alcohol use: none Drug use: marijuana - Family History Father Race: Family Member Ethnicity: Non- Living Status: Age at : 69 Cause of : MRSA Hx Family Cardiac Disorders: Yes (Quad bypass, HTN, HLD) Mother Race: Family Member Ethnicity: Non- Living Status: Still Living Hx Family Cardiac Disorders: Yes (Afib) Brother Race: Family Member Ethnicity: Non- Living Status: Still Living Hx Family Medical Disorders: No Medications and Allergies Alprazolam [Xanax] 1 mg PO TID PRN 06/26/15 [History] Citalopram [CeleXA] 20 mg PO DAILY 06/26/15 [History] Furosemide [Lasix] 40 mg PO DAILY 06/26/15 [History] Insulin LISPRO [HumaLOG] 5 units SQ TIDWM 06/26/15 [History] Omeprazole [PriLOSEC] 40 mg PO DAILY 06/26/15 [History] Tiotropium [Spiriva] 1 puff IH DAILY 06/26/15 [History] Aspirin 81 mg PO DAILY 02/06/16 [History] Oxycodone HCl/Acetaminophen [Percocet 10-325 mg Tablet] 1 tab PO Q6H PRN [History] 3 Allergy/AdvReac Type Severity Reaction Status Date / Time Procaine [From Novocain] Allergy Difficulty Verified 12/29/17 06:06 Breathing, SWELLING All Systems Review: The remainder of the systems were reviewed and are negative - Constitutional Constitutional: no chills, no fever(s) - Cardiovascular Cardiovascular: no chest pain at rest, no dyspnea at rest - Vascular Vascular: lower extremity swelling (left) - Respiratory Respiratory: no cough - Gastrointestinal Gastrointestinal: no abdominal pain Exam Vital Signs, Last 4 Hours Temp Pulse Resp BP Pulse Ox 12/30/17 12:55 97.5 F L 85 17 112/55 94 12/30/17 12:01 97.5 F L 12/30/17 11:15 16 94 12/30/17 11:00 76 13 110/65 97 12/30/17 09:43 97.3 F L 73 12 106/60 97 General: Present: Conversant, Well nourished HEENT: Present: Pupils equal Neck: Absent: JVD, Lymphadenopathy, Left Carotid bruit, Right Carotid bruit Cardiac: Present: Reg Rate and Rhythm, Normal S1 and S2 Lungs: Present: Normal Breath Sounds, No Wheeze, Rales, Rhonchi Neuro: Present: Alert and responsive, No focal deficits noted, Motor nerves grossly intact, Sensory nerves grossly intact Abdomen: Present: Soft, Non-tender, Masses, Other (no ecchymosis) Vascular: Present: Normal capillary refill, Pulse, normal (pedal signals present ), Edema (1+ left lower extremity edema from thigh to ankle,), Color/ Temperature (feet warm), Other (left thigh hematoma). Absent: Cyanosis Skin: Present: No rashes noted on visualized skin, Wound/ulcer(s) (left femoral access site without erythema or drainage) Musculoskeletal: Present: No Chest Wall Tenderness Consult Discharge Plan - Plan Referrals: Alex Tapia Jr, MD [Primary Care Provider] -
[2017-12-30] MEDS: 0.9 % Sodium Chloride 1,000 ML IVC SCH ×4 (14:40→21:22)
[2017-12-30 17:03] LABS: Hematocrit 38.5 % (35.3-44.9)
[2017-12-30 17:06] LABS: Hemoglobin 13.1 g/dL (11.5-15.4)
--- NOTE | 2017-12-30 17:22 | Cardiology Progress Note ---
Date of Encounter: 12/30/17 Time of Encounter: 15:00 Assessment and Plan (1) ACS (acute coronary syndrome) Current Visit: Yes Status: Acute Per cardiology: -Troponin 4.47 on presentation with EKG changes concerning for STEMI. Troponins down trending. -LHC revealed mild disease--30% right PDA. All other arteries angiographically free of disease. EF 20-25% on LHC. -TTE with LVEF 25-30% -Denies chest pain overnight. -REcommend ASA, Statin, BB, brilinta. -Unfortunately, patient developed a large left hematoma. Has been transfused with PRBC. -Will continue to monitor. (2) Cardiomyopathy Current Visit: Yes Status: Acute Per cardiology: -NICMP. EF 20-25% on LHC. Mild CAD, 30% right PDA, otherwise angiographically free of disease. -TTE with LVEF 25-30%, segmental LV systolic dysfunction, mild diastolic dysfunction. -BB and ACEi started. Continue to monitor overnight. -Euvolemic on exam, CXR negative. Continue home Lasix 40mg daily PO. -CHF teaching given--2L fluid restriction and Na restriction. -Recheck TTE as outpt. -Will continue to monitor. Qualifiers: Cardiomyopathy type: unspecified Qualified Code(s): I42.9 - Cardiomyopathy , unspecified Discussion w patient/family: The assessment and plan as outlined above was discussed with the patient who expressed understanding and agreement. All questions were answered. Thank you for involving us in the care of your patient. Please call with any questions. Discussed and reviewed with Dr.John Meek. Subjective Principal diagnosis: ACS Interval history: Patient reports she is feeling much better today. Denies chest pain. Reports some shortness of breath. Reports groin pain only with position change. Objective Vital Signs, Last 4 Hours Temp Pulse Resp BP Pulse Ox 12/30/17 17:00 77 13 95 12/30/17 16:10 16 97 12/30/17 16:00 76 12 91/54 98 12/30/17 15:21 97.7 F 12/30/17 14:00 76 12 98/60 98 General: Conversant, No Apparent Distress HEENT: Atraumatic, Normocephaly, Mucus Membranes Moist Neck: No JVD, Normal carotid pulses Cardiac: Reg Rate and Rhythm, Normal S1 and S2, No Murmur Lungs: Normal Breath Sounds, No Wheeze, Rales, Rhonchi Neuro: Alert and responsive, No focal deficits noted Abdomen: Soft, Non-Tender Skin: No rashes noted on visualized skin, Other (Left groin access site with large hematoma noted. ) Musculoskeletal: No Chest Wall Tenderness Extremities: No Clubbing, No Cyanosis, No Edema, Normal Pulses Results 12/30/17 16:53 12/30/17 11:48 Lab Results 12/29/17 12/29/17 12/29/17 19:37 21:31 22:07 WBC 15.3 H Hgb 9.2 L D Hct 27.1 L Plt Count 225 INR 1.2 APTT Sodium Potassium Chloride Carbon Dioxide BUN Creatinine Glucose Calcium Magnesium Total Bilirubin AST ALT Alkaline Phosphatase Troponin I 3.80 H* B-Natriuretic Peptide Amylase Lipase 12/29/17 12/29/17 12/29/17 22:07 22:07 22:07 WBC Hgb Hct Plt Count INR 1.3 APTT Sodium Potassium Chloride Carbon Dioxide BUN Creatinine Glucose Calcium Magnesium Total Bilirubin AST ALT Alkaline Phosphatase Troponin I 3.57 H* B-Natriuretic Peptide 4323 H Amylase Lipase 12/29/17 12/29/17 12/30/17 23:29 23:29 11:48 WBC 17.7 H Hgb 8.9 L Hct 26.6 L Plt Count 172 INR APTT Sodium 128 L Potassium Chloride Carbon Dioxide BUN Creatinine Glucose Calcium Magnesium Total Bilirubin AST ALT Alkaline Phosphatase Troponin I 3.52 H* 2.02 H* B-Natriuretic Peptide Amylase Lipase Impressions Echocardiogram Limited Views 12/29/17 00:00 Impressions: Technically sub-optimal due to poor echocardiographic windows. LVEF 25-30%. Normal LV chamber size and wall thickness. Segmental left ventricular systolic dysfunction. Left Ventricular Wall Motion: Rest Echo Findings The apex, apical inferior, mid inferior, apical anterior, mid anterior, apical septal, mid inferior septal, apical lateral, mid anterior lateral, mid anterior septal and mid inferior lateral carmona were hypokinetic. All other wall segments showed normal motion. Findings: Study Quality * Technically sub-optimal due to poor echocardiographic windows. ECG Findings * Normal sinus rhythm. Left Ventricle * LVEF 25-30%. * Normal LV chamber size and wall thickness. * Segmental left ventricular systolic dysfunction. Right Ventricle * Normal right ventricular structure and function. Aorta * Normally sized aortic root. Pericardium * The pericardium appears normal. Echocardiogram 12/29/17 11:46 Impressions: LVEF 25-30%. Normal LV chamber size and wall thickness. Segmental left ventricular systolic dysfunction. Mild left ventricular diastolic dysfunction. Normal right ventricular size, mildly reduced function. No evidence of pulmonary hypertension. No obvious significant valvular dysfunction. Left Ventricular Wall Motion: Rest Echo Findings The apex, apical inferior, mid inferior, apical anterior, mid anterior, apical septal, mid inferior septal, apical lateral, mid anterior lateral, mid anterior septal and mid inferior lateral carmona were hypokinetic. All other wall segments showed normal motion. Findings: Study Quality * Technically sub-optimal due to poor echocardiographic windows. ECG Findings * Normal sinus rhythm. Left Ventricle * LVEF 25-30%. * Normal LV chamber size and wall thickness. * Segmental left ventricular systolic dysfunction. * Mild left ventricular diastolic dysfunction. Right Ventricle * Normal right ventricular size, mildly reduced function. Left Atrium * Mildly dilated left atrium. Right Atrium * Normal right atrial size. Aortic Valve * Aortic valve not well visualized. * No aortic regurgitation. * No aortic stenosis. Mitral Valve * Normal mitral valve structure and function. * No mitral regurgitation. * No mitral stenosis. Tricuspid Valve * Normal tricuspid valve structure and function. * Trace tricuspid regurgitation. * No evidence of pulmonary hypertension. Pulmonic Valve * Pulmonic valve not well visualized. Aorta * Normally sized aortic root. Pericardium * The pericardium appears normal. IVC * Normal IVC dimensions and inspiratory collapse. Pulmonary Artery * Pulmonary artery not well visualized. Abdomen/Pelvis CT 12/29/17 15:36 IMPRESSION: 1. Nonspecific gastric fold thickening which may relate to gastritis. No evidence of perforation or bowel obstruction. 2. Left proximal sartorius intramuscular hematoma with adjacent right proximal thigh anteromedial deep subcutaneous hematoma. There is a single small gas focus at the left anteromedial proximal thigh likely related to recent instrumentation. The findings were sent to the Radiology Results Communication Center at 5:28 pm on 12/29/2017to be communicated to a licensed caregiver. D/ / 12/29/2017 17:36:23 Hollis Michel MD / earnold Interpreting Provider: Hollis Michel MD Chest X-Ray 12/30/17 10:49 IMPRESSION: No acute process. D/ / Sj Guy MD / Sj Guy MD Interpreting Provider: Sj Guy MD Abdomen/Pelvis CT 12/30/17 23:09 IMPRESSION: Large subcutaneous/soft tissue hematoma in the proximal medial left thigh measuring approximately 11.8 x 7 x 11.3 cm in size with associated intramuscular hematoma of the left sartorius muscle and extensive surrounding subcutaneous edema. No evidence of retroperitoneal hematoma in the abdomen or pelvis. Mild nonspecific periportal edema. D/ / 12/30/2017 07:27:31 Wilfredo Ferro MD / mainor Interpreting Provider: Wilfredo Ferro MD Active Medications Acetaminophen (Tylenol) 650 mg PO Q6HR PRN PRN Reason: Mild Pain/Fever Stop: 06/30/18 15:10 Alprazolam (Xanax) 1 mg PO TID RAÚL PRN Reason: Protocol Stop: 06/30/18 15:46 Last Admin: 12/30/17 14:37 Dose: 1 mg Citalopram Hydrobromide (Celexa) 20 mg PO DAILY RAÚL Stop: 07/01/18 09:01 Last Admin: 12/30/17 08:19 Dose: 20 mg Dextrose/Water (Dextrose 50% (Syg)) 25 ml IVP AD PRN PRN Reason: Hypoglycemia Stop: 06/30/18 11:45 Furosemide (Lasix) 40 mg PO DAILY RAÚL Stop: 07/01/18 09:01 Last Admin: 12/30/17 08:19 Dose: 40 mg Glucagon (Glucagen) 1 mg IM ONCE PRN PRN Reason: Hypoglycemia Stop: 06/30/18 11:45 Glucose (Gluctose) 15 gm PO ONCE PRN PRN Reason: Hypoglycemia Stop: 06/30/18 11:45 Glucose (Gluctose) 30 gm PO ONCE PRN PRN Reason: Hypoglycemia Stop: 06/30/18 11:45 Heparin Sodium (Porcine) (Heparin Lock) 500 unit IV ONCE PRN PRN Reason: [place]ush while in RADIOLOGY Stop: 12/31/17 13:08 Heparin Sodium (Porcine) (Heparin Lock) 500 unit IV ONCE PRN PRN Reason: Port Flush while in RADIOLOGY Stop: 12/31/17 23:09 Dextrose (Dextrose 5%) 1,000 mls @ 100 mls/hr IVC .Q10H PRN PRN Reason: HYPOGLYCEMIA Stop: 06/30/18 11:45 Sodium Chloride (0.9 % Sodium Chloride) 1,000 mls @ 100 mls/hr IVC .Q10H [facility] Stop: 06/30/18 15:31 Last Admin: 12/30/17 14:40 Dose: 100 mls/hr Vancomycin HCl 1,250 mg/ (Sodium Chloride) 250 mls @ 167.007 mls/hr IVPB Q12H RAÚL PRN Reason: Protocol Stop: 07/01/18 05:01 Last Admin: 12/30/17 16:57 Dose: 167.007 mls/hr Piperacillin Sod/Tazobactam (Sod 3.375 gm/ Sodium Chloride) 100 mls @ 25 mls/ hr IVPB Q8H [facility] Stop: 07/01/18 08:01 Last Admin: 12/30/17 15:51 Dose: 25 mls/hr Insulin Human Lispro (Humalog) 0 units SQ TIDAC RAÚL PRN Reason: Protocol Stop: 06/30/18 16:31 Last Admin: 12/30/17 16:40 Dose: 6 units Insulin Human Lispro (Humalog) 0 units SQ HS [facility] PRN Reason: Protocol Stop: 06/30/18 21:01 Last Admin: 12/30/17 00:49 Dose: 7 units Levalbuterol HCl (Xopenex) 1.25 mg IH [id number] [facility] Stop: 06/30/18 22:01 Last Admin: 12/30/17 16:10 Dose: Not Given Lisinopril (Zestril) 2.5 mg PO DAILY [facility] PRN Reason: Protocol Stop: 06/30/18 13:01 Last Admin: 12/29/17 14:03 Dose: 2.5 mg Metoprolol Succinate (Toprol Xl) 25 mg PO DAILY [facility] Stop: 06/30/18 13:01 Last Admin: 12/29/17 14:03 Dose: 25 mg Morphine Sulfate (Morphine Sulfate) 2 mg IVP Q4HR PRN; Protocol PRN Reason: Severe Pain Stop: 07/01/18 12:36 Last Admin: 12/30/17 15:30 Dose: 2 mg Naloxone HCl (Narcan) 0.4 mg IVP Q2MIN PRN PRN Reason: SEE COMMENTS Stop: 06/30/18 15:10 Nitroglycerin (Nitroglycerin) 0.4 mg SL Q5MIN PRN PRN Reason: Chest Pain Stop: 06/30/18 06:36 Ondansetron HCl (Zofran) 4 mg IVP Q6HR PRN; Protocol PRN Reason: Nausea Stop: 06/30/18 12:41 Last Admin: 12/30/17 08:47 Dose: 4 mg Oxycodone/Acetaminophen (Percocet 10/325) 1 each PO Q6H PRN PRN Reason: Pain Stop: 06/30/18 11:44 Last Admin: 12/30/17 14:37 Dose: 1 each Pantoprazole Sodium (Protonix) 40 mg IVP Q12HR RAÚL Stop: 06/30/18 18:01 Last Admin: 12/30/17 05:24 Dose: 40 mg Ticagrelor (Brilinta) 90 mg PO BID RAÚL Stop: 06/30/18 21:01 Last Admin: 12/29/17 21:05 Dose: 90 mg Tiotropium [place] (Spiriva) 18 mcg IH DAILYR RAÚL Stop: 07/01/18 10:01 Last Admin: 12/30/17 11:15 Dose: 18 mcg Laboratory Tests 12/29/17 12/29/17 12/29/17 06:16 06:16 15:48 WBC Hgb 15.8 H Creatinine 1.06 Troponin I 4.47 H* 4.87 H* 12/29/17 12/29/17 12/29/17 21:31 22:07 23:29 WBC Hgb Creatinine Troponin I 3.80 H* 3.57 H* 3.52 H* 12/30/17 12/30/17 12/30/17 11:48 11:48 11:48 WBC 19.6 H Hgb 15.0 D Creatinine 1.41 H Troponin I 2.02 H* - Imaging and Cardiology Chest Xray: report reviewed Echo: report reviewed Cardiac cath: report reviewed - EKG Interpretation EKG results cardiology: other (Telemetry reviewed with average HR previous 12 hours noted to be 80, SR. PVCS and PACS noted.) Consult Discharge Plan - Plan Referrals: Alex Tapia Jr, MD [Primary Care Provider] -
--- NOTE | 2017-12-30 17:55 | Internal Med Progress Note ---
Date of Encounter: 12/30/17 Time of Encounter: 10:00 - Assessment and plan (1) Leukocytosis Current Visit: Yes Status: Acute Assessment and plan: Patient with worsening leukocytosis Chest x-ray and abdominal CT negative for infection; blood cultures pending Continue IV Zosyn and vancomycin Qualifiers: Leukocytosis type: unspecified Qualified Code(s): D72.829 - Elevated white blood cell count, unspecified (2) ACS (acute coronary syndrome) Current Visit: Yes Status: Acute Assessment and plan: Patient with elevated cardiac biomarkers on presentation with EKG changes concerning for STEMI. Cardiology consulted with recommendations for [facility] which revealed mild disease ( 30% right PDA) Recommendations to continue medical management with aspirin statin and beta florentino (3) Cardiomyopathy Current Visit: Yes Status: Acute Assessment and plan: NICMP. EF 20-25% on C. Mild CAD, 30% right PDA, otherwise angiographically free of disease. Repeat echocardiogram showed LVEF of 25-30% with segmental left ventricular systolic dysfunction. Continue beta florentino and REDDY inhibitor as above Qualifiers: Cardiomyopathy type: unspecified Qualified Code(s): I42.9 - Cardiomyopathy , unspecified (4) MARGRET (acute kidney injury) Current Visit: Yes Status: Acute Assessment and plan: Secondary to hypotension due to acute blood loss anemia as result of hematoma above Continue to monitor (5) COPD (chronic obstructive pulmonary disease) Current Visit: Yes Status: Chronic Assessment and plan: Stable; continue home meds Qualifiers: COPD type: unspecified COPD Qualified Code(s): J44.9 - Chronic obstructive pulmonary disease, unspecified (6) Type 2 diabetes mellitus Current Visit: Yes Status: Chronic Assessment and plan: Sliding scale insulin Qualifiers: Diabetes mellitus senior living insulin use: unspecified senior living insulin use status Diabetes mellitus complication status: with unspecified complications Qualified Code(s): E11.8 - Type 2 diabetes mellitus with unspecified complications - Time Spent With Patient Total time spent is greater than 50% in coordination of care (as documented) at patient's floor/unit and/or counseling patient: - Subjective Interval history: Patient with continued left leg discomfort this morning secondary to hematoma She is now hemodynamically stable status post 4 units of packed red blood cells Patient continues to have leukocytosis without fevers with unknown etiology - Constitutional Vitals: Temp Pulse Resp BP Pulse Ox 97.7 F 77 13 91/54 95 12/30/17 15:21 12/30/17 17:00 12/30/17 17:00 12/30/17 16:00 12/30/17 17:00 General appearance: Present: cooperative, mild distress (Abdominal pain, nausea) , A&O X 3, pleasant, no acute distress, answers questions appropriately - Respiratory Respiratory exam: Present: CTAB. Absent: accessory muscle use, rales, rhonchi, wheezes - Cardiovascular Cardiovascular exam: Present: RRR, +S1, +S2. Absent: diastolic murmur, gallop, rubs, systolic murmur - Expanded Lower Extremities Exam Upper Leg exam: Present: swelling (Left thigh edema and tenderness secondary to hematoma) Internal Medicine: Result - Labs CBC & Chem 7: 12/30/17 16:53 12/30/17 11:48 Labs: Short CBC 12/29/17 12/29/17 12/30/17 Range/Units 22:07 23:29 11:48 WBC 15.3 H 17.7 H 19.6 H (4.3-11.1) K/mcL Hgb 9.2 L D 8.9 L 15.0 D (11.5-15.4) g/dL Hct 27.1 L 26.6 L 44.5 (35.3-44.9) % Plt Count 225 172 222 (140-400) K/mcL Neutrophils # 13.0 H 15.0 H 16.0 H (1.6-8.9) K/mcL 12/30/17 Range/Units 16:53 WBC (4.3-11.1) K/mcL Hgb 13.1 D (11.5-15.4) g/dL Hct 38.5 (35.3-44.9) % Plt Count (140-400) K/mcL Neutrophils # (1.6-8.9) K/mcL BMP 12/29/17 12/30/17 23:29 11:48 Sodium 128 L 131 L Potassium 4.2 Chloride 101 Carbon Dioxide 23 BUN 43 H Creatinine 1.41 H Glucose 169 H Calcium 8.5 L Cardiac Enzymes 12/29/17 12/29/17 12/29/17 Range/Units 21:31 22:07 23:29 Troponin I 3.80 H* 3.57 H* 3.52 H* (< 0.04) ng/mL 12/30/17 Range/Units 11:48 Troponin I 2.02 H* (< 0.04) ng/mL Liver Function 12/30/17 Range/Units 11:48 Total Bilirubin 0.7 (0.3-1.0) mg/dL AST 16 (13-39) Units/L ALT 8 (7-52) Units/L Alkaline Phosphatase 60 (34-104) Units/L Albumin 3.4 L (3.5-5.7) g/dL Urine 12/29/17 Range/Units 17:40 Urine Color Yellow (Yellow) Urine Clarity Clear (Clear) Urine pH 5.5 (5.0-8.0) pH Units Ur Specific [place] > 1.030 H (1.010-1.025) Urine Protein >=1000 H (Neg-Trace) mg/dL Urine Glucose (UA) 250 H (Normal) mg/dL - ABG Interpretation ABG results: PT/INR, D-dimer PT 11.6 Seconds (9.4-12.1) 12/30/17 11:48 - Impressions Impressions Echocardiogram 12/29/17 11:46 Impressions: LVEF 25-30%. Normal LV chamber size and wall thickness. Segmental left ventricular systolic dysfunction. Mild left ventricular diastolic dysfunction. Normal right ventricular size, mildly reduced function. No evidence of pulmonary hypertension. No obvious significant valvular dysfunction. Left Ventricular Wall Motion: Rest Echo Findings The apex, apical inferior, mid inferior, apical anterior, mid anterior, apical septal, mid inferior septal, apical lateral, mid anterior lateral, mid anterior septal and mid inferior lateral carmona were hypokinetic. All other wall segments showed normal motion. Findings: Study Quality * Technically sub-optimal due to poor echocardiographic windows. ECG Findings * Normal sinus rhythm. Left Ventricle * LVEF 25-30%. * Normal LV chamber size and wall thickness. * Segmental left ventricular systolic dysfunction. * Mild left ventricular diastolic dysfunction. Right Ventricle * Normal right ventricular size, mildly reduced function. Left Atrium * Mildly dilated left atrium. Right Atrium * Normal right atrial size. Aortic Valve * Aortic valve not well visualized. * No aortic regurgitation. * No aortic stenosis. Mitral Valve * Normal mitral valve structure and function. * No mitral regurgitation. * No mitral stenosis. Tricuspid Valve * Normal tricuspid valve structure and function. * Trace tricuspid regurgitation. * No evidence of pulmonary hypertension. Pulmonic Valve * Pulmonic valve not well visualized. Aorta * Normally sized aortic root. Pericardium * The pericardium appears normal. IVC * Normal IVC dimensions and inspiratory collapse. Pulmonary Artery * Pulmonary artery not well visualized. Abdomen/Pelvis CT 12/29/17 15:36 IMPRESSION: 1. Nonspecific gastric fold thickening which may relate to gastritis. No evidence of perforation or bowel obstruction. 2. Left proximal sartorius intramuscular hematoma with adjacent right proximal thigh anteromedial deep subcutaneous hematoma. There is a single small gas focus at the left anteromedial proximal thigh likely related to recent instrumentation. The findings were sent to the Radiology Results Communication Center at 5:28 pm on 12/29/2017to be communicated to a licensed caregiver. D/ / 12/29/2017 17:36:23 Hollis Michel MD / stefanie Interpreting Provider: Hollis Michel MD Chest X-Ray 12/30/17 10:49 IMPRESSION: No acute process. D/ / Sj Guy MD / Sj Guy MD Interpreting Provider: Sj Guy MD Abdomen/Pelvis CT 12/30/17 23:09 IMPRESSION: Large subcutaneous/soft tissue hematoma in the proximal medial left thigh measuring approximately 11.8 x 7 x 11.3 cm in size with associated intramuscular hematoma of the left sartorius muscle and extensive surrounding subcutaneous edema. No evidence of retroperitoneal hematoma in the abdomen or pelvis. Mild nonspecific periportal edema. D/ / 12/30/2017 07:27:31 Wilfredo Ferro MD / mainor Interpreting Provider: Wilfredo Ferro MD Consult Discharge Plan - Plan Referrals: Alex Tapia Jr, MD [Primary Care Provider] -
--- NOTE | 2017-12-30 19:24 | Electrocardiograph Report ---
[address] [place], [place] [address] Test Date: 2017-12-29 Pat Name: Shantal Gomez Department: 112 Room: [facility] Gender: F Drip Molder: : [id number] Requested By: [id number] Order Number: [id number] Reading MD: Yessy Meek Measurements Intervals Watson Rate: 94 P: 46 IN: 141 QRS: 19 QRSD: 105 T: 233 QT: 389 QTc: 441 Interpretive Statements SINUS RHYTHM MODERATE T-WAVE ABNORMALITY, CONSIDER ANTEROLATERAL ISCHEMIA MODERATE T-WAVE ABNORMALITY, CONSIDER INFERIOR ISCHEMIA Electronically Signed On 12-30-2017 19:22:35 EDT by Yessy Meek
[2017-12-30 21:01] LABS: Hematocrit 35.7 % (35.3-44.9); Hemoglobin 12.3 g/dL (11.5-15.4)
[2017-12-31] MEDS: Levalbuterol Neb 1.25 MG/3 ML IH SCH ×4 (03:32→22:02)
[2017-12-31] MEDS: *HR* Morphine 2 MG/ML SYRINGE IVP PRN ×2 (04:36→08:56)
[2017-12-31 04:43] LABS: Basophils # 0.1 K/mcL (0.0-0.2); Basophils % 0.5 %; Hematocrit 36.8 % (35.3-44.9); Hemoglobin 12.2 g/dL (11.5-15.4); Immature Granulocytes % 0.7 % (0-4); Lymphocytes # 2.1 K/mcL (0.6-4.6); Lymphocytes % 16.5 %; Mean Corpuscular HGB Conc 33.2 g/dL (31.6-35.5); Mean Corpuscular Hemoglobin 27.2 pg (28.0-33.3); Mean Corpuscular Volume 82.1 fL (83.0-100.0); Mean Platelet Volume 9.4 fL (9.4-12.4); Monocytes # 0.8 K/mcL (0.0-1.3); Neutrophils # 9.8 K/mcL (1.6-8.9); Nucleated Red Blood Cells 0.2 /100 WBC (0); Platelet Count 173 K/mcL (140-400); Red Blood Count 4.48 M/mcL (3.82-4.97); Red Cell Distribution Width 16.7 % (11.5-14.5); Segmented Neutrophils % 76.3 %
[2017-12-31 05:02] LABS: Albumin 2.8 g/dL (3.5-5.7); Albumin/Globulin Ratio 1.2 (1.1-2.2); Bilirubin,Total 0.6 mg/dL (0.3-1.0); Calcium 7.7 mg/dL (8.6-10.3); Globulin 2.4 g/dL (2.4-3.5); Potassium 4.6 mEq/L (3.5-5.1); Total Protein 5.2 g/dL (6.4-8.9)
[2017-12-31] MEDS: Pantoprazole 40 MG VIAL IVP SCH ×2 (05:06→18:04)
[2017-12-31] MEDS: *HR* OxyCODONE/APAP 10/325 TABLET PO PRN ×4 (05:44→23:59)
[2017-12-31] MEDS: 0.9 % Sodium Chloride 1,000 ML IVC SCH ×3 (05:44→21:15)
[2017-12-31] MEDS: Insulin LISPRO 300 UNITS/3 ML VIAL SQ SCH ×4 (07:35→21:16)
[2017-12-31] MEDS: ALPRAZolam 1 MG TABLET PO SCH ×4 (07:37→21:16)
[2017-12-31] MEDS: Piperacillin/Tazobactam 3.375 GM in 0.9 % Sodium Chloride Mini Bag 100 ML IVPB SCH (07:37)
--- NOTE | 2017-12-31 07:49 | Pulmonology Consult Note ---
<Blue Valdez M - Last Filed: 12/31/17 08:43> Date of Encounter: 12/31/17 Medications and Allergies Alprazolam [Xanax] 1 mg PO TID PRN 06/26/15 [History] Citalopram [CeleXA] 20 mg PO DAILY 06/26/15 [History] Furosemide [Lasix] 40 mg PO DAILY 06/26/15 [History] Insulin LISPRO [HumaLOG] 5 units SQ TIDWM 06/26/15 [History] Omeprazole [PriLOSEC] 40 mg PO DAILY 06/26/15 [History] Tiotropium [Spiriva] 1 puff IH DAILY 06/26/15 [History] Aspirin 81 mg PO DAILY 02/06/16 [History] Oxycodone HCl/Acetaminophen [Percocet 10-325 mg Tablet] 1 tab PO Q6H PRN [History] 3 Allergy/AdvReac Type Severity Reaction Status Date / Time Procaine [From Novocain] Allergy Difficulty Verified 12/29/17 06:06 Breathing, SWELLING All Systems: The remainder of the systems were reviewed and are negative Physical Examination Vital Signs: Vital Signs, Last 4 Hours Temp Pulse Resp BP Pulse Ox 12/31/17 08:20 97.5 F L 12/31/17 08:00 81 18 111/58 93 12/31/17 07:30 74 12/31/17 07:00 74 18 103/60 91 12/31/17 06:00 75 19 127/71 92 12/31/17 05:00 73 18 113/67 94 Results - Laboratory Findings CBC and BMP: 12/31/17 04:26 12/31/17 04:26 PT/INR, D-dimer PT 11.6 Seconds (9.4-12.1) 12/30/17 11:48 Abnormal lab findings: Abnormal lab results WBC 12.9 K/mcL (4.3-11.1) H 12/31/17 04:26 MCV 82.1 fL (83.0-100.0) L 12/31/17 04:26 MCH 27.2 pg (28.0-33.3) L 12/31/17 04:26 RDW 16.7 % (11.5-14.5) H 12/31/17 04:26 Neutrophils # 9.8 K/mcL (1.6-8.9) H 12/31/17 04:26 Nucleated RBCs/100 WBC 0.2 /100 WBC (0) H 12/31/17 04:26 APTT 24.7 Seconds (26.0-36.0) L 12/30/17 11:48 Sodium 128 mEq/L (136-145) L 12/31/17 04:26 Carbon Dioxide 22 mEq/L (23-29) L 12/31/17 04:26 BUN 41 mg/dL (6-20) H 12/31/17 04:26 Creatinine 1.52 mg/dL (0.60-1.20) H 12/31/17 04:26 Est GFR ( Amer) 43 (> 60) L 12/31/17 04:26 Est GFR (Non-Af Amer) 36 (> 60) L 12/31/17 04:26 BUN/Creatinine Ratio 27 (6-26) H 12/31/17 04:26 Glucose 175 mg/dL (70-105) H 12/31/17 04:26 POC Glucose 190 mg/dL (70-99) H 12/31/17 07:34 Hemoglobin A1c 6.8 % (-5.6) H 12/30/17 11:48 Calcium 7.7 mg/dL (8.6-10.3) L 12/31/17 04:26 ALT 5 Units/L (7-52) L 12/31/17 04:26 Troponin I 2.02 ng/mL (< 0.04) H* 12/30/17 11:48 B-Natriuretic Peptide 4323 pg/mL (Less than 100) H 12/29/17 22:07 Serum Total Protein 5.2 g/dL (6.4-8.9) L 12/31/17 04:26 Albumin 2.8 g/dL (3.5-5.7) L 12/31/17 04:26 Amylase 16 Units/L (29-103) L 12/30/17 11:48 Lipase 5 Units/L (11-82) L 12/30/17 11:48 Ur Specific [place] > 1.030 (1.010-1.025) H 12/29/17 17:40 Urine Protein >=1000 mg/dL (Neg-Trace) H 12/29/17 17:40 Urine Glucose (UA) 250 mg/dL (Normal) H 12/29/17 17:40 Urine Ketones Trace mg/dL (Negative) H 12/29/17 17:40 Urine Blood Trace (Negative) H 12/29/17 17:40 Amorphous Sediment Moderate (Few) H 12/29/17 06:08 Hyaline Casts Moderate per lpf (None-Few) H 12/29/17 06:08 Urine Yeast Few per hpf (None Seen) H 12/29/17 17:40 Vancomycin Trough 36 mcg/mL (5-10) H 12/31/17 04:26 - Microbiology Findings Microbiology Findings: Microbiology, Last 48 Hours 12/29/17 15:48 Blood Culture - Preliminary Peripheral Venipuncture No growth. 12/29/17 15:48 Blood Culture - Preliminary Peripheral Venipuncture No growth. - Clinical Findings Intake & Output: Intake & Output 12/30/17 12/31/17 12/31/17 23:59 07:59 15:59 Intake Total 1550 / 1550 1200 / 1200 332 / 332 Output Total 200 / 200 600 / 600 Balance 1350 / 1350 600 / 600 332 / 332 Weight 82 kg Consult Discharge Plan - Plan Referrals: Alex Tapia Jr, MD [Primary Care Provider] - - Attending Attestation I examined this patient and my medical decision-making was reviewed with the Resident Physician. I agree with the documented findings, disposition and treatment plan as described except to the extent set forth below. Patient seen and examined. Labs, radiology, chart personally reviewed. Agree with resident's history and physical, assessment, plan with following comments: SALVAGE CLERK: Patient follows commands, Pulmonary: Acceptable oxygenation and ventilation Cardiovascular: stable and there is no evidence of bleeding. Patient can be transferred to the floor. GI: Nutrition per dietary and GI prophylaxis per routine. Patient to start oral diet and IV fluid can be stopped. Heme: DVT prophylaxis per routine ID: Continue antibiotics and plan to de-escalation Renal; urine out put and renal funtion reviewed Endorcine: blood glucose is monitored Lines: all lines checked and no evidence of infections Skin: skin care to prevent pressure ulcers per nursing routine care Thank you for the consultation and please call for any questions. <Jose Villalobos - Last Filed: 12/31/17 09:24> Date of Encounter: 12/31/17 Time of Encounter: 09:03 Assessment and Plan (1) ST elevation (STEMI) myocardial infarction Current Visit: Yes Status: Acute Initial EKG on 12/29/[address] elevations in leads V1 and V2. LHC with 30% right PDA, angiographically free of disease an additional arteries. Cardiology following. Continue aspirin. Qualifiers: Involved coronary artery: unspecified coronary artery Qualified Code(s): I21.3 - ST elevation (STEMI) myocardial infarction of unspecified site (2) Cardiomyopathy Current Visit: Yes Status: Acute LVEF 25-30%. Normal LV chamber size and wall thickness. Segmental left ventricular systolic dysfunction. Mild left ventricular diastolic dysfunction. Normal right ventricular size, mildly reduced function. No evidence of pulmonary hypertension. No obvious significant valvular dysfunction. Qualifiers: Cardiomyopathy type: unspecified Qualified Code(s): I42.9 - Cardiomyopathy , unspecified (3) CHF (congestive heart failure) Current Visit: Yes Status: Chronic Echo 20-25%. Cardiology consulted. Lasix held. Qualifiers: Heart failure type: unspecified Heart failure chronicity: chronic Qualified Code(s): I50.9 - Heart failure, unspecified (4) COPD (chronic obstructive pulmonary disease) Current Visit: Yes Status: Chronic Continuous pulse oximetry. Xopenex as needed. Nasal cannula supplementation as needed. Qualifiers: COPD type: unspecified COPD Qualified Code(s): J44.9 - Chronic obstructive pulmonary disease, unspecified (5) Diabetes Current Visit: Yes Status: Chronic sliding-scale insulin coverage Qualifiers: Diabetes mellitus type: type 2 Diabetes mellitus senior svp insulin use: unspecified long-term insulin use status Diabetes mellitus complication status : with unspecified complications Qualified Code(s): E11.8 - Type 2 diabetes mellitus with unspecified complications (6) Hx-TIA (transient ischemic attack) Current Visit: Yes Status: Chronic Continue aspirin. (7) Elevated troponin Current Visit: Yes Status: Resolved Troponin elevation up to 4.87. Continue downtrending. Left heart catheterization 12/29 without stent placement. Cardiology consulted. (8) Hematoma Current Visit: Yes Status: Acute Left thigh hematoma status post catheterization. Bleeding with acute blood loss anemia requiring transfusion. Bleeding has resolved. Vascular surgery was consulted, appreciate recommendations. (9) Leukocytosis Current Visit: Yes Status: Acute Improving, previously 19.6, now 12.9. Afebrile. No obvious source. Suggest multifactorial from stress response of recent procedure as well as blood product administration. Daily CBC. Qualifiers: Leukocytosis type: unspecified Qualified Code(s): D72.829 - Elevated white blood cell count, unspecified (10) DVT prophylaxis Current Visit: Yes Status: Acute History of Present Illness Consult date: 12/30/17 Requesting physician: Beni Larios Reason for consult: other (Leukocytosis, anemia) Chief complaint: Hematoma History of present illness: 57-year-old female with a past medical history of COPD, CHF, diabetes, TIA who initially presented to the hospital on 12/29/17 with 1 day of abdominal pain in the epigastric area as well as nausea and vomiting. Upon arrival the patient was noted to have EKG changes concerning for STEMI. She was taken emergently by interventional cardiology for catheterization. Of note her left heart catheterization revealed at worst a 30% stenosis. She was noted to have an ejection fraction of 20-25%. The patient was then admitted for further evaluation. During her hospitalization the patient developed a hematoma and bleeding from her puncture site. She was transferred to the intensive care unit for close hemodynamic monitoring and received multiple units of red blood cells. Vascular surgery was consulted as well. She remained hemodynamically stable since the bleeding. Bulb Brander was consulted given her anemia as well as leukocytosis of unknown etiology. Patient seen and examined at bedside today. She is sitting up in a chair in no distress. Reports some discomfort to her left leg which she says has been there since the puncture but she also thinks might be from all the pressure people had to apply to her leg. She voices no new complaints. Past Med Surg Social Fam HX - Past Medical History Attestation: Yes The following information was validated with the patient. Source: patient Medical history: CHF, COPD, diabetes, TIA (One year ago) Psychiatric history: anxiety, depression - Past Surgical History Surgical History: other - Social History Smoking Status: Current every day smoker Packs per day: 1 PPD Smokeless Tobacco Status: No Alcohol use: none Drug use: marijuana - Family History Father Race: Family Member Ethnicity: Non- Living Status: Age at : 69 Cause of : MRSA Hx Family Cardiac Disorders: Yes (Quad bypass, HTN, HLD) Mother Race: Family Member Ethnicity: Non- Living Status: Still Living Hx Family Cardiac Disorders: Yes (Afib) Brother Race: Family Member Ethnicity: Non- Living Status: Still Living Hx Family Medical Disorders: No All Systems: The remainder of the systems were reviewed and are negative - Constitutional Constitutional: as per HPI - EENT Eyes: as per HPI Ears: as per HPI Nose, mouth and throat: as per HPI - Cardiovascular Cardiovascular: as per HPI - Respiratory Respiratory: as per HPI - Gastrointestinal Gastrointestinal: as per HPI - Genitourinary Genitourinary: as per HPI - Integumentary Integumentary: as per HPI - Neurological Neurological: as per HPI - Psychiatric Psychiatric: as per HPI - Endocrine Endocrine: as per HPI - Hematologic/Lymphatic Hematologic/Lymphatic: as per HPI - Allergic/Immunologic Allergic/Immunologic: as per HPI Physical Examination Vital Signs: Vital Signs, Last 4 Hours Pulse Resp BP Pulse Ox 12/31/17 07:00 74 18 103/60 91 12/31/17 06:00 75 19 127/71 92 12/31/17 05:00 73 18 113/67 94 12/31/17 04:02 73 18 109/62 93 General appearance: no acute distress Eyes: nonicteric ENT: oropharynx moist Effort: normal Inspection: normal Auscultation: bilateral: clear Cardiovascular: regular rate and rhythm Gastrointestinal: soft, non-tender, non-distended Integumentary: normal Extremities: no cyanosis, no edema, other (Left proximal thigh hematoma within the border of prior demarcation. No obvious bleeding.) Musculoskeletal: no deformities normal mental status mood appropriate Results - Laboratory Findings CBC and BMP: 12/31/17 04:26 12/31/17 04:26 PT/INR, D-dimer PT 11.6 Seconds (9.4-12.1) 12/30/17 11:48 Abnormal lab findings: Abnormal lab results WBC 12.9 K/mcL (4.3-11.1) H 12/31/17 04:26 MCV 82.1 fL (83.0-100.0) L 12/31/17 04:26 MCH 27.2 pg (28.0-33.3) L 12/31/17 04:26 RDW 16.7 % (11.5-14.5) H 12/31/17 04:26 Neutrophils # 9.8 K/mcL (1.6-8.9) H 12/31/17 04:26 Nucleated RBCs/100 WBC 0.2 /100 WBC (0) H 12/31/17 04:26 APTT 24.7 Seconds (26.0-36.0) L 12/30/17 11:48 Sodium 128 mEq/L (136-145) L 12/31/17 04:26 Carbon Dioxide 22 mEq/L (23-29) L 12/31/17 04:26 BUN 41 mg/dL (6-20) H 12/31/17 04:26 Creatinine 1.52 mg/dL (0.60-1.20) H 12/31/17 04:26 Est GFR ( Amer) 43 (> 60) L 12/31/17 04:26 Est GFR (Non-Af Amer) 36 (> 60) L 12/31/17 04:26 BUN/Creatinine Ratio 27 (6-26) H 12/31/17 04:26 Glucose 175 mg/dL (70-105) H 12/31/17 04:26 POC Glucose 190 mg/dL (70-99) H 12/31/17 07:34 Hemoglobin A1c 6.8 % (-5.6) H 12/30/17 11:48 Calcium 7.7 mg/dL (8.6-10.3) L 12/31/17 04:26 ALT 5 Units/L (7-52) L 12/31/17 04:26 Troponin I 2.02 ng/mL (< 0.04) H* 12/30/17 11:48 B-Natriuretic Peptide 4323 pg/mL (Less than 100) H 12/29/17 22:07 Serum Total Protein 5.2 g/dL (6.4-8.9) L 12/31/17 04:26 Albumin 2.8 g/dL (3.5-5.7) L 12/31/17 04:26 Amylase 16 Units/L (29-103) L 12/30/17 11:48 Lipase 5 Units/L (11-82) L 12/30/17 11:48 Ur Specific [place] > 1.030 (1.010-1.025) H 12/29/17 17:40 Urine Protein >=1000 mg/dL (Neg-Trace) H 12/29/17 17:40 Urine Glucose (UA) 250 mg/dL (Normal) H 12/29/17 17:40 Urine Ketones Trace mg/dL (Negative) H 12/29/17 17:40 Urine Blood Trace (Negative) H 12/29/17 17:40 Amorphous Sediment Moderate (Few) H 12/29/17 06:08 Hyaline Casts Moderate per lpf (None-Few) H 12/29/17 06:08 Urine Yeast Few per hpf (None Seen) H 12/29/17 17:40 Vancomycin Trough 36 mcg/mL (5-10) H 12/31/17 04:26 - Clinical Findings Intake & Output: Intake & Output 12/30/17 12/30/17 12/31/17 15:59 23:59 07:59 Intake Total 1080 / 1080 1550 / 1550 1200 / 1200 Output Total 750 / 750 200 / 200 600 / 600 Balance 330 / 330 1350 / 1350 600 / 600 Weight 82 kg
[2017-12-31] MEDS ORDERED: Aminoglycoside Consult 1 EACH MC ONE (07:55)
[2017-12-31] MEDS ORDERED: Ondansetron 4 MG/2 ML VIAL IVP PRN (08:58)
[2017-12-31] MEDS ORDERED: D5% in Water 1,000 ML IVC PRN (08:58)
[2017-12-31] MEDS ORDERED: *HR* Morphine 2 MG/ML SYRINGE IVP PRN (08:58)
[2017-12-31] MEDS ORDERED: Nitroglycerin 0.4 MG TAB.SUBL SL PRN (08:58)
[2017-12-31] MEDS ORDERED: Naloxone 0.4 MG/ML INJ IVP PRN (08:58)
[2017-12-31] MEDS ORDERED: *HR* Dextrose 50 % in Water (Syg) 50 ML SYRINGE IVP PRN (08:58)
[2017-12-31] MEDS ORDERED: Dextrose Gel 15 GM/37.5 ML TUBE PO PRN ×2 (08:58)
[2017-12-31] MEDS ORDERED: Acetaminophen 325 MG TABLET PO PRN (08:58)
[2017-12-31] MEDS: Tiotropium 18 MCG inhalation IH SCH (10:15)
--- NOTE | 2017-12-31 12:59 | Cardiology Progress Note ---
Date of Encounter: 12/31/17 Time of Encounter: 12:00 Assessment and Plan (1) Non-STEMI (non-ST elevated myocardial infarction) Current Visit: Yes Status: Acute Currently stable with no recurrent chest discomfort. Peak troponin 4.87. Cardiac catheterization demonstrated minimal nonobstructive CAD in R PDA, all other coronary arteries angiographically normal. EF 20-25%. Continue medical therapy. Restart antiplatelets- Plavix. Low dose beta blockade- will start carvedilol 3.125mg BID and advance as BP tolerates. (2) Nonischemic cardiomyopathy Current Visit: Yes Status: Acute Will restart low dose carvedilol and advance as BP tolerates. Will add lisinopril if BP tolerates. Await improvement of Cr. Will need reassessment of LV function in 3 months with echocardiogram. No arrhythmias noted on telemetry. (3) Coronary artery disease Current Visit: Yes Status: Acute Minimal nonobstructive CAD of R PDA- 30%. Rest of coronaries angiographically nl. Qualifiers: Coronary Disease-Associated Artery/Lesion type: [place] artery [place] vs. transplanted heart: [place] heart Associated angina: without angina Qualified Code(s): I25.10 - Atherosclerotic heart disease of [place] coronary artery without angina pectoris (4) Acute systolic CHF (congestive heart failure), NYHA class 3 Current Visit: Yes Status: Acute Gentle diuresis. Carvedilol/add REDDY-I as tolerated. (5) Hematoma Current Visit: Yes Status: Acute Stable. Hb stable. Discussion w patient/family: The assessment and plan as outlined above was discussed with the patient and/or family members who expressed understanding and agreement. All questions were answered. Thank you for involving us in the care of your patient. Please call with any questions. Subjective Principal diagnosis: ACS Interval history: Pt feels improved today. Denies CP. Mild SOB. Feels better than has in several weeks. L groin pain discomfort with palpation only. Objective Vital Signs, Last 4 Hours Temp Pulse Resp BP Pulse Ox 12/31/17 12:00 98.6 F 12/31/17 11:00 74 18 122/63 92 12/31/17 10:16 18 93 General: Conversant, No Apparent Distress HEENT: Atraumatic, Normocephaly, Mucus Membranes Moist Neck: No JVD, Normal carotid pulses Cardiac: Reg Rate and Rhythm, Normal S1 and S2, No Murmur Lungs: Normal Breath Sounds, No Wheeze, Rales, Rhonchi Neuro: Alert and responsive, No focal deficits noted Abdomen: Soft, Non-Tender Skin: No rashes noted on visualized skin Musculoskeletal: No Chest Wall Tenderness Extremities: No Clubbing, No Cyanosis, No Edema, Normal Pulses, Other (L thigh hematoma moderately tender; no thrill/bruit L femoral artery) Results 12/31/17 04:26 12/31/17 04:26 Lab Results 12/30/17 12/30/17 12/31/17 16:53 20:42 04:26 WBC 12.9 H Hgb 13.1 D 12.3 12.2 Hct 38.5 35.7 36.8 Plt Count 173 Sodium Potassium Chloride Carbon Dioxide BUN Creatinine Glucose Calcium Total Bilirubin AST ALT Alkaline Phosphatase 12/31/17 04:26 WBC Hgb Hct Plt Count Sodium 128 L Potassium 4.6 Chloride 104 Carbon Dioxide 22 L BUN 41 H Creatinine 1.52 H Glucose 175 H Calcium 7.7 L Total Bilirubin 0.6 AST 13 ALT 5 L Alkaline Phosphatase 47 Consult Discharge Plan - Plan Referrals: Alex Tapia Jr, MD [Primary Care Provider] -
--- NOTE | 2017-12-31 13:50 | Vascular/[facility] Progress Note ---
Date of Encounter: 12/31/17 Time of Encounter: 13:48 - Assessment and plan (1) Hematoma Current Visit: Yes Status: Acute Stable thigh hematoma. No intervention needed. - Subjective Interval history: Pain in left thigh slowly improving. Vital Signs, Last 4 Hours Temp Pulse Resp BP Pulse Ox 12/31/17 13:44 98.2 F 82 16 94/50 99 12/31/17 12:00 98.6 F 12/31/17 11:00 74 18 122/63 92 12/31/17 10:16 18 93 - Physical Examination General: Present: Conversant, No Apparent Distress Neuro: Present: Alert and responsive Vascular: Present: Normal capillary refill, Pulse, normal Skin: Present: Other (Left thigh with hematoma, unchanged since yesterday. Thigh soft, no evidence of femoral nerve palsy) Results 12/31/17 04:26 12/31/17 04:26 Lab Results, Last 24 hours 12/30/17 12/30/17 12/31/17 16:53 20:42 04:26 WBC 12.9 H Hgb 13.1 D 12.3 12.2 Hct 38.5 35.7 36.8 Plt Count 173 Sodium Potassium Chloride Carbon Dioxide BUN Creatinine Glucose Calcium Total Bilirubin AST ALT Alkaline Phosphatase 12/31/17 04:26 WBC Hgb Hct Plt Count Sodium 128 L Potassium 4.6 Chloride 104 Carbon Dioxide 22 L BUN 41 H Creatinine 1.52 H Glucose 175 H Calcium 7.7 L Total Bilirubin 0.6 AST 13 ALT 5 L Alkaline Phosphatase 47 Consult Discharge Plan - Plan Referrals: Alex Tapia Jr, MD [Primary Care Provider] -
--- NOTE | 2017-12-31 14:37 | Internal Med Progress Note ---
Date of Encounter: 12/31/17 Time of Encounter: 10:00 - Assessment and plan (1) Hematoma Current Visit: Yes Status: Acute Assessment and plan: Patient developed hematoma status post [facility] CT scan showed large subcutaneous/soft tissue hematoma in the proximal medial left thigh measuring approximately 11.8 x 7 x 11.3 cm in size with associated intramuscular hematoma of the left sartorius muscle and extensive surrounding subcutaneous edema. Patient experienced acute on chronic anemia secondary to hematoma and received her units of packed red blood cells She has now achieve hemostasis and is hemodynamic stable Vascular surgery following an appreciate any further recommendations. (2) ACS (acute coronary syndrome) Current Visit: Yes Status: Acute Assessment and plan: Patient with elevated cardiac biomarkers on presentation with EKG changes concerning for STEMI. Cardiology consulted with recommendations for [facility] which revealed mild disease ( 30% right PDA) Recommendations to continue medical management with aspirin statin and beta florentino (3) Cardiomyopathy Current Visit: Yes Status: Acute Assessment and plan: NICMP. EF 20-25% on [facility]. Mild CAD, 30% right PDA, otherwise angiographically free of disease. Repeat echocardiogram showed LVEF of 25-30% with segmental left ventricular systolic dysfunction. Continue beta florentino and REDDY inhibitor as above Qualifiers: Cardiomyopathy type: unspecified Qualified Code(s): I42.9 - Cardiomyopathy , unspecified (4) Leukocytosis Current Visit: Yes Status: Acute Assessment and plan: Patient with resolving leukocytosis without any source of infection. Chest x-ray and abdominal CT negative for infection; blood cultures without any growth to date Suspect stress-induced and therefore will discontinue IV Zosyn and vancomycin Will continue to monitor Qualifiers: Leukocytosis type: unspecified Qualified Code(s): D72.829 - Elevated white blood cell count, unspecified (5) MARGRET (acute kidney injury) Current Visit: Yes Status: Acute Assessment and plan: Secondary to hypotension due to acute blood loss anemia as result of hematoma above Continue to monitor (6) COPD (chronic obstructive pulmonary disease) Current Visit: Yes Status: Chronic Assessment and plan: Stable; continue home meds Qualifiers: COPD type: unspecified COPD Qualified Code(s): J44.9 - Chronic obstructive pulmonary disease, unspecified (7) Type 2 diabetes mellitus Current Visit: Yes Status: Chronic Assessment and plan: Controlled; continue sliding scale insulin Qualifiers: Diabetes mellitus watermelon inspector insulin use: unspecified watermelon inspector insulin use status Diabetes mellitus complication status: with unspecified complications Qualified Code(s): E11.8 - Type 2 diabetes mellitus with unspecified complications - Time Spent With Patient Total time spent is greater than 50% in coordination of care (as documented) at patient's floor/unit and/or counseling patient: - Subjective Interval history: Patient with hemostasis of left thigh hematoma status post LHC; hemodynamically stable Patient reporting of decreased left thigh discomfort Leukocytosis also resolving Patient transferred from ICU to medical floor this morning - Constitutional Vitals: Temp Pulse Resp BP Pulse Ox 98.2 F 82 16 94/50 99 12/31/17 13:44 12/31/17 13:44 12/31/17 13:44 12/31/17 13:44 12/31/17 13:44 General appearance: Present: cooperative, mild distress (Abdominal pain, nausea) , A&O X 3, pleasant, no acute distress, answers questions appropriately - Respiratory Respiratory exam: Present: CTAB. Absent: accessory muscle use, rales, rhonchi, wheezes - Cardiovascular Cardiovascular exam: Present: RRR, +S1, +S2. Absent: diastolic murmur, gallop, rubs, systolic murmur - Expanded Lower Extremities Exam Upper Leg exam: Present: swelling, tenderness (Decreased swelling and tenderness to left thigh) Internal Medicine: Result - Labs CBC & Chem 7: 12/31/17 04:26 12/31/17 04:26 Labs: Short CBC 12/30/17 12/30/17 12/31/17 Range/Units 16:53 20:42 04:26 WBC 12.9 H (4.3-11.1) K/mcL Hgb 13.1 D 12.3 12.2 (11.5-15.4) g/dL Hct 38.5 35.7 36.8 (35.3-44.9) % Plt Count 173 (140-400) K/mcL Neutrophils # 9.8 H (1.6-8.9) K/mcL BMP 12/31/17 04:26 Sodium 128 L Potassium 4.6 Chloride 104 Carbon Dioxide 22 L BUN 41 H Creatinine 1.52 H Glucose 175 H Calcium 7.7 L Liver Function 12/31/17 Range/Units 04:26 Total Bilirubin 0.6 (0.3-1.0) mg/dL AST 13 (13-39) Units/L ALT 5 L (7-52) Units/L Alkaline Phosphatase 47 (34-104) Units/L Albumin 2.8 L (3.5-5.7) g/dL - ABG Interpretation ABG results: PT/INR, D-dimer PT 11.6 Seconds (9.4-12.1) 12/30/17 11:48 Consult Discharge Plan - Plan Referrals: Alex Tapia Jr, MD [Primary Care Provider] -
[2017-12-31] MEDS ORDERED: Piperacillin/Tazobactam 3.375 GM in 0.9 % Sodium Chloride Mini Bag 100 ML IVPB SCH (16:00)
--- NOTE | 2017-12-31 16:50 | Electrocardiograph Report ---
[place] [id number] Test Date: 2017-12-29 Pat Name: Shantal Gomez Department: 103 Room: 3B38 Gender: F Service Administrator: YOSVANY : [id number] Requested By: Charly Ortiz Order Number: [id number] Reading MD: Yessy Meek Measurements Intervals [place] Rate: 116 P: 73 PA: 147 QRS: -26 QRSD: 110 T: 208 QT: 346 QTc: 415 Interpretive Statements SINUS TACHYCARDIA MODERATE INTRAVENTRICULAR CONDUCTION DELAY [105+ ms QRS DURATION, 80+ ms Q/S IN V1/V2, NO Q AND 60+ ms R IN I/aVL/V5/V6] ST DEVIATION AND MODERATE T-WAVE ABNORMALITY, CONSIDER ANTEROLATERAL ISCHEMIA [- 0.1+ mV T WAVE IN V3-V6] ST DEVIATION AND MODERATE T-WAVE ABNORMALITY, CONSIDER INFERIOR ISCHEMIA [-0.1+ mV T WAVE IN II/aVF] Electronically Signed On 12-31-2017 16:48:57 EDT by Yessy Meek
[2018-01-01] MEDS: Levalbuterol Neb 1.25 MG/3 ML IH SCH ×4 (04:16→21:08)
[2018-01-01 04:26] LABS: Basophils # 0.1 K/mcL (0.0-0.2); Basophils % 0.5 %; Hematocrit 31.1 % (35.3-44.9); Immature Granulocytes % 0.5 % (0-4); Lymphocytes # 2.4 K/mcL (0.6-4.6); Lymphocytes % 26.5 %; Mean Corpuscular HGB Conc 32.8 g/dL (31.6-35.5); Mean Corpuscular Hemoglobin 27.3 pg (28.0-33.3); Mean Corpuscular Volume 83.4 fL (83.0-100.0); Mean Platelet Volume 9.4 fL (9.4-12.4); Monocytes # 0.6 K/mcL (0.0-1.3); Platelet Count 171 K/mcL (140-400); Red Blood Count 3.73 M/mcL (3.82-4.97); Segmented Neutrophils % 65.5 %
[2018-01-01 04:28] LABS: Hemoglobin 10.2 g/dL (11.5-15.4)
[2018-01-01 04:49] LABS: Albumin 2.9 g/dL (3.5-5.7); Albumin/Globulin Ratio 1.3 (1.1-2.2); Bilirubin,Total 0.5 mg/dL (0.3-1.0); Calcium 7.6 mg/dL (8.6-10.3); Globulin 2.2 g/dL (2.4-3.5); Potassium 4.3 mEq/L (3.5-5.1); Total Protein 5.1 g/dL (6.4-8.9)
[2018-01-01] MEDS: 0.9 % Sodium Chloride 1,000 ML IVC SCH ×2 (04:56→12:15)
[2018-01-01] MEDS: Pantoprazole 40 MG VIAL IVP SCH ×2 (05:52→17:03)
[2018-01-01] MEDS: Insulin LISPRO 300 UNITS/3 ML VIAL SQ SCH ×4 (08:02→20:34)
[2018-01-01] MEDS: ALPRAZolam 1 MG TABLET PO SCH ×3 (08:03→20:33)
[2018-01-01] MEDS: *HR* OxyCODONE/APAP 10/325 TABLET PO PRN ×3 (08:17→20:34)
[2018-01-01] MEDS ORDERED: Furosemide 20 MG TABLET PO SCH (09:00)
[2018-01-01] MEDS: Tiotropium 18 MCG inhalation IH SCH (10:16)
--- NOTE | 2018-01-01 14:55 | Internal Med Progress Note ---
Date of Encounter: 01/01/18 Time of Encounter: 11:00 - Assessment and plan (1) Hematoma Current Visit: Yes Status: Acute Assessment and plan: Patient developed hematoma on 12/29/17 status post [facility] CT scan showed large subcutaneous/soft tissue hematoma in the proximal medial left thigh measuring approximately 11.8 x 7 x 11.3 cm in size with associated intramuscular hematoma of the left sartorius muscle and extensive surrounding subcutaneous edema. Has resolved, patient experienced acute on chronic anemia secondary to hematoma and received 4 units of packed red blood cells She has achieved hemostasis and is hemodynamic stable (2) ACS (acute coronary syndrome) Current Visit: Yes Status: Acute Assessment and plan: Patient no longer complaining of chest discomfort She had elevated cardiac biomarkers on presentation with EKG changes concerning for STEMI. Cardiology consulted with recommendations for [facility] which revealed mild disease ( 30% right PDA) Recommendations to continue medical management with aspirin statin and beta florentino (3) Cardiomyopathy Current Visit: Yes Status: Acute Assessment and plan: NICMP. EF 20-25% on [facility]. Mild CAD, 30% right PDA, otherwise angiographically free of disease. Repeat echocardiogram showed LVEF of 25-30% with segmental left ventricular systolic dysfunction. Continue beta florentino and REDDY inhibitor as above Qualifiers: Cardiomyopathy type: unspecified Qualified Code(s): I42.9 - Cardiomyopathy , unspecified (4) MARGRET (acute kidney injury) Current Visit: Yes Status: Acute Assessment and plan: Secondary to hypotension due to acute blood loss anemia as result of hematoma above Patient's creatinine trended: 1.06->1.41-> 1.5-> and now 1.34 Continue to monitor (5) Leukocytosis Current Visit: Yes Status: Resolved Assessment and plan: Resolved Chest x-ray and abdominal CT negative for infection; blood cultures without any growth to date Suspect stress-induced and therefore will discontinue IV Zosyn and vancomycin Will continue to monitor Qualifiers: Leukocytosis type: unspecified Qualified Code(s): D72.829 - Elevated white blood cell count, unspecified (6) COPD (chronic obstructive pulmonary disease) Current Visit: Yes Status: Chronic Assessment and plan: Stable; continue home meds Qualifiers: COPD type: unspecified COPD Qualified Code(s): J44.9 - Chronic obstructive pulmonary disease, unspecified (7) Type 2 diabetes mellitus Current Visit: Yes Status: Chronic Assessment and plan: Controlled; continue sliding scale insulin Qualifiers: Diabetes mellitus terminal clerk insulin use: unspecified terminal clerk insulin use status Diabetes mellitus complication status: with unspecified complications Qualified Code(s): E11.8 - Type 2 diabetes mellitus with unspecified complications - Time Spent With Patient Total time spent is greater than 50% in coordination of care (as documented) at patient's floor/unit and/or counseling patient: - Subjective Interval history: Patient with hemostasis of left thigh hematoma status post LHC; she hemodynamically stable Patient reporting of continued improvement in left thigh discomfort and was able to ambulate this morning Leukocytosis has now resolved and acute renal failure improving Anticipate discharge on 01/02/18 if renal function continues to improve - Constitutional Vitals: Temp Pulse Resp BP Pulse Ox 97.8 F 68 16 115/53 97 01/01/18 11:42 01/01/18 11:42 01/01/18 11:42 01/01/18 11:42 01/01/18 11:42 General appearance: Present: cooperative, mild distress (Abdominal pain, nausea) , A&O X 3, pleasant, no acute distress, answers questions appropriately - Respiratory Respiratory exam: Present: CTAB. Absent: accessory muscle use, rales, rhonchi, wheezes - Cardiovascular Cardiovascular exam: Present: RRR, +S1, +S2. Absent: diastolic murmur, gallop, rubs, systolic murmur Internal Medicine: Result - Labs CBC & Chem 7: 01/01/18 03:03 01/01/18 03:03 Labs: Short CBC 01/01/18 Range/Units 03:03 WBC 9.1 (4.3-11.1) K/mcL Hgb 10.2 L D (11.5-15.4) g/dL Hct 31.1 L (35.3-44.9) % Plt Count 171 (140-400) K/mcL Neutrophils # 6.0 (1.6-8.9) K/mcL BMP 01/01/18 03:03 Sodium 130 L Potassium 4.3 Chloride 103 Carbon Dioxide 23 BUN 40 H Creatinine 1.34 H Glucose 216 H Calcium 7.6 L Liver Function 01/01/18 Range/Units 03:03 Total Bilirubin 0.5 (0.3-1.0) mg/dL AST 9 L (13-39) Units/L ALT 5 L (7-52) Units/L Alkaline Phosphatase 47 (34-104) Units/L Albumin 2.9 L (3.5-5.7) g/dL - ABG Interpretation ABG results: PT/INR, D-dimer PT 11.6 Seconds (9.4-12.1) 12/30/17 11:48 Consult Discharge Plan - Plan Referrals: Alex Tapia Jr, MD [Primary Care Provider] -
--- NOTE | 2018-01-01 15:11 | Cardiology Progress Note ---
Date of Encounter: 01/01/18 Time of Encounter: 14:30 Assessment and Plan (1) ACS (acute coronary syndrome) Current Visit: Yes Status: Acute Per cardiology: -Troponin 4.47 on presentation with EKG changes concerning for STEMI. Troponins down trending. -LHC revealed mild disease--30% right PDA. All other arteries angiographically free of disease. EF 20-25% on LHC. Pateint NSTEMI. -TTE with LVEF 25-30% -Denies chest pain overnight. -REcommend ASA, Statin, BB, plavix. -Unfortunately, patient developed a large left hematoma. Has been transfused with PRBC. - Cardiology will sign off and will follow in outpateint setting. Follow up set. (2) Cardiomyopathy Current Visit: Yes Status: Acute Per cardiology: -NICMP. EF 20-25% on LHC. Mild CAD, 30% right PDA, otherwise angiographically free of disease. -TTE with LVEF 25-30%, segmental LV systolic dysfunction, mild diastolic dysfunction. -BB and ACEi started. Continue to monitor overnight. -Euvolemic on exam, CXR negative. Continue home Lasix 40mg daily PO. -CHF teaching given--2L fluid restriction and Na restriction. -Recheck TTE as outpt. -Will continue to monitor in outpatient setting. Qualifiers: Cardiomyopathy type: unspecified Qualified Code(s): I42.9 - Cardiomyopathy , unspecified (3) Hematoma Current Visit: Yes Status: Acute Per cardiology: -Hemoglobin stable. -LArge area of ecchymosis noted, no hematoma currently. -Will monitor in outpatient setting Discussion w patient/family: The assessment and plan as outlined above was discussed with the patient who expressed understanding and agreement. All questions were answered. Thank you for involving us in the care of your patient. Please call with any questions. Discussed and reviewed with Dr.Jennifer Meek. Subjective Principal diagnosis: ACS Interval history: Patient states she feels much better. Denies shortness of breath. Reports mild left leg pain. Objective Vital Signs, Last 4 Hours Temp Pulse Resp BP Pulse Ox 01/01/18 15:00 99.2 F 70 15 114/54 97 01/01/18 11:42 97.8 F 68 16 115/53 97 General: Conversant, No Apparent Distress HEENT: Atraumatic, Normocephaly, Mucus Membranes Moist Neck: No JVD, Normal carotid pulses Cardiac: Reg Rate and Rhythm, Normal S1 and S2, No Murmur Lungs: Normal Breath Sounds, No Wheeze, Rales, Rhonchi Neuro: Alert and responsive, No focal deficits noted Abdomen: Soft, Non-Tender Skin: No rashes noted on visualized skin, Other (Left leg with large area of ecchymosis. ) Musculoskeletal: No Chest Wall Tenderness Extremities: No Clubbing, No Cyanosis, No Edema, Normal Pulses Results 01/01/18 03:03 01/01/18 03:03 Lab Results 01/01/18 01/01/18 03:03 03:03 WBC 9.1 Hgb 10.2 L D Hct 31.1 L Plt Count 171 Sodium 130 L Potassium 4.3 Chloride 103 Carbon Dioxide 23 BUN 40 H Creatinine 1.34 H Glucose 216 H Calcium 7.6 L Total Bilirubin 0.5 AST 9 L ALT 5 L Alkaline Phosphatase 47 Consult Discharge Plan - Plan Referrals: Alex Tapia Jr, MD [Primary Care Provider] -
[2018-01-02] MEDS: 0.9 % Sodium Chloride 1,000 ML IVC SCH (01:05)
[2018-01-02] MEDS: Levalbuterol Neb 1.25 MG/3 ML IH SCH ×2 (03:45→10:53)
[2018-01-02] MEDS: Pantoprazole 40 MG VIAL IVP SCH (05:15)
[2018-01-02 05:27] LABS: Basophils # 0.1 K/mcL (0.0-0.2); Basophils % 0.7 %; Hematocrit 31.7 % (35.3-44.9); Hemoglobin 10.3 g/dL (11.5-15.4); Immature Granulocytes % 0.4 % (0-4); Lymphocytes # 2.3 K/mcL (0.6-4.6); Lymphocytes % 32.4 %; Mean Corpuscular HGB Conc 32.5 g/dL (31.6-35.5); Mean Corpuscular Hemoglobin 27.2 pg (28.0-33.3); Mean Corpuscular Volume 83.9 fL (83.0-100.0); Mean Platelet Volume 9.6 fL (9.4-12.4); Monocytes # 0.5 K/mcL (0.0-1.3); Monocytes % 7.5 %; Neutrophils # 4.3 K/mcL (1.6-8.9); Platelet Count 199 K/mcL (140-400); Red Blood Count 3.78 M/mcL (3.82-4.97); Red Cell Distribution Width 17.1 % (11.5-14.5)
[2018-01-02 05:44] LABS: Alanine Aminotransferase 5 Units/L (7-52); Albumin/Globulin Ratio 1.4 (1.1-2.2); Alkaline Phosphatase 48 Units/L (34-104); Aspartate Amino Transferase 10 Units/L (13-39); BUN/Creatinine Ratio 29 (6-26); Bilirubin,Total 0.5 mg/dL (0.3-1.0); Blood Urea Nitrogen 28 mg/dL (6-20); Carbon Dioxide 23 mEq/L (23-29); Chloride 105 mEq/L (98-107); Globulin 2.2 g/dL (2.4-3.5); Glucose 174 mg/dL (70-105); Osmolality,Calculated 284 (280-300); Potassium 4.9 mEq/L (3.5-5.1); Sodium 132 mEq/L (136-145); Total Protein 5.2 g/dL (6.4-8.9); eGFR For African Americans > 60 (> 60); eGFR For Non-African Americans 59 (> 60)
[2018-01-02 07:55] VITALS: BP 120/72
[2018-01-02] MEDS: *HR* OxyCODONE/APAP 10/325 TABLET PO PRN (07:55)
[2018-01-02] MEDS: ALPRAZolam 1 MG TABLET PO SCH (07:56)
[2018-01-02] MEDS: Insulin LISPRO 300 UNITS/3 ML VIAL SQ SCH (08:04)
[2018-01-02] MEDS ORDERED: Furosemide 40 MG TABLET PO SCH (09:00)
[2018-01-02] MEDS ORDERED: Aspirin Enteric Coated 81 MG Tablet PO SCH (09:00)
--- NOTE | 2018-01-02 10:02 | Discharge Summary ---
- NOTES TO OUTPATIENT PROVIDER Notes to Outpatient Provider: Patient will need CBC monitored as an outpatient for monitoring of anemia Orders not resulted at time of discharge: Pending orders 12/29/17 15:48 Culture,Blood [BC] Stat Culture,Blood,Additional [BC] Stat 12/29/17 17:15 Occult Blood,Stool [BF] Stat 12/29/17 22:00 US pelvic complete [US] Stat US retroperitoneal comp [US] Stat 12/29/17 22:03 ECG 12 lead ECG [ECG] Stat 01/03/18 04:00 BMP [Basic Metabolic Panel] AM 0400 Complete Blood Count [HEME] AM 0400 Comprehensive Metabolic Panel AM 0400 Date of Encounter: 01/02/18 Time of Encounter: 10:00 - Discharge Diagnosis (1) Hematoma Priority: Primary Status: Acute (2) ACS (acute coronary syndrome) Priority: Primary Status: Acute (3) Cardiomyopathy Priority: Primary Status: Acute Qualifiers: Cardiomyopathy type: unspecified Qualified Code(s): I42.9 - Cardiomyopathy , unspecified (4) MARGRET (acute kidney injury) Priority: Secondary Status: Acute (5) Leukocytosis Priority: Secondary Status: Resolved Qualifiers: Leukocytosis type: unspecified Qualified Code(s): D72.829 - Elevated white blood cell count, unspecified (6) COPD (chronic obstructive pulmonary disease) Priority: Secondary Status: Chronic Qualifiers: COPD type: unspecified COPD Qualified Code(s): J44.9 - Chronic obstructive pulmonary disease, unspecified (7) Type 2 diabetes mellitus Priority: Secondary Status: Chronic Qualifiers: Diabetes mellitus terminal operations manager insulin use: unspecified shelter insulin use status Diabetes mellitus complication status: with unspecified complications Qualified Code(s): E11.8 - Type 2 diabetes mellitus with unspecified complications Hospital course: Patient is a 57-year-old female with past medical history significant for CHF, COPD, diabetes controlled with insulin, and TIA (last incident 1 year ago) who was transferred from Cardiology service to Hospitalist service due to changes in current status. Patient was admitted on 12/29/17 on the cardiology service for [facility] which revealed mild disease--30% right PDA. All other arteries angiographically free of disease. EF 20-25% on [facility]. Relations for medical management with aspirin and statin and beta florentino. Patient now with leukocytosis (WBC of 18.3), lactic acid of 5.3, HR of 113, RR of 24. She reported of nausea, chest discomfort in epigastric area, shortness of breath and generalized weakness. Patient complaining of left thigh pain for LHC was done and CT showed a large subcutaneous/soft tissue hematoma in the proximal medial left thigh. Vascular surgery was consulted with recommendations to apply pressure. Patient also had acute blood loss anemia and was transfused 4 units of packed red blood cells. Patient is now hemodynamically stable with decreased left thigh discomfort. Patients leukocytosis resolved and was thought to be secondary to reactive reaction and not septic shock; sepsis rule out as there was no source of infection. She will be discharged to follow-up with primary care provider. - Time Spent with Patient Total time spent providing and/or coordinating discharge services: - Discharge Medications Prescriptions: Carvedilol [Coreg] 3.125 mg PO BIDWM #60 tablet Clopidogrel [Plavix] 75 mg PO DAILY #30 tablet Lisinopril [Zestril] 2.5 mg PO DAILY #30 tablet Home Medications: Alprazolam [Xanax] 1 mg PO TID PRN 06/26/15 [History] Citalopram [CeleXA] 20 mg PO DAILY 06/26/15 [History] Furosemide [Lasix] 40 mg PO DAILY 06/26/15 [History] Insulin LISPRO [HumaLOG] 5 units SQ TIDWM 06/26/15 [History] Omeprazole [PriLOSEC] 40 mg PO DAILY 06/26/15 [History] Tiotropium [Spiriva] 1 puff IH DAILY 06/26/15 [History] Aspirin 81 mg PO DAILY 02/06/16 [History] Oxycodone HCl/Acetaminophen [Percocet 10-325 mg Tablet] 1 tab PO Q6H PRN [History] Carvedilol [Coreg] 3.125 mg PO BIDWM #60 tablet 01/02/18 [Rx] Clopidogrel [Plavix] 75 mg PO DAILY #30 tablet 01/02/18 [Rx] Lisinopril [Zestril] 2.5 mg PO DAILY #30 tablet 01/02/18 [Rx] Allergies/Adverse Reactions: 3 Allergy/AdvReac Type Severity Reaction Status Date / Time Procaine [From Novocain] Allergy Difficulty Verified 12/29/17 06:06 Breathing, SWELLING Date of admission: 12/29/17 07:01 Primary care physician: Alex Tapia Jr, MD Consults: 12/29/17 13:52 Consult to Hospitalist [CONS] Routine Consulting Provider: Hospitalist Bailee Reason for Consult: Management of care, no signficant CAD on LH. Call Completed: Yes 12/29/17 15:14 Consult to Sales Service Rep [CONS] Routine Reason for SW Consult: Please assess patient for possible home needs for post -discharge planning. 12/30/17 00:10 Consult to Vascular Surgery [CONS] Routine Consulting Provider: Vascular Surgery Karen Reason for Consult: Patient developed hematoma post-LHC this evening. Drop in Hgb from [address] Julio w/recommendation for stat CBC, CT scan of abd/ pel w/IV contrast to assess for retroperitoneal bleeding, re-apply pressure to site and place Vascular consult. Pt. has 4 units PRBCs ordered. Will transfer from 2A35 to ICU5. Pt. became hypotensive w/BP of 72/53 and IV 250 fluid bolus given over 30 minutes. BP at 23:34 94/64. Call Completed: Yes 01/01/18 12:43 Consult to Cardiac Rehabilitation-Phase1 [CONS] Routine Comment: Reason for Consult: NSTEMI Call Completed: No - Constitutional Vitals: Temp Pulse Resp BP Pulse Ox 98.1 F 72 16 120/72 96 01/02/18 07:09 01/02/18 07:09 01/02/18 07:09 01/02/18 07:55 01/02/18 07:09 General appearance: Present: cooperative, mild distress (Abdominal pain, nausea) , A&O X 3, pleasant, no acute distress, answers questions appropriately - Patient Status Disposition: Home, Self-Care Condition: Serious - Discharge Instructions Instructions: Lisinopril (By mouth), Carvedilol (By mouth), Clopidogrel (By mouth), Chest Pain (DC) Follow Up With: Alex Tapia Jr, MD [Primary Care Provider] - 01/09/18 3:00 pm
[2018-01-02] MEDS: Tiotropium 18 MCG inhalation IH SCH (10:53)
== END 2018-01-02 13:03 | disposition home or self-care (01) | DRG 190 ==
LOC: EMEROO 05:52 → ICNU 07:01 → SUATTDRO 07:01 → ICNU 07:21 → 2ANU 08:13 → ICNU 12-30 00:15 → 3BNU 12-31 13:29
PROVIDERS: ADMIT Internal Medicine Cardiovascular Disease; ATTEND Hospitalist

== ENCOUNTER 2018-01-04 00:40 | Observation (INO) ==
[2018-01-04] MEDS ORDERED: Ondansetron 4 MG/2 ML VIAL IVP ONE (01:01)
[2018-01-04] MEDS ORDERED: *HR* FentaNYL (PF) 100 MCG/2 ML VIAL IVP ONE (01:01)
--- NOTE | 2018-01-04 01:03 | Emergency Department Note ---
Disposition Clinical Impression: Hematoma, Shortness of breath, Clinical decompensation Disposition: Admitted As Inpatient Condition: Good Time of Disposition: 05:18 General Adult HPI - General Chief complaint: ED Shortness of Breath/Dyspnea Stated complaint: KRISHAN Time Seen by Provider: 01/04/18 00:57 Source: patient, EMS Limitations: no limitations Nursing Notes Reviewed: Yes Vital Signs Reviewed: Yes - History of Present Illness HPI Narrative: Increasing swelling in her left lower extremity after discharge from the hospital a couple days prior for a left heart catheter. Also increasing shortness of breath and this. This time. She states she is decompensating at home. Increasing level of pain to her left lower extremity as well. Inability to ambulate without maximal assistance. Pain Scale: 9 - Related Data Home Medications Medication Instructions Recorded Confirmed Alprazolam [Xanax] 1 mg PO TID PRN 06/26/15 01/04/18 Citalopram [CeleXA] 20 mg PO DAILY 06/26/15 01/04/18 Furosemide [Lasix] 40 mg PO DAILY 06/26/15 01/04/18 Insulin LISPRO [HumaLOG] 5 units SQ TIDWM 06/26/15 01/04/18 Omeprazole [PriLOSEC] 40 mg PO DAILY 06/26/15 01/04/18 Tiotropium [Spiriva] 1 puff IH DAILY 06/26/15 01/04/18 Aspirin 81 mg PO DAILY 02/06/16 01/04/18 Oxycodone HCl/Acetaminophen 1 tab PO Q6H PRN 02/06/16 01/04/18 [Percocet 10-325 mg Tablet] Previous Rx's Medication Instructions Recorded Carvedilol [Coreg] 3.125 mg PO BIDWM #60 tablet 01/02/18 Clopidogrel [Plavix] 75 mg PO DAILY #30 tablet 01/02/18 Lisinopril [Zestril] 2.5 mg PO DAILY #30 tablet 01/02/18 Allergies Allergy/AdvReac Type Severity Reaction Status Date / Time Procaine [From Novocain] Allergy Difficulty Verified 12/29/17 06:06 Breathing, SWELLING All systems ED: reviewed and negative except as stated. Constitutional: Denies: fever, chills ENT ED: Denies: congestion Cardiovascular: Denies: chest pain, palpitations, syncope Respiratory: Reports: dyspnea. Denies: cough Gastrointestinal: Denies: abdominal pain, nausea, vomiting, diarrhea, hematemesis, melena, hematochezia Genitourinary: Denies: urgency, dysuria, frequency, hematuria Musculoskeletal: Reports: other (Left groin pain). Denies: back pain Integumentary: Denies: rash, abrasion Neurological: Reports: weakness. Denies: headache Past Medical History - Past Medical History Attestation: Yes The following information was validated with the patient. Source: patient Medical history: Reports: CHF, COPD, diabetes, TIA Surgical history: Reports: other Psychiatric history: Reports: anxiety, depression - Social History Smoking Status: Current every day smoker Smokeless Tobacco Status: No Alcohol use: Reports: none Drug use: Reports: marijuana Physical Exam - General Limitations: no limitations General appearance: alert, in no apparent distress - Head Head exam: atraumatic, normocephalic, normal inspection - Eye Eye exam: Present: normal appearance, PERRL, EOMI - ENT ENT exam: normal exam, normal oropharynx, mucous membranes moist - Neck Neck exam: Present: normal inspection, full ROM, trachea midline. Absent: tenderness - Chest Chest inspection: Present: normal inspection, symmetric chest wall rise - Respiratory Respiratory exam: Present: normal lung sounds bilaterally. Absent: respiratory distress, wheezes, accessory muscle use - Cardiovascular Cardiovascular exam: Present: regular rate, normal rhythm, normal heart sounds - Abdominal Exam Abdominal exam: Present: soft, Non-Tender. Absent: tenderness, distention, guarding, rebound, rigidity, organomegaly - Extremities Exam Extremities exam: Present: normal capillary refill, other (Increasing swelling to left lower extremity. Large amount of ecchymosis to upper portion of left lower extremity pain to palpation of left inguinal area.). Absent: pedal edema - Back Exam Back exam: Present: normal inspection, full ROM. Absent: tenderness - Neurological Exam Neurological exam: Present: alert, oriented X3 - Psychiatric Psychiatric exam: Present: anxious - Skin Skin exam: Present: warm, dry, intact, normal color. Absent: rash, cyanosis Course Course Narrative: Female patient was presents emergency department after being discharged on Tuesday from a left heart catheter. She now has increasing swelling to her left lower extremity as well as some ecchymosis. She reports anxiety and pain to this area. She states that she is taking pain medication and her anxiety medication has gotten no relief. She denies any chest pain at this time. She is on oxygen which she wears at home. We will get a basic workup on patient include of a troponin CBC and CMP. Patient's left lower extremity is swollen and ecchymotic however she has good pulses distal to this. She states that the area has increasing in swelling since she left. She states the pain has also increased. She is taking her at home pain medication as well as her Xanax with no relief of this. Her shortness of breath has increased as well. Her lower extremity compartments are soft. She does have pain on movement of this left lower extremity. - Reevaluation(s) Reevaluation #1: Patient CTA showed no signs of pulmonary embolism. She states that she is baseline anxious. She did take a Xanax prior to leaving her house with no relief of the anxiety. She is requesting more medication at this time. We will provide her with Ativan at this time. Time: 03:23 Reevaluation #2: Patient reassessed. CT of patient's abdomen showed that the hematoma is resolving. We are back to discuss discharge home with the patient she expresses that she cannot get around her house and take care of herself. She states that she cannot ambulate without maximal assistance. She has an elderly mother that lives with her who is unable to help her. We will admit patient to the hospital for decomposition and physical therapy occupational therapy. She is requesting placement at a physical therapy site. Time: 05:04 - Consultations Consultation #1: Dr pettit accepted Pt in stable condition. Time: 05:14 Vital Signs Temperature 97.6 F 01/04/18 00:52 Pulse Rate 71 01/04/18 00:52 Respiratory Rate 18 01/04/18 00:52 Blood Pressure 128/68 01/04/18 00:52 O2 Sat by Pulse Oximetry 98 01/04/18 00:52 Temperature 97.6 F 01/04/18 00:52 Pulse Rate 73 01/04/18 05:50 Respiratory Rate 18 01/04/18 05:50 Blood Pressure 147/69 01/04/18 05:50 O2 Sat by Pulse Oximetry 95 01/04/18 05:50 Oxygen Delivery Oxygen Delivery Room Air Medical Decision Making - Medical Records Medical records reviewed: Yes I reviewed the patient's medical records. - Lab Data Lab results reviewed: Yes I reviewed the patient's lab results. Result diagrams: 01/04/18 01:12 01/04/18 01:12 Lab Results 01/04/18 01/04/18 Range/Units 01:12 01:12 WBC 9.8 (4.3-11.1) K/mcL RBC 3.85 (3.82-4.97) M/mcL Hgb 10.7 L (11.5-15.4) g/dL Hct 31.6 L (35.3-44.9) % MCV 82.1 L (83.0-100.0) fL MCH 27.8 L (28.0-33.3) pg MCHC 33.9 (31.6-35.5) g/dL RDW 16.5 H (11.5-14.5) % Plt Count 243 (140-400) K/mcL MPV 8.8 L (9.4-12.4) fL Immature Gran % 0.5 (0-4) % Seg Neutrophils % 73.2 % Lymphocytes % 17.9 % Monocytes % 8.1 % Eosinophils % 0.0 % Basophils % 0.3 % Neutrophils # 7.2 (1.6-8.9) K/mcL Lymphocytes # 1.8 (0.6-4.6) K/mcL Monocytes # 0.8 (0.0-1.3) K/mcL Eosinophils # 0.0 (0.0-0.6) K/mcL Basophils # 0.0 (0.0-0.2) K/mcL Sodium 136 (136-145) mEq/L Potassium 4.4 (3.5-5.1) mEq/L Chloride 107 (98-107) mEq/L Carbon Dioxide 22 L (23-29) mEq/L BUN 16 (6-20) mg/dL Creatinine 0.78 (0.60-1.20) mg/dL Est GFR ( Amer) > 60 (> 60) Est GFR (Non-Af Amer) > 60 (> 60) BUN/Creatinine Ratio 21 (6-26) Glucose 238 H (70-105) mg/dL Calculated Osmolality 291 (280-300) Calcium 8.2 L (8.6-10.3) mg/dL Total Bilirubin 0.5 (0.3-1.0) mg/dL AST 10 L (13-39) Units/L ALT 4 L (7-52) Units/L Alkaline Phosphatase 51 (34-104) Units/L Troponin I 0.11 H* (< 0.04) ng/mL Serum Total Protein 5.5 L (6.4-8.9) g/dL Albumin 3.1 L (3.5-5.7) g/dL Globulin 2.4 (2.4-3.5) g/dL Albumin/Globulin Ratio 1.3 (1.1-2.2) - Radiology Data Radiology results reviewed: Yes I reviewed the patient's radiology results. Chest CTA 01/04/18 01:04 IMPRESSION: No evidence of pulmonary embolism. Mild right basilar opacities stable since prior examination suggesting focal atelectasis or scarring. Unchanged 2.8 cm right thyroid lobe nodule. Recommend further evaluation with ultrasound if not already performed. RECOMMENDATIONS: Managing Incidental Thyroid Nodule Detected at CT or MRI or US 1. Further evaluation by thyroid Ultrasound recommended for these incidental nodules: Patient Age 35 years or more - Nodule 1.5 cm in size or greater Note: These recommendations do not apply to pts. w/ increased risk for thyroid cancer or pts. with symptomatic thyroid disease. Recommendations for f/u of Incidental Thyroid Nodules (ITN) found on CT, MR, NM and Extrathyroidal US are based upon the ACR white paper and Márquez 3-tiered system for managing ITNs: J Am Sridevi Radiol. 2014;12(2): 143-50 D/ / Wilfredo Ferro MD / Wilfredo Ferro MD Interpreting Provider: Wilfredo Ferro MD - EKG Data EKG #1 EKG attestation: Yes I reviewed and interpreted this EKG. EKG results narrative: Normal sinus rhythm at a rate of 69. OK interval is 154. QRS duration is 118. QT is 429. QTC is 448. Patient does have T-wave inversions in leads V3 V4 V5 and V6. No signs of acute ischemia. No significant change from previous EKG dated 2017. Attestation Statement - Attestation Attestation: I examined this patient and my medical decision-making was reviewed with the Resident Physician. I agree with the documented findings, disposition and treatment plan as described except to the extent set forth below. Findings consistent with like hematoma following cardiac catheterization and as well as chronic dyspnea. Hematoma is resolving. No evidence of pulmonary embolism. The patient cannot walk and cannot care for herself. She is requiring social admission the hospital for further management. She is requesting placement in a nursing facility.
[2018-01-04] MEDS ORDERED: Isovue-370 500 ML INFUS..BTL IV ONE (01:04)
[2018-01-04 01:31] LABS: Basophils % 0.3 %; Hematocrit 31.6 % (35.3-44.9); Hemoglobin 10.7 g/dL (11.5-15.4); Immature Granulocytes % 0.5 % (0-4); Lymphocytes # 1.8 K/mcL (0.6-4.6); Lymphocytes % 17.9 %; Mean Corpuscular HGB Conc 33.9 g/dL (31.6-35.5); Mean Corpuscular Hemoglobin 27.8 pg (28.0-33.3); Mean Corpuscular Volume 82.1 fL (83.0-100.0); Mean Platelet Volume 8.8 fL (9.4-12.4); Monocytes # 0.8 K/mcL (0.0-1.3); Monocytes % 8.1 %; Neutrophils # 7.2 K/mcL (1.6-8.9); Platelet Count 243 K/mcL (140-400); Red Blood Count 3.85 M/mcL (3.82-4.97); Red Cell Distribution Width 16.5 % (11.5-14.5); Segmented Neutrophils % 73.2 %
[2018-01-04 01:51] LABS: Alanine Aminotransferase 4 Units/L (7-52); Albumin 3.1 g/dL (3.5-5.7); Albumin/Globulin Ratio 1.3 (1.1-2.2); Alkaline Phosphatase 51 Units/L (34-104); Aspartate Amino Transferase 10 Units/L (13-39); BUN/Creatinine Ratio 21 (6-26); Bilirubin,Total 0.5 mg/dL (0.3-1.0); Blood Urea Nitrogen 16 mg/dL (6-20); Calcium 8.2 mg/dL (8.6-10.3); Carbon Dioxide 22 mEq/L (23-29); Chloride 107 mEq/L (98-107); Globulin 2.4 g/dL (2.4-3.5); Glucose 238 mg/dL (70-105); Osmolality,Calculated 291 (280-300); Potassium 4.4 mEq/L (3.5-5.1); Sodium 136 mEq/L (136-145); Total Protein 5.5 g/dL (6.4-8.9); eGFR For African Americans > 60 (> 60); eGFR For Non-African Americans > 60 (> 60)
[2018-01-04 01:55] LABS: Troponin I 0.11 ng/mL (< 0.04)
[2018-01-04] MEDS ORDERED: *HR* LORazepam 2 MG/ML VIAL IVP ONE (03:22)
[2018-01-04] MEDS ORDERED: Naloxone 0.4 MG/ML INJ IVP PRN (06:09)
[2018-01-04] MEDS ORDERED: Acetaminophen 325 MG TABLET PO PRN (06:09)
[2018-01-04] MEDS ORDERED: traMADol 50 MG TABLET PO PRN (06:09)
[2018-01-04] MEDS ORDERED: *HR* Dextrose 50 % in Water (Syg) 50 ML SYRINGE IVP PRN (06:12)
[2018-01-04] MEDS ORDERED: Dextrose Gel 15 GM/37.5 ML TUBE PO PRN ×2 (06:12)
[2018-01-04] MEDS ORDERED: D5% in Water 1,000 ML IVC PRN (06:12)
[2018-01-04] MEDS ORDERED: Ipratropium/Albuterol Neb 3 ML IH PRN (06:13)
--- NOTE | 2018-01-04 06:19 | Internal Med History&Physical ---
Date of Encounter: 01/04/18 Time of Encounter: 06:15 Internal Medicine - H&P: HPI Chief complaint: Anxiety, left leg pain Admitted From: Emergency Dept Plans for Post Hospital Care: Transfer Inp Rehab Fac History of present illness: Ms. Gomez is a 57 year old female with h/o- CHF, CAD, COPD, who was recently admitted for cardiac symptoms, underwent LHC, with subsequent left groin and thigh hematoma, just discharged 2 days ago. SHe reports worsening significant pain in left leg since last night, which caused her diaphoresis, anxiety, chest pressure and just not feeling well. SHe thought her leg swelling has increased, given the amount of pain she was having. No fever/chills, chest pain, cough, abdominal pain, nausea/vomiting. Past Med Surg Social Fam HX - Past Medical History Source: patient Medical history: CHF, COPD, coronary artery disease, diabetes, TIA Psychiatric history: anxiety, depression - Past Surgical History Surgical History: other (vascular surgery) - Social History Smoking Status: Current every day smoker (just quit since last admission) Smokeless Tobacco Status: No Alcohol use: none Drug use: marijuana Occupational status: disabled Current living situation: Home, With Family Activity Level: Uses cane/walker Recent Out of Country Travel Within the Last 8 Weeks: No Exposure or Possible Exposure to Illness During Travel: No - Family History Father Family Member Ethnicity: Non- Living Status: Hx Family Cardiac Disorders: Yes (Quad bypass, HTN, HLD) Mother Family Member Ethnicity: Non- Living Status: Still Living Hx Family Cardiac Disorders: Yes (Afib) Brother Family Member Ethnicity: Non- Living Status: Still Living Internal Medicine - H&P: Meds Alprazolam [Xanax] 1 mg PO TID PRN 06/26/15 [History] Citalopram [CeleXA] 20 mg PO DAILY 06/26/15 [History] Furosemide [Lasix] 40 mg PO DAILY 06/26/15 [History] Insulin LISPRO [HumaLOG] 5 units SQ TIDWM 06/26/15 [History] Omeprazole [PriLOSEC] 40 mg PO DAILY 06/26/15 [History] Tiotropium [Spiriva] 1 puff IH DAILY 06/26/15 [History] Aspirin 81 mg PO DAILY 02/06/16 [History] Oxycodone HCl/Acetaminophen [Percocet 10-325 mg Tablet] 1 tab PO Q6H PRN [History] Carvedilol [Coreg] 3.125 mg PO BIDWM #60 tablet 01/02/18 [Rx] Clopidogrel [Plavix] 75 mg PO DAILY #30 tablet 01/02/18 [Rx] Lisinopril [Zestril] 2.5 mg PO DAILY #30 tablet 01/02/18 [Rx] 3 Allergy/AdvReac Type Severity Reaction Status Date / Time Procaine [From Novocain] Allergy Difficulty Verified 12/29/17 06:06 Breathing, SWELLING All Systems PM: A 10-system review of systems was performed and is negative for pertinent findings except as documented above in the HPI. - Constitutional Constitutional: weakness, no chills, no fever(s), no night sweats - EENT Eyes: no change in vision, no discharge, no pain, no photophobia Ears: no ear discharge, no ear pain, no tinnitus Nose, mouth and throat: no dysphagia, no nasal discharge, no neck pain, no sore throat - Cardiovascular Cardiovascular ROS IM: chest pain, diaphoresis, dyspnea, edema - Respiratory Respiratory: no cough, no dyspnea, no wheezing, no excessive phlegm production - Gastrointestinal Gastrointestinal: no abdominal pain, no diarrhea, no hematemesis, no hematochezia, no melena, no nausea, no vomiting - Genitourinary Genitourinary: no change in urinary stream, no dysuria, no flank pain, no hematuria - Musculoskeletal Musculoskeletal ROS IM: no numbness, no tingling - Integumentary Integumentary IM: no rash, no unusual bruising - Neurological Neurological ROS: no confusion, no convulsions, no focal weakness, no numbness, no tingling, no tremor(s) - Hematologic/Lymphatic Hematologic/Lymphatic: no easy bruising - Constitutional Vitals: Temp Pulse Resp BP Pulse Ox 97.6 F 73 18 147/69 95 01/04/18 00:52 01/04/18 05:50 01/04/18 05:50 01/04/18 05:50 01/04/18 05:50 General appearance: Present: A&O X 3, answers questions appropriately - Respiratory Respiratory exam: Present: decreased breath sounds (at B/L bases), CTAB. Absent : accessory muscle use, rales, rhonchi, wheezes - Cardiovascular Cardiovascular exam: Present: RRR, +S1, +S2. Absent: diastolic murmur, gallop, rubs, systolic murmur - GI/Abdominal GI/Abdominal exam: Present: normal bowel sounds, soft, no peritoneal signs. Absent: distended, tenderness - Extremities Exam Extremities exam: Present: pedal edema (left thigh edema- not tense, with ecchymoses over thigh and groin; distal pulses palpable and extremity warm), warm, radial pulses palpable and symmetrical. Absent: calf tenderness, cyanotic - Neurological Exam Neurological exam: Present: CN II-XII intact, oriented X3, no focal deficits. Absent: pronater drift, facial droop, speech deficit - Skin Skin exam: Present: dry, intact Internal Med - H&P Results - Labs CBC & Chem 7: 01/04/18 01:12 01/04/18 01:12 - EKG Data -: EKG Interpreted by Myself EKG shows normal: sinus rhythm (TWI in precordial leads- V3-6, old changes) Rate: normal - Assessment and plan (1) Hematoma Current Visit: Yes Status: Acute Assessment and plan: Subacute; CT left leg shows improvement in subcutaneous hematoma; continue supportive care with pain control; PT/OT evaluation; fall precautions; (2) Cardiomyopathy Current Visit: Yes Status: Chronic Assessment and plan: Echo from last week shows EF 25-30%, mild LV diastolic dysfunction. LHC showed mild plaque, no stents were placed. Continue ASA, Plavix, beta florentino, ACEI; Qualifiers: Cardiomyopathy type: unspecified Qualified Code(s): I42.9 - Cardiomyopathy , unspecified (3) Coronary artery disease Current Visit: Yes Status: Chronic Qualifiers: Coronary Disease-Associated Artery/Lesion type: [place] artery [place] vs. transplanted heart: [place] heart Associated angina: without angina Qualified Code(s): I25.10 - Atherosclerotic heart disease of [place] coronary artery without angina pectoris (4) COPD (chronic obstructive pulmonary disease) Current Visit: Yes Status: Chronic Assessment and plan: not in acute exacerbation; continue PRN bronchodilator nebs; CTA chest showed no PE; Qualifiers: COPD type: unspecified COPD Qualified Code(s): J44.9 - Chronic obstructive pulmonary disease, unspecified (5) Type 2 diabetes mellitus Current Visit: Yes Status: Chronic Assessment and plan: RBG noted to be high; Accucheck blood glucose monitoring with sliding scale insulin as needed; diabetic diet; 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
[2018-01-04] MEDS: Furosemide 40 MG TABLET PO SCH (08:07)
[2018-01-04] MEDS: *HR* OxyCODONE Immed Rel 5 MG TABLET PO PRN ×3 (08:07→21:24)
[2018-01-04] MEDS: ALPRAZolam 1 MG TABLET PO PRN ×3 (08:07→21:24)
[2018-01-04] MEDS: Aspirin 81 MG TAB.CHEW PO SCH (08:07)
[2018-01-04] MEDS: Insulin LISPRO 300 UNITS/3 ML VIAL SQ SCH ×3 (08:09→16:54)
[2018-01-04] MEDS ORDERED: Tiotropium 18 MCG inhalation IH SCH (09:00)
[2018-01-04] MEDS: Tiotropium 18 MCG inhalation IH SCH (10:47)
--- NOTE | 2018-01-04 12:33 | Electrocardiograph Report ---
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
[2018-01-04] MEDS ORDERED: Insulin LISPRO 300 UNITS/3 ML VIAL SQ SCH (21:00)
[2018-01-05 03:43] LABS: Basophils % 0.4 %; Hematocrit 29.8 % (35.3-44.9); Hemoglobin 9.8 g/dL (11.5-15.4); Immature Granulocytes % 0.4 % (0-4); Lymphocytes # 2.3 K/mcL (0.6-4.6); Lymphocytes % 29.9 %; Mean Corpuscular HGB Conc 32.9 g/dL (31.6-35.5); Mean Corpuscular Hemoglobin 27.7 pg (28.0-33.3); Mean Corpuscular Volume 84.2 fL (83.0-100.0); Mean Platelet Volume 9.2 fL (9.4-12.4); Monocytes # 0.8 K/mcL (0.0-1.3); Monocytes % 10.6 %; Neutrophils # 4.5 K/mcL (1.6-8.9); Platelet Count 200 K/mcL (140-400); Red Blood Count 3.54 M/mcL (3.82-4.97); Red Cell Distribution Width 16.7 % (11.5-14.5); Segmented Neutrophils % 58.7 %
[2018-01-05 03:59] LABS: BUN/Creatinine Ratio 23 (6-26); Blood Urea Nitrogen 15 mg/dL (6-20); Calcium 7.9 mg/dL (8.6-10.3); Carbon Dioxide 25 mEq/L (23-29); Chloride 106 mEq/L (98-107); Glucose 104 mg/dL (70-105); Osmolality,Calculated 281 (280-300); Potassium 5.3 mEq/L (3.5-5.1); Sodium 135 mEq/L (136-145); eGFR For African Americans > 60 (> 60); eGFR For Non-African Americans > 60 (> 60)
[2018-01-05] MEDS: *HR* OxyCODONE Immed Rel 5 MG TABLET PO PRN ×2 (04:37→10:52)
[2018-01-05] MEDS: Tiotropium 18 MCG inhalation IH SCH (07:56)
[2018-01-05] MEDS: Insulin LISPRO 300 UNITS/3 ML VIAL SQ SCH ×2 (08:21→11:46)
[2018-01-05] MEDS: ALPRAZolam 1 MG TABLET PO PRN (08:22)
[2018-01-05] MEDS: Aspirin 81 MG TAB.CHEW PO SCH (08:23)
[2018-01-05] MEDS: Furosemide 40 MG TABLET PO SCH (08:23)
[2018-01-05 11:03] VITALS: BP 106/44
--- NOTE | 2018-01-05 11:18 | Discharge Summary ---
- NOTES TO OUTPATIENT PROVIDER Notes to Outpatient Provider: Follow-up with primary care physician within the next 7 days. 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 LHC showed mild plaque, no stents were placed. Continue ASA, Plavix, beta florentino, ACEI; Qualifiers: Cardiomyopathy type: unspecified Qualified Code(s): I42.9 - Cardiomyopathy , unspecified (4) COPD (chronic obstructive pulmonary disease) Priority: Secondary Status: Chronic Assessment and Plan: not in acute exacerbation; continue PRN bronchodilator nebs; CTA chest showed no PE; Qualifiers: COPD type: unspecified COPD Qualified Code(s): J44.9 - Chronic obstructive pulmonary disease, unspecified (5) Coronary artery disease Priority: Secondary Status: Chronic Qualifiers: Coronary Disease-Associated Artery/Lesion type: [place] artery [place] vs. transplanted heart: [place] heart Associated angina: without angina Qualified Code(s): I25.10 - Atherosclerotic heart disease of [place] coronary artery without angina pectoris Hospital course: Ms. Gomez is a 57 year old female with h/o- to [place] acute CHF, CAD, COPD not oxygen dependent, who was recently admitted for cardiac symptoms, underwent LHC, with subsequent left groin and thigh hematoma, just discharged 2 days prior to this admission. SHe reported worsening significant pain in left leg , which caused her diaphoresis, anxiety, chest pressure and just not feeling well. SHe thought her leg swelling has increased, given the amount of pain she was having. No fever/chills, chest pain, cough, abdominal pain, nausea/vomiting. CT scan showed a decrease in the left thigh hematoma. She was slightly dehydrated when she came her hemoglobin was 10.7, decreased to 10.3. No evidence of more swelling in the affected area. Potassium was 5.1, the patient received Kayexalate. Stable to go home - Time Spent with Patient Total time spent providing and/or coordinating discharge services: Greater than 30 minutes (40 min) - Discharge Medications Home Medications: Alprazolam [Xanax] 1 mg PO TID PRN 06/26/15 [History] Citalopram [CeleXA] 20 mg PO DAILY 06/26/15 [History] Furosemide [Lasix] 40 mg PO DAILY 06/26/15 [History] Insulin LISPRO [HumaLOG] 5 units SQ TIDWM 06/26/15 [History] Omeprazole [PriLOSEC] 40 mg PO DAILY 06/26/15 [History] Tiotropium [Spiriva] 1 puff IH DAILY 06/26/15 [History] Aspirin 81 mg PO DAILY 02/06/16 [History] Oxycodone HCl/Acetaminophen [Percocet 10-325 mg Tablet] 1 tab PO Q6H PRN [History] Clopidogrel [Plavix] 75 mg PO DAILY #30 tablet 01/02/18 [Rx] Lisinopril [Zestril] 2.5 mg PO DAILY #30 tablet 01/02/18 [Rx] Atorvastatin Calcium [Lipitor] 20 mg PO HS 01/04/18 [History] Allergies/Adverse Reactions: 3 Allergy/AdvReac Type Severity Reaction Status Date / Time Procaine [From Novocain] Allergy Difficulty Verified 01/04/18 08:33 Breathing, SWELLING Date of admission: 01/04/18 04:25 Primary care physician: Alex Tapia Jr, MD - Constitutional Vitals: Temp Pulse Resp BP Pulse Ox 97.7 F 62 17 106/44 100 01/05/18 11:02 01/05/18 11:02 01/05/18 11:02 01/05/18 11:02 01/05/18 11:02 General appearance: Present: A&O X 3, answers questions appropriately - Head Head exam: Present: atraumatic, normocephalic - Eye Eye exam: Present: PERRL, conjuntiva pink, sclera anicteric Pupils: Present: PERRL - Neck Neck exam general surgery: Present: supple, trachea midline. Absent: lymphadenopathy - Respiratory Respiratory exam: Present: CTAB. Absent: accessory muscle use, rales, rhonchi, wheezes - Cardiovascular Cardiovascular exam: Present: RRR, +S1, +S2. Absent: diastolic murmur, gallop, rubs, systolic murmur - GI/Abdominal GI/Abdominal exam: Present: normal bowel sounds, soft, no peritoneal signs. Absent: distended, tenderness - Extremities Exam Extremities exam: Present: warm, radial pulses palpable and symmetrical. Absent : calf tenderness, cyanotic, pedal edema - Neurological Exam Neurological exam: Present: CN II-XII intact, oriented X3, no focal deficits. Absent: pronater drift, facial droop, speech deficit - Skin Skin exam: Present: dry Additional comments: Large area of ecchymosis in the left inner lateral thigh - Patient Status Disposition: Home, Self-Care Condition: Good Overall status at discharge: patient is back to baseline - Discharge Instructions Instructions: Heart Failure (DC), Pacemaker (DC) Follow Up With: lAex Tapia Jr, MD [Primary Care Provider] - (web request was sent, however if you do not hear from your PCP by Tuesday morning please call and schedule a hospital follow with in 5-7 days. Thank you!) - Diet and Activity Activity: increase activity as tolerated
[2018-01-05 12:04] LABS: Hematocrit 31.6 % (35.3-44.9); Hemoglobin 10.3 g/dL (11.5-15.4)
== END 2018-01-05 13:35 | disposition home or self-care (01) ==
LOC: EMEROO 00:40 → 2ANU 00:40
PROVIDERS: ADMIT Internal Medicine; ATTEND Internal Medicine

== ENCOUNTER 2018-01-18 11:22 | Observation (INO) ==
[2018-01-18] MEDS ORDERED: *HR* OxyCODONE/APAP 5/325 TABLET PO ONE (12:11)
--- NOTE | 2018-01-18 12:13 | Emergency Department Note ---
Disposition Clinical Impression: Hematoma Superficial bruising of thigh Qualifiers: Encounter type: initial encounter Laterality: left Qualified Code(s): S70.12XA - Contusion of left thigh, initial encounter Disposition: Admitted As Inpatient Condition: Good Referrals: Alex Tapia Jr, MD [Primary Care Provider] - Time of Disposition: 21:35 General Adult HPI - General Chief complaint: ED General Medical Stated complaint: Hematoma Groin area Time Seen by Provider: 01/18/18 11:59 Source: patient Mode of arrival: ambulatory Limitations: no limitations Nursing Notes Reviewed: Yes Vital Signs Reviewed: Yes - History of Present Illness HPI Narrative: Patient is a 57-year-old female that presents the emergency department for ecchymosis and painful left lower extremity. She states that approximately 2 weeks ago she had a heart catheter and then 3-4 days ago she started having some swelling and ecchymosis of the proximal left lower extremity. She states it is progressively gotten worse and more painful. Patient states that the ecchymosis is been spreading down her leg and her leg has been progressively been getting larger and more painful. She states that the pain is a 10 out of 10 and is made worse any time it is touched or when she walks. Pain Scale: 9 - Related Data Home Medications Medication Instructions Recorded Confirmed ALPRAZolam [Xanax 1 MG Tablet] 1 mg PO TID PRN 01/18/18 01/18/18 Aspirin [Lo-Dose Aspirin EC] 81 mg PO DAILY 01/18/18 01/18/18 Atorvastatin Calcium [Lipitor] 20 mg PO HS 01/18/18 01/18/18 Carvedilol 6.25 mg PO BID 01/18/18 01/18/18 Citalopram [CeleXA] 20 mg PO DAILY 01/18/18 01/18/18 Clopidogrel [Plavix] 75 mg PO DAILY 01/18/18 01/18/18 Furosemide [Lasix] 40 mg PO DAILY 01/18/18 01/18/18 Insulin LISPRO [HumaLOG] 5 units SQ TID 01/18/18 01/18/18 Lisinopril [Zestril] 5 mg PO DAILY 01/18/18 01/18/18 Oxycodone HCl/Acetaminophen 1 tab PO Q6H PRN 01/18/18 01/18/18 [Percocet 5-325 mg Tablet] Tiotropium [Spiriva] 18 mcg IH DAILY 01/18/18 01/18/18 hydrOXYzine pamoate [HydrOXYzine 25 mg PO TID PRN 01/18/18 01/18/18 Pamoate] Allergies Allergy/AdvReac Type Severity Reaction Status Date / Time Procaine [From Novocain] Allergy Difficulty Verified 01/04/18 08:33 Breathing, SWELLING Cardiovascular: Denies: chest pain Respiratory: Denies: dyspnea Gastrointestinal: Denies: abdominal pain Musculoskeletal: Reports: other (Or extremity pain) Hematological/Lymphatic: Reports: other (bruising over the left groin and left lower extremity) Past Medical History - Past Medical History Medical history: Reports: CHF, COPD, coronary artery disease, diabetes, myocardial infarction, TIA Surgical history: Reports: other (vascular surgery) Psychiatric history: Reports: anxiety, depression - Social History Smoking Status: Current every day smoker Smokeless Tobacco Status: No Alcohol use: Reports: none Drug use: Reports: marijuana Physical Exam - General Limitations: no limitations General appearance: alert, in no apparent distress - Head Head exam: atraumatic, normocephalic - Eye Eye exam: Present: normal appearance - Neck Neck exam: Present: normal inspection, full ROM, trachea midline - Respiratory Respiratory exam: Present: normal lung sounds bilaterally. Absent: respiratory distress, wheezes - Cardiovascular Cardiovascular exam: Present: regular rate, normal rhythm, normal heart sounds, +S1, +S2 - Abdominal Exam Abdominal exam: Present: soft, Non-Tender. Absent: tenderness - Extremities Exam Extremities exam: Present: tenderness (To the left lower extremity.), other ( She has a significant amount of ecchymosis to the left lower extremity including swelling to the medial aspect of the upper thigh.). Absent: normal inspection, full ROM - Neurological Exam Neurological exam: Present: alert, oriented X3 - Psychiatric Psychiatric exam: Present: normal affect, normal mood - Skin Skin exam: Present: warm, dry, intact Course Vital Signs Temperature 98.1 F 01/18/18 11:27 Pulse Rate 74 01/18/18 11:27 Respiratory Rate 20 01/18/18 11:27 Blood Pressure 155/76 01/18/18 11:27 O2 Sat by Pulse Oximetry 95 01/18/18 11:27 Temperature 98.1 F 01/18/18 11:35 Pulse Rate 75 01/18/18 20:58 Respiratory Rate 20 01/18/18 20:58 Blood Pressure 117/73 01/18/18 20:58 O2 Sat by Pulse Oximetry 94 01/18/18 20:58 Oxygen Delivery Oxygen Delivery Room Air Medical Decision Making - MDM Narrative Medical decision making narrative: Due to the patient presenting to the emergency department after a recent catheter and having ecchymosis and swelling to the left lower extremity to the site of the catheterization there is concern for possible blood clot versus pseudoaneurysm. We will obtain basic laboratory tests including CBC, BMP and coags. We will also obtain ultrasound imaging of venous and arterial. Patient is laboratory testing was unremarkable. The service tech did inform us that there was no evidence of DVT at this time and did not see any distal occlusions but stated she was not able to rule out blockage proximally in the iliacs. Due to inability to rule out any blockages proximal to the groin we will obtain a CTA of the abdomen and pelvis with runoff to evaluate for possible occlusive disease. CTA of the abdomen and pelvis showed a large hematoma within the left leg that appears to be getting larger and liquefying. We have called and spoke with the vascular surgeon who recommended that the patient be admitted to the hospital due to the patient having pain. At the request of the hospitalist cardiology has also been notified and consult and. Patient has been accepted the hospital for further evaluation and management by medicine. - Medical Records Medical records reviewed: Yes I reviewed the patient's medical records. - Lab Data Lab results reviewed: Yes I reviewed the patient's lab results. Result diagrams: 01/18/18 21:03 01/18/18 12:39 Lab Results 01/18/18 01/18/18 01/18/18 Range/Units 12:39 12:39 12:39 WBC 6.8 (4.3-11.1) K/mcL RBC 4.12 (3.82-4.97) M/mcL Hgb 12.0 (11.5-15.4) g/dL Hct 36.1 (35.3-44.9) % MCV 87.6 (83.0-100.0) fL MCH 29.1 (28.0-33.3) pg MCHC 33.2 (31.6-35.5) g/dL RDW 17.3 H (11.5-14.5) % Plt Count 197 (140-400) K/mcL MPV 9.1 L (9.4-12.4) fL Immature Gran % (0-4) % Seg Neutrophils % % Lymphocytes % % Monocytes % % Eosinophils % % Basophils % % Neutrophils # (1.6-8.9) K/mcL Lymphocytes # (0.6-4.6) K/mcL Monocytes # (0.0-1.3) K/mcL Eosinophils # (0.0-0.6) K/mcL Basophils # (0.0-0.2) K/mcL PT 11.2 (9.4-12.1) Seconds INR 1.0 APTT 31.1 (26.0-36.0) Seconds Sodium 137 (136-145) mEq/L Potassium 5.0 (3.5-5.1) mEq/L Chloride 106 (98-107) mEq/L Carbon Dioxide 29 (23-29) mEq/L BUN 21 H (6-20) mg/dL Creatinine 0.70 (0.60-1.20) mg/dL Est GFR ( Amer) > 60 (> 60) Est GFR (Non-Af Amer) > 60 (> 60) BUN/Creatinine Ratio 30 H (6-26) Glucose 279 H (70-105) mg/dL Calculated Osmolality 297 (280-300) Calcium 8.7 (8.6-10.3) mg/dL //18 Range/Units 21:03 WBC 5.9 (4.3-11.1) K/mcL RBC 3.93 (3.82-4.97) M/mcL Hgb 11.1 L (11.5-15.4) g/dL Hct 34.3 L (35.3-44.9) % MCV 87.3 (83.0-100.0) fL MCH 28.2 (28.0-33.3) pg MCHC 32.4 (31.6-35.5) g/dL RDW 17.3 H (11.5-14.5) % Plt Count 161 (140-400) K/mcL MPV 8.7 L (9.4-12.4) fL Immature Gran % 0.3 (0-4) % Seg Neutrophils % 72.1 % Lymphocytes % 19.5 % Monocytes % 7.4 % Eosinophils % 0.0 % Basophils % 0.7 % Neutrophils # 4.3 (1.6-8.9) K/mcL Lymphocytes # 1.2 (0.6-4.6) K/mcL Monocytes # 0.4 (0.0-1.3) K/mcL Eosinophils # 0.0 (0.0-0.6) K/mcL Basophils # 0.0 (0.0-0.2) K/mcL PT (9.4-12.1) Seconds INR APTT (26.0-36.0) Seconds Sodium (136-145) mEq/L Potassium (3.5-5.1) mEq/L Chloride (98-107) mEq/L Carbon Dioxide (23-29) mEq/L BUN (6-20) mg/dL Creatinine (0.60-1.20) mg/dL Est GFR ( Amer) (> 60) Est GFR (Non-Af Amer) (> 60) BUN/Creatinine Ratio (6-26) Glucose (70-105) mg/dL Calculated Osmolality (280-300) Calcium (8.6-10.3) mg/dL - Radiology Data Radiology results reviewed: Yes I reviewed the patient's radiology results. Aorta w/Runoff CTA 01/18/18 15:08 IMPRESSION: 1. No evidence of abdominal aortic aneurysm. 2. Mild plaque is noted in the upper abdominal aorta with calcifications at the origin of the superior mesenteric artery, inferior mesenteric artery and right renal artery. 3. Moderate plaque in the distal abdominal aorta most significant in the iliac bifurcation. 4. Moderate plaque both distal superficial femoral arteries. 5. Moderate plaque right popliteal artery and right peroneal artery. 6. Moderate plaque left popliteal artery and calcified plaque at the origin of the left posterior tibial artery. D/ / 01/18/2018 19:51:55 Edna Alfaro MD / ariel Interpreting Provider: Edna Alfaro MD
--- NOTE | 2018-01-18 12:18 | Emergency Department Note ---
Disposition Clinical Impression: Superficial bruising of thigh Disposition: Home, Self-Care Condition: Good Referrals: Alex Tapia Jr, MD [Primary Care Provider] - Forms: ED Satisfaction Letter, Work/School Release General Adult HPI - General Chief complaint: ED General Medical Stated complaint: Hematoma Groin area Time Seen by Provider: 01/18/18 11:59 Source: patient Limitations: no limitations Nursing Notes Reviewed: Yes Vital Signs Reviewed: Yes - History of Present Illness Pain Scale: 9 - Related Data Home Medications Medication Instructions Recorded Confirmed ALPRAZolam [Xanax 1 MG Tablet] 1 mg PO TID PRN 01/18/18 01/18/18 Aspirin [Lo-Dose Aspirin EC] 81 mg PO DAILY 01/18/18 01/18/18 Atorvastatin Calcium [Lipitor] 20 mg PO HS 01/18/18 01/18/18 Carvedilol 6.25 mg PO BID 01/18/18 01/18/18 Citalopram [CeleXA] 20 mg PO DAILY 01/18/18 01/18/18 Clopidogrel [Plavix] 75 mg PO DAILY 01/18/18 01/18/18 Furosemide [Lasix] 40 mg PO DAILY 01/18/18 01/18/18 Insulin LISPRO [HumaLOG] 5 units SQ TID 01/18/18 01/18/18 Lisinopril [Zestril] 5 mg PO DAILY 01/18/18 01/18/18 Oxycodone HCl/Acetaminophen 1 tab PO Q6H PRN 01/18/18 01/18/18 [Percocet 5-325 mg Tablet] Tiotropium [Spiriva] 18 mcg IH DAILY 01/18/18 01/18/18 hydrOXYzine pamoate [HydrOXYzine 25 mg PO TID PRN 01/18/18 01/18/18 Pamoate] Allergies Allergy/AdvReac Type Severity Reaction Status Date / Time Procaine [From Novocain] Allergy Difficulty Verified 01/04/18 08:33 Breathing, SWELLING Past Medical History - Past Medical History Medical history: Reports: CHF, COPD, coronary artery disease, diabetes, myocardial infarction, TIA Surgical history: Reports: other (vascular surgery) Psychiatric history: Reports: anxiety, depression - Social History Smoking Status: Current every day smoker Smokeless Tobacco Status: No Alcohol use: Reports: none Drug use: Reports: marijuana Physical Exam - General Limitations: no limitations General appearance: alert, in no apparent distress Course Vital Signs Temperature 98.1 F 01/18/18 11:27 Pulse Rate 74 01/18/18 11:27 Respiratory Rate 20 01/18/18 11:27 Blood Pressure 155/76 01/18/18 11:27 O2 Sat by Pulse Oximetry 95 01/18/18 11:27 Temperature 98.1 F 01/18/18 11:35 Pulse Rate 75 01/18/18 20:58 Respiratory Rate 20 01/18/18 20:58 Blood Pressure 117/73 01/18/18 20:58 O2 Sat by Pulse Oximetry 94 01/18/18 20:58 Oxygen Delivery Oxygen Delivery Room Air Medical Decision Making - Lab Data Result diagrams: 01/18/18 12:39 01/18/18 12:39 Lab Results 01/18/18 01/18/18 01/18/18 Range/Units 12:39 12:39 12:39 WBC 6.8 (4.3-11.1) K/mcL RBC 4.12 (3.82-4.97) M/mcL Hgb 12.0 (11.5-15.4) g/dL Hct 36.1 (35.3-44.9) % MCV 87.6 (83.0-100.0) fL MCH 29.1 (28.0-33.3) pg MCHC 33.2 (31.6-35.5) g/dL RDW 17.3 H (11.5-14.5) % Plt Count 197 (140-400) K/mcL MPV 9.1 L (9.4-12.4) fL PT 11.2 (9.4-12.1) Seconds INR 1.0 APTT 31.1 (26.0-36.0) Seconds Sodium 137 (136-145) mEq/L Potassium 5.0 (3.5-5.1) mEq/L Chloride 106 (98-107) mEq/L Carbon Dioxide 29 (23-29) mEq/L BUN 21 H (6-20) mg/dL Creatinine 0.70 (0.60-1.20) mg/dL Est GFR ( Amer) > 60 (> 60) Est GFR (Non-Af Amer) > 60 (> 60) BUN/Creatinine Ratio 30 H (6-26) Glucose 279 H (70-105) mg/dL Calculated Osmolality 297 (280-300) Calcium 8.7 (8.6-10.3) mg/dL Attestation Statement - Attestation Attestation: I examined this patient and my medical decision-making was reviewed with the Resident Physician. I agree with the documented findings, disposition and treatment plan as described except to the extent set forth below. Patient presents to the ED with a chief complaint of left leg pain. Patient is 2 weeks status post heart catheterization here at [place]. She states since the catheter she has had a growing hematoma. It is painful. She saw her PCP today who sent her over to rule out a blood clot. On examination she has a moderate amount of swelling to the left eye. Diffuse ecchymosis. Swelling extends all the way to the foot. The foot is pink and warm with palpable pulse. Plan. Arterial and venous ultrasound imaging. Pain control basic labs. Patient has a large hematoma in the thigh. No pseudoaneurysm. No extravasation of contrast. No DVT. She has been discussed with vascular who will see her in consult. Admitted for pain control. Cardiology consult as well per hospitalist request. Aorta w/Runoff CTA 01/18/18 15:08 IMPRESSION: 1. No evidence of abdominal aortic aneurysm. 2. Mild plaque is noted in the upper abdominal aorta with calcifications at the origin of the superior mesenteric artery, inferior mesenteric artery and right renal artery. 3. Moderate plaque in the distal abdominal aorta most significant in the iliac bifurcation. 4. Moderate plaque both distal superficial femoral arteries. 5. Moderate plaque right popliteal artery and right peroneal artery. 6. Moderate plaque left popliteal artery and calcified plaque at the origin of the left posterior tibial artery. D/ / 01/18/2018 19:51:55 Edna Alfaro MD / ariel Interpreting Provider: Edna Alfaro MD
[2018-01-18 13:01] LABS: Hematocrit 36.1 % (35.3-44.9); Mean Corpuscular HGB Conc 33.2 g/dL (31.6-35.5); Mean Corpuscular Hemoglobin 29.1 pg (28.0-33.3); Mean Corpuscular Volume 87.6 fL (83.0-100.0); Mean Platelet Volume 9.1 fL (9.4-12.4); Platelet Count 197 K/mcL (140-400); Red Blood Count 4.12 M/mcL (3.82-4.97); Red Cell Distribution Width 17.3 % (11.5-14.5)
[2018-01-18 13:06] LABS: Prothrombin Time 11.2 Seconds (9.4-12.1)
[2018-01-18 13:09] LABS: Activated Partial Thrombo Time 31.1 Seconds (26.0-36.0)
[2018-01-18 13:38] LABS: BUN/Creatinine Ratio 30 (6-26); Blood Urea Nitrogen 21 mg/dL (6-20); Calcium 8.7 mg/dL (8.6-10.3); Carbon Dioxide 29 mEq/L (23-29); Chloride 106 mEq/L (98-107); Glucose 279 mg/dL (70-105); Osmolality,Calculated 297 (280-300); Sodium 137 mEq/L (136-145); eGFR For African Americans > 60 (> 60); eGFR For Non-African Americans > 60 (> 60)
[2018-01-18] MEDS ORDERED: Isovue-370 500 ML INFUS..BTL IV ONE (15:08)
[2018-01-18] MEDS ORDERED: *HR* OxyCODONE/APAP 10/325 TABLET PO ONE (19:25)
[2018-01-18] MEDS ORDERED: *HR* Dextrose 50 % in Water (Syg) 50 ML SYRINGE IVP PRN (21:02)
[2018-01-18] MEDS ORDERED: D5% in Water 1,000 ML IVC PRN (21:02)
[2018-01-18] MEDS ORDERED: Dextrose Gel 15 GM/37.5 ML TUBE PO PRN ×2 (21:02)
[2018-01-18] MEDS ORDERED: Naloxone 0.4 MG/ML INJ IVP PRN (21:09)
[2018-01-18 21:23] LABS: Basophils % 0.7 %; Hematocrit 34.3 % (35.3-44.9); Hemoglobin 11.1 g/dL (11.5-15.4); Immature Granulocytes % 0.3 % (0-4); Lymphocytes # 1.2 K/mcL (0.6-4.6); Lymphocytes % 19.5 %; Mean Corpuscular HGB Conc 32.4 g/dL (31.6-35.5); Mean Corpuscular Hemoglobin 28.2 pg (28.0-33.3); Mean Corpuscular Volume 87.3 fL (83.0-100.0); Mean Platelet Volume 8.7 fL (9.4-12.4); Monocytes # 0.4 K/mcL (0.0-1.3); Monocytes % 7.4 %; Neutrophils # 4.3 K/mcL (1.6-8.9); Platelet Count 161 K/mcL (140-400); Red Blood Count 3.93 M/mcL (3.82-4.97); Red Cell Distribution Width 17.3 % (11.5-14.5); Segmented Neutrophils % 72.1 %
--- NOTE | 2018-01-18 21:23 | Vascular/Endovasc Consult Note ---
Date of Encounter: 01/18/18 Time of Encounter: 19:50 Assessment and Plan (1) Hematoma Current Visit: Yes Status: Chronic The patient has a large left thigh hematoma which remains symptomatic. This hematomas secondary to a left heart catheterization was performed on 12/29/[address] elevation myocardial infarction. Compared to her previous CT scan the hematoma is larger. There is no evidence of ongoing blood loss. There is no pseudoaneurysm. Given the size of the hematoma the patient will be admitted. She will be given intravenous pain control. She will be assessed in the morning in order to determine if she has symptomatic relief. She has persistent symptoms evacuation of her hematoma may be required. The risks benefits and alternatives of the procedure were discussed and answered. She will be nothing by mouth after midnight for possible surgery tomorrow. This patient was discussed with Dr. Rapp on the Hospitalist Service. I appreciate his assistance in the care of this patient. 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 of insulin; Z79.4 - retirement (current) use of insulin; Z79.4 - truck terminal manager (current ) use of insulin; Z79.4 - retirement (current) use of insulin (3) Cardiomyopathy Current Visit: Yes Status: Chronic Qualifiers: Cardiomyopathy type: unspecified Qualified Code(s): I42.9 - Cardiomyopathy , unspecified (4) COPD (chronic obstructive pulmonary disease) Current Visit: Yes Status: Chronic Qualifiers: COPD type: unspecified COPD Qualified Code(s): J44.9 - Chronic obstructive pulmonary disease, unspecified (5) Chronic anemia Current Visit: Yes Status: Chronic The patient has chronic anemia. She is hemodynamically stable without evidence of ongoing blood loss. - History of Present Illness Consult date: 01/18/18 Requesting physician: Anthony Lagunas Consult reason: Left thigh hematoma Chief complaint: Left thigh pain and swelling History of present illness: Ms. Gomez is a 57 year old female with a history of coronary artery disease and diabetes. She was seen on 12/29/2017 in the emergency room with acute chest pain. She underwent a left heart catheterization. She does not require stent placement at that time, however she was noted to have an ejection fraction of 20-25%. After procedure she developed a large left thigh hematoma which was treated with compression. The patient was admitted to the intensive care unit and received 6 units of packed red blood cells. She ultimately was discharged to home in stable condition. She returned to the emergency room tonight with complaints of progressive left thigh pain and tenderness. Significant ecchymosis as well. She denies any chest pain or shortness of breath. Past Med Surg Social Fam HX - Past Medical History Medical history: CHF, COPD, coronary artery disease, diabetes, myocardial infarction, TIA Psychiatric history: anxiety, depression - Past Surgical History Surgical History: other (vascular surgery) - Social History Smoking Status: Current every day smoker Smokeless Tobacco Status: No Alcohol use: none Drug use: marijuana - Family History Father Family Member Ethnicity: Non- Living Status: Hx Family Cardiac Disorders: Yes (Quad bypass, HTN, HLD) Mother Family Member Ethnicity: Non- Living Status: Still Living Hx Family Cardiac Disorders: Yes (Afib) Brother Family Member Ethnicity: Non- Living Status: Still Living Medications and Allergies ALPRAZolam [Xanax 1 MG Tablet] 1 mg PO TID PRN 01/18/18 [History] Aspirin [Lo-Dose Aspirin EC] 81 mg PO DAILY 01/18/18 [History] Atorvastatin Calcium [Lipitor] 20 mg PO HS 01/18/18 [History] Carvedilol 6.25 mg PO BID 01/18/18 [History] Citalopram [CeleXA] 20 mg PO DAILY 01/18/18 [History] Clopidogrel [Plavix] 75 mg PO DAILY 01/18/18 [History] Furosemide [Lasix] 40 mg PO DAILY 01/18/18 [History] Insulin LISPRO [HumaLOG] 5 units SQ TID 01/18/18 [History] Lisinopril [Zestril] 5 mg PO DAILY 01/18/18 [History] Oxycodone HCl/Acetaminophen [Percocet 5-325 mg Tablet] 1 tab PO Q6H PRN [History] Tiotropium [Spiriva] 18 mcg IH DAILY 01/18/18 [History] hydrOXYzine pamoate [HydrOXYzine Pamoate] 25 mg PO TID PRN 01/18/18 [History] 3 Allergy/AdvReac Type Severity Reaction Status Date / Time Procaine [From Novocain] Allergy Difficulty Verified 01/04/18 08:33 Breathing, SWELLING All Systems Review: The remainder of the systems were reviewed and are negative Exam Vital Signs, Last 4 Hours Pulse Resp BP Pulse Ox 01/18/18 20:58 75 20 117/73 94 01/18/18 19:41 69 18 158/59 General: Present: Conversant, No Apparent Distress HEENT: Present: Pupils equal Neck: Present: JVD Cardiac: Present: Reg Rate and Rhythm, Normal S1 and S2 Lungs: Present: Normal Breath Sounds Neuro: Present: Alert and responsive, No focal deficits noted, Motor nerves grossly intact, Sensory nerves grossly intact Abdomen: Present: Soft, Non-tender Vascular: Present: Normal capillary refill. Absent: Cyanosis Skin: Present: Other (Significant ecchymosis is seen on the left inguinal region and thigh along the medial aspect, no pulsatile mass, large hematoma is palpable) Consult Discharge Plan - Plan Referrals: Alex Tapia Jr, MD [Primary Care Provider] -
[2018-01-18] MEDS ORDERED: *HR* OxyCODONE Immed Rel 5 MG TABLET PO PRN (21:31)
[2018-01-18] MEDS ORDERED: Ondansetron 4 MG/2 ML VIAL IVP PRN (21:31)
[2018-01-18] MEDS ORDERED: Acetaminophen 325 MG TABLET PO PRN (21:31)
[2018-01-18] MEDS ORDERED: OXYCODONE Oral CONC 10 MG/0.5 ML ORAL.SYG SL PRN (21:31)
[2018-01-18] MEDS ORDERED: hydrOXYzine pamoate 25 MG CAPSULE PO PRN (21:36)
[2018-01-18] MEDS ORDERED: ALPRAZolam 1 MG TABLET PO PRN (21:36)
[2018-01-18 21:37] LABS: Estimated Average Glucose 143 mg/dl; Hemoglobin A1C 6.6 %
[2018-01-18] MEDS ORDERED: Albuterol 2.5 MG/3 ML NEBULIZER IH PRN (21:39)
[2018-01-18] MEDS ORDERED: CARVEDILOL 6.25 MG PO SCH (21:45)
--- NOTE | 2018-01-18 22:05 | Internal Med History&Physical ---
Date of Encounter: 01/18/18 Time of Encounter: 20:57 Internal Medicine - H&P: HPI Chief complaint: "Pain in my leg" Admitted From: Emergency Dept Plans for Post Hospital Care: Home History of present illness: Ms. Gomez is a 57 year old white female who presented to ED with worsening pain in left leg. She recently admitted here with left heart catherterization on 12/29/17 for STEMI. Since this procedure, she has had recurrent LLE hematomas. CT scan today shows larger hematoma from baseline. Patient states the pain is "horrible." She currently rates it 5/10, but it was 10/10 upon presentation. She received 5 mg percocet, then another 10 mg percocet, which helped symptoms. I spoke with ED physician who has already spoken with vascular surgery Dr. Dong. Ed physician wants patient admitted for pain control and serial lab monitoring. When I was in room interviewing and examining patient, Dr. Dong also came to see patient. He agrees with monitoring patient overnight and getting pain controlled. He will defer surgery until he evaluates her again tomorrow. I appreciate his recommendations and help in management of this patient. ED physician has also consulted cardiology. Patient has no complaints at this time other than LLE pain. She denies chest pain, fever, chills, nausea, vomiting, or abdominal pain. Past Med Surg Social Fam HX - Past Medical History Attestation: Yes The following information was validated with the patient. Medical history: CHF, COPD, coronary artery disease, diabetes, myocardial infarction, TIA Psychiatric history: anxiety, depression - Past Surgical History Surgical History: other (vascular surgery) - Social History Smoking Status: Current every day smoker Smokeless Tobacco Status: No Alcohol use: none Drug use: marijuana - Family History Father Family Member Ethnicity: Non- Living Status: Hx Family Cardiac Disorders: Yes (Quad bypass, HTN, HLD) Mother Family Member Ethnicity: Non- Living Status: Still Living Hx Family Cardiac Disorders: Yes (Afib) Brother Family Member Ethnicity: Non- Living Status: Still Living - Additional Family History Additional family history: Family history reviewed with patient. Internal Medicine - H&P: Meds ALPRAZolam [Xanax 1 MG Tablet] 1 mg PO TID PRN 01/18/18 [History] Aspirin [Lo-Dose Aspirin EC] 81 mg PO DAILY 01/18/18 [History] Atorvastatin Calcium [Lipitor] 20 mg PO HS 01/18/18 [History] Carvedilol 6.25 mg PO BID 01/18/18 [History] Citalopram [CeleXA] 20 mg PO DAILY 01/18/18 [History] Clopidogrel [Plavix] 75 mg PO DAILY 01/18/18 [History] Furosemide [Lasix] 40 mg PO DAILY 01/18/18 [History] Insulin LISPRO [HumaLOG] 5 units SQ TID 01/18/18 [History] Lisinopril [Zestril] 5 mg PO DAILY 01/18/18 [History] Oxycodone HCl/Acetaminophen [Percocet 5-325 mg Tablet] 1 tab PO Q6H PRN [History] Tiotropium [Spiriva] 18 mcg IH DAILY 01/18/18 [History] hydrOXYzine pamoate [HydrOXYzine Pamoate] 25 mg PO TID PRN 01/18/18 [History] 3 Allergy/AdvReac Type Severity Reaction Status Date / Time Procaine [From Novocain] Allergy Difficulty Verified 01/04/18 08:33 Breathing, SWELLING All Systems PM: A 10-system review of systems was performed and is negative for pertinent findings except as documented above in the HPI. - Constitutional Constitutional: no anorexia, no chills, no fatigue, no fever(s), no falls, no malaise, no weakness, no weight gain, no weight loss - EENT Eyes: no change in vision, no diplopia, no dry eye, no itchy eyes, no loss of vision, no pain, no other visual disturbances Ears: no decreased hearing, no ear pain, no tinnitus Nose, mouth and throat: no bleeding gums, no dry mouth, no dysphagia, no facial pain, no mouth pain, no nasal congestion, no nasal discharge, no nasal obstruction, no sinus pain, no sinus pressure, no sore throat - Cardiovascular Cardiovascular ROS IM: no chest pain, no diaphoresis, no dyspnea, no dyspnea on exertion, no edema, no lightheadedness, no palpitations, no syncope - Respiratory Respiratory: no cough, no dyspnea, no hemoptysis, no wheezing, no chest congestion, no excessive phlegm production - Gastrointestinal Gastrointestinal: no abdominal pain, no bloating, no change in bowel habits, no constipation, no diarrhea, no dysphagia, no heartburn, no hematemesis, no hematochezia, no melena, no nausea, no vomiting - Genitourinary Genitourinary: no change in urinary stream, no dysuria, no flank pain, no urinary frequency, no urinary hesitancy, no urinary incontinence, no urinary urgency - Musculoskeletal Musculoskeletal ROS IM: other (LLE Pain), no arthralgias, no joint swelling, no muscle cramps, no muscle weakness, no myalgias, no neck pain, no numbness, no stiffness, no tingling - Integumentary Integumentary IM: no erythema, no new lesions, no rash, no sores, no jaundice - Neurological Neurological ROS: no abnormal gait, no abnormal hearing, no abnormal movements, no abnormal speech, no behavioral changes, no confusion, no dizziness, no focal weakness, no frequent falls, no vertigo, no weakness - Psychiatric Psychiatric: no anxiety, no confusion, no depression, no irritability, no mood swings - Endocrine Endocrine IM: no cold intolerance, no fatigue, no heat intolerance, no polydipsia, no polyphagia, no polyuria - Hematologic/Lymphatic Hematologic/Lymphatic: no easy bleeding, no easy bruising, no lymphadenopathy - Constitutional Vitals: Temp Pulse Resp BP Pulse Ox 98.1 F 75 20 117/73 94 01/18/18 11:35 01/18/18 20:58 01/18/18 20:58 01/18/18 20:58 01/18/18 20:58 General appearance: Present: cooperative, A&O X 3, pleasant, no acute distress, answers questions appropriately - Head Head exam: Present: atraumatic, normal inspection, normocephalic - Eye Eye exam: Present: EOMI, normal appearance, PERRL. Absent: conjunctival injection, nystagmus, scleral icterus - ENT ENT exam: Present: mucous membranes moist, normal external ear exam, normal oropharynx - Neck Neck exam general surgery: Present: supple, trachea midline. Absent: lymphadenopathy, tenderness, thyromegaly - Respiratory Respiratory exam: Present: CTAB. Absent: accessory muscle use, rales, rhonchi, wheezes Additional comments: Normal WOB - Cardiovascular Cardiovascular exam: Present: RRR, +S1, +S2. Absent: diastolic murmur, gallop, rubs, systolic murmur Additional comments: No BLE edema - GI/Abdominal GI/Abdominal exam: Present: normal bowel sounds, soft. Absent: distended, hepatomegaly, mass, splenomegaly, tenderness - Extremities Exam Extremities exam: Present: full ROM, normal capillary refill, warm. Absent: pedal edema Additional comments: Multiple ecchymoses on LLE from hip to lower leg, moderate hematoma of upper LLE , moderate TTP - Neurological Exam Neurological exam: Present: alert, CN II-XII intact, oriented X3, no focal deficits, strengths equal and symetr throughout. Absent: motor sensory deficit , facial droop, speech deficit - Psychiatric Psychiatric exam: Present: normal affect, normal mood. Absent: agitated, anxious, depressed - Skin Skin exam: Present: dry, intact, warm. Absent: cyanosis Internal Med - H&P Results - Labs CBC & Chem 7: 01/18/18 21:03 01/18/18 12:39 - VTE Reasons for not Prescribing Prophylaxis: Medical contraindication (LLE Hematoma) Documentation of Mechanical Device: Intermittent pneumatic compression device - Assessment and plan (1) Hematoma Current Visit: Yes Status: Chronic Assessment and plan: Possible hematoma of LLE. May or may not be related to recent C. Vascular surgery consulted; appreciate their input. I spoke with Dr. Dong in person. Will observe patient overnight. Monitor serial H/H. Pain control with home PO percocet, and sublinguual oxycodone when NPO. Reevaluate in AM. Will make NPO after midnight for possible surgery by Dr. Dong. (2) Acute pain of left lower extremity Current Visit: Yes Status: Acute Assessment and plan: Like secondary to LLE hematoma/bruising. Pain management as per above. (3) Superficial bruising of thigh Current Visit: Yes Status: Acute Assessment and plan: Management as per above. Qualifiers: Encounter type: initial encounter Laterality: left Qualified Code(s): S70.12XA - Contusion of left thigh, initial encounter (4) COPD (chronic obstructive pulmonary disease) Current Visit: Yes Status: Chronic Assessment and plan: Continue home medications. Will order albuterol nebs PRN SOB. Qualifiers: COPD type: unspecified COPD Qualified Code(s): J44.9 - Chronic obstructive pulmonary disease, unspecified (5) Cardiomyopathy Current Visit: Yes Status: Chronic Assessment and plan: ED has consulted cardiology; appreciate input. Will monitor closely. Continue home medications. Holding aspirin and plavix for now due to acute bleed, but will defer to cardiology Qualifiers: Cardiomyopathy type: unspecified Qualified Code(s): I42.9 - Cardiomyopathy , unspecified (6) Chronic anemia Current Visit: Yes Status: Chronic Assessment and plan: Hgb above baseline right now. Will monitor serial H/H as per above. Holding home aspirin and plavix for now; will defer restarting these to cardiology. (7) Type 2 diabetes mellitus Current Visit: Yes Status: Chronic Assessment and plan: Start accuchecks and SSI QID AC/HS. Qualifiers: Diabetes mellitus fdc insulin use: with fdc use Diabetes mellitus complication status: with hyperglycemia Qualified Code(s): E11.65 - Type 2 diabetes mellitus with hyperglycemia; Z79.4 - FDC (current) use of insulin; Z79.4 - FDC (current) use of insulin; Z79.4 - exterminator termite (current ) use of insulin; Z79.4 - FDC (current) use of insulin (8) DVT prophylaxis Current Visit: No Status: Acute Assessment and plan: SCDs. Will defer anticoagulation due to hematoma and possible worsening of bleed. - Time Spent With Patient Total time spent is greater than 50% in coordination of care (as documented) at patient's floor/unit and/or counseling patient: less than 15 minutes
[2018-01-18] MEDS: Insulin LISPRO 300 UNITS/3 ML VIAL SQ SCH (23:09)
[2018-01-19 02:42] LABS: Basophils # 0.1 K/mcL (0.0-0.2); Eosinophils % 0.2 %; Hematocrit 33.6 % (35.3-44.9); Hemoglobin 10.9 g/dL (11.5-15.4); Immature Granulocytes % 0.4 % (0-4); Lymphocytes # 1.2 K/mcL (0.6-4.6); Lymphocytes % 23.7 %; Mean Corpuscular HGB Conc 32.4 g/dL (31.6-35.5); Mean Corpuscular Hemoglobin 28.5 pg (28.0-33.3); Mean Corpuscular Volume 87.7 fL (83.0-100.0); Mean Platelet Volume 8.7 fL (9.4-12.4); Monocytes # 0.5 K/mcL (0.0-1.3); Neutrophils # 3.3 K/mcL (1.6-8.9); Platelet Count 149 K/mcL (140-400); Red Blood Count 3.83 M/mcL (3.82-4.97); Red Cell Distribution Width 17.2 % (11.5-14.5); Segmented Neutrophils % 64.7 %
[2018-01-19 03:01] LABS: BUN/Creatinine Ratio 30 (6-26); Blood Urea Nitrogen 19 mg/dL (6-20); Calcium 8.2 mg/dL (8.6-10.3); Carbon Dioxide 30 mEq/L (23-29); Chloride 104 mEq/L (98-107); Glucose 101 mg/dL (70-105); Osmolality,Calculated 282 (280-300); Potassium 3.8 mEq/L (3.5-5.1); Sodium 135 mEq/L (136-145); eGFR For African Americans > 60 (> 60); eGFR For Non-African Americans > 60 (> 60)
--- NOTE | 2018-01-19 06:47 | Vascular/Endovas Progress Note ---
Date of Encounter: 01/19/18 Time of Encounter: 06:20 - Assessment and plan (1) Hematoma Current Visit: Yes Status: Chronic The patient has a large left thigh hematoma. Her symptoms have increased overnight. Her hematoma appears more tense and tender. She has had a slight decline in her hemoglobin. She is hemodynamically stable. Given the increased pain and tenderness she will proceed to the operating room for evacuation of her left thigh and inguinal hematoma. The risks, benefits and alternatives were discussed AND answered. The patient extremity understanding and wishes to proceed. 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 She is hemodynamically stable without evidence of ongoing blood loss. - Subjective Interval history: The patient complains of increased left thigh pain and tenderness overnight. She denies chest pain or shortness of breath Vital Signs, Last 4 Hours Temp Pulse Resp BP Pulse Ox 01/19/18 03:20 98.2 F 64 16 126/61 93 - Physical Examination General: Present: Conversant HEENT: Present: Pupils equal Cardiac: Present: Reg Rate and Rhythm Lungs: Present: Normal Breath Sounds Neuro: Present: Alert and responsive, No focal deficits noted Vascular: Present: Normal capillary refill, Edema (Left thigh edema). Absent: Cyanosis Abdomen: Present: Soft Skin: Present: Other (Firm and tender left thigh and inguinal hematoma. Extensive left thigh and inguinal ecchymosis.) - VTE Reasons for not Prescribing Prophylaxis: Medical contraindication (LLE Hematoma) Documentation of Mechanical Device: Intermittent pneumatic compression device Results 01/19/18 02:32 01/19/18 02:32 Lab Results, Last 24 hours 01/19/18 01/19/18 02:32 02:32 WBC 5.1 Hgb 10.9 L Hct 33.6 L Plt Count 149 Sodium 135 L Potassium 3.8 Chloride 104 Carbon Dioxide 30 H BUN 19 Creatinine 0.63 Glucose 101 Calcium 8.2 L Consult Discharge Plan - Plan Referrals: Alex Tapia Jr, MD [Primary Care Provider] -
--- NOTE | 2018-01-19 07:09 | Anesthesia Evaluation PreOp ---
Date of Encounter: 01/19/18 Time of Encounter: 07:15 - Past History Planned Operation: I and D Left Leg Hematoma Cardiac History: [place] (NSTEMI 12-29-2017), CHF (Cardiomyopathy EF 20% on [facility]) Pulmonary History: Smoker, COPD SATURATOR History: TIA Other Medical History: Diabetes Type II Anesthesia History: No Prior Anesthetic Complications : No Alcohol Use: none Drug use: none Medications and Allergies ALPRAZolam [Xanax 1 MG Tablet] 1 mg PO TID PRN 01/18/18 [History] Aspirin [Lo-Dose Aspirin EC] 81 mg PO DAILY 01/18/18 [History] Atorvastatin Calcium [Lipitor] 20 mg PO HS 01/18/18 [History] Carvedilol 6.25 mg PO BID 01/18/18 [History] Citalopram [CeleXA] 20 mg PO DAILY 01/18/18 [History] Clopidogrel [Plavix] 75 mg PO DAILY 01/18/18 [History] Furosemide [Lasix] 40 mg PO DAILY 01/18/18 [History] Insulin LISPRO [HumaLOG] 5 units SQ TID 01/18/18 [History] Lisinopril [Zestril] 5 mg PO DAILY 01/18/18 [History] Oxycodone HCl/Acetaminophen [Percocet 5-325 mg Tablet] 1 tab PO Q6H PRN [History] Tiotropium [Spiriva] 18 mcg IH DAILY 01/18/18 [History] hydrOXYzine pamoate [HydrOXYzine Pamoate] 25 mg PO TID PRN 01/18/18 [History] 3 Allergy/AdvReac Type Severity Reaction Status Date / Time Procaine [From Novocain] Allergy Difficulty Verified 01/04/18 08:33 Breathing, SWELLING - Meds/Allergy Pre-op Review Medications Reviewed: Yes Allergies Reviewed: Yes Anesthesia Results - Labs 01/19/18 02:32 01/19/18 02:32 - Imaging EKG: report reviewed (SR left axis deviation, moderate intraventricular conduction delay) Anesthesia Exam O2 Sat Height 1.65 m Height 1.65 m Weight 75.75 kg Weight 75.75 kg O2 Sat by Pulse Oximetry 93 O2 Sat by Pulse Oximetry 95 O2 Sat by Pulse Oximetry 94 O2 Sat by Pulse Oximetry 96 O2 Sat by Pulse Oximetry 95 O2 Sat by Pulse Oximetry 95 Vital Signs Temp Pulse Resp BP Pulse Ox 98.1 F 74 20 155/76 95 01/18/18 11:27 01/18/18 11:27 01/18/18 11:27 01/18/18 11:27 01/18/18 11:27 Height: 5'5 Weight: 167 lbs NPO (# of Hours): MN Pain Scale: 0 - HEENT Pupil (Motor): Pupils equal, EOMI Mallampati: II Teeth: Edentulous Oral Opening: Greater than 3 - SATURATOR LOC: Oriented SATURATOR Motor: Normal RUE, Normal LUE, Normal RLE, Normal LLE, Normal Face SATURATOR Sensory: Normal: RUE, LUE, RLE, LLE, Face - Cardiac Rhythm: Regular Murmur: None JVD: No Carotid Bruit: No - Pulmonary Breath Sounds: bilateral Clear Respiratory Effort: Symmetrical Anesthesia Assess/Plan ASA Score: 4, E Modified [place] Scale for Level of Consciousness: Cooperative, oriented, and tranquil Anesthetic Plan: General Monitoring Plan: Standard Monitors Recovery Plan: PACU (Discussed GA, agrees to proceed, high risk for anesthesia)
[2018-01-19] MEDS ORDERED: Heparin 1,000 UNITS/500 mL 500 ML ONE (07:14)
[2018-01-19] MEDS ORDERED: Lidocaine -MPF 2% 2 ML VIAL ONE ×2 (07:20→07:38)
[2018-01-19] MEDS ORDERED: Lidocaine -MPF 4% 5 ML AMPUL ONE (07:20)
[2018-01-19] MEDS ORDERED: *HR* Succinylcholine 200 MG/10 ML VIAL IVP ONE (07:20)
[2018-01-19] MEDS ORDERED: *HR* FentaNYL (PF) 100 MCG/2 ML VIAL ONE ×2 (07:21→08:29)
[2018-01-19] MEDS ORDERED: *HR* Midazolam HCl 2 MG/2 ML VIAL ONE (07:22)
[2018-01-19] MEDS ORDERED: *HR* Propofol 200 MG/20 ML VIAL IVP ONE (07:23)
[2018-01-19] MEDS ORDERED: Ipratropium/Albuterol Neb 3 ML ONE (07:25)
[2018-01-19] MEDS ORDERED: Vancomycin 1,000 MG VIAL ONE (07:25)
[2018-01-19] MEDS ORDERED: Ipratropium/Albuterol Neb 3 ML IH ONE ×2 (07:26→09:36)
[2018-01-19] MEDS ORDERED: *HR* Etomidate 40 MG/20 ML VIAL IVP ONE (07:27)
[2018-01-19] MEDS ORDERED: EPHEDrine 50 MG/ML VIAL ONE (07:29)
[2018-01-19] MEDS ORDERED: Acetaminophen IV 1,000 MG/100 ML INFUS..BTL ONE (07:33)
[2018-01-19] MEDS ORDERED: Metoclopramide 10 MG/2 ML VIAL ONE (07:33)
[2018-01-19] MEDS ORDERED: Famotidine 20 MG/2 ML VIAL ONE (07:33)
[2018-01-19] MEDS: Insulin LISPRO 300 UNITS/3 ML VIAL SQ SCH ×3 (07:35→17:06)
[2018-01-19] MEDS ORDERED: *HR* Magnesium Sulfate 1 GM/2 ML VIAL ONE (08:14)
[2018-01-19] MEDS ORDERED: Ondansetron 4 MG/2 ML VIAL ONE (08:29)
[2018-01-19] MEDS ORDERED: Dexamethasone 4 MG/ML VIAL ONE (08:29)
[2018-01-19] MEDS ORDERED: Furosemide 40 MG TABLET PO SCH (09:00)
[2018-01-19] MEDS ORDERED: Tiotropium 18 MCG inhalation IH SCH (09:00)
--- NOTE | 2018-01-19 09:01 | Operative Note ---
Date of procedure: 01/19/18 Pre-op diagnosis: Symptomatic left thigh hematoma Post-op diagnosis: same Procedure: Incision and drainage of left thigh hematoma with evacuation of 500 mL hematoma. Complications: None Anesthesia: GETA Surgeon: Feliciano Dong Was there an sales office assistant present: No Estimated blood loss (cc): 20 Specimen: None Condition: stable Procedure in Detail: Indications: Patient is a 7-year-old female who underwent a left heart catheterization in December 2017. After the procedure she developed a large left groin and thigh hematoma. Initially she was managed nonoperatively. She presented to the emergency room on 01/18/2018 with worsening pain. Her hematomas of the larger without evidence of ongoing blood loss. She remained symptomatic sick the operating room for evacuation of hematoma. Procedure: The patient was identified and in the preoperative area. The risks, benefits and alternatives of the procedure were discussed with her and all questions were answered. The patient was taken to the operating room and placed in the supine position on the operating table. After induction of general endotracheal anesthesia she was cleaned and draped in the normal sterile fashion. An incision was made in the anterior thigh longitudinally with a #15 blade. The process of blunt sharp R dissection the hematoma was encountered. Approximately 500 mL of blood was evacuated from the hematoma. The cavity was irrigated with antibiotic containing saline. Meticulous hemostasis was obtained with electrocautery. The wound was reapproximated with a layer of 2-0 Vicryl followed by a layer of 3-0 Vicryl and 3-0 Monocryl. Sterile dressing was applied and the patient was extubated and taken to the recovery room in stable condition.
[2018-01-19] MEDS ORDERED: *HR* OxyCODONE Immed Rel 5 MG TABLET PO ONE (09:11)
[2018-01-19] MEDS ORDERED: Acetaminophen 325 MG TABLET PO PRN (09:36)
[2018-01-19] MEDS ORDERED: OXYCODONE Oral CONC 10 MG/0.5 ML ORAL.SYG SL PRN (09:36)
[2018-01-19] MEDS ORDERED: hydrOXYzine pamoate 25 MG CAPSULE PO PRN (09:36)
[2018-01-19] MEDS ORDERED: Isovue-370 500 ML INFUS..BTL IV ONE (09:36)
[2018-01-19] MEDS ORDERED: D5% in Water 1,000 ML IVC PRN (09:36)
[2018-01-19] MEDS ORDERED: Dextrose Gel 15 GM/37.5 ML TUBE PO PRN ×2 (09:36)
[2018-01-19] MEDS ORDERED: *HR* Dextrose 50 % in Water (Syg) 50 ML SYRINGE IVP PRN (09:36)
[2018-01-19] MEDS ORDERED: Naloxone 0.4 MG/ML INJ IVP PRN (09:36)
[2018-01-19] MEDS ORDERED: Ondansetron 4 MG/2 ML VIAL IVP PRN (09:36)
[2018-01-19] MEDS ORDERED: Albuterol 2.5 MG/3 ML NEBULIZER IH PRN (09:36)
--- NOTE | 2018-01-19 09:42 | Anesthesia Evaluation Post Op ---
Date of Encounter: 01/19/18 Time of Encounter: 09:41 - Vital Signs Vital Signs: Vital Signs/O2 Sat, Most Current Temp Pulse Resp BP Pulse Ox 98.5 F 63 16 147/56 96 01/19/18 09:31 01/19/18 09:31 01/19/18 09:31 01/19/18 09:31 01/19/18 09:31 - Lungs Lungs: Clear Ascult./Percussion - Airway Airway: Non-obstructed - Cardiovascular Regular Rate - Mental Status Mental Status: Alert & Oriented, Answers Appropriately - Pain Pain Scale: 0 Pain Scale used: Numeric (1 - 10) - Nausea Vomiting Nausea Vomiting: Not Present - Hydration Hydration: Tolerates oral liquids - Discharge PostOp Status: Discharge Patient to home Attestation: I have assessed this patient and find they meet discharge criteria.
--- NOTE | 2018-01-19 10:02 | Event Note ---
Date of Encounter: 01/19/18 Time of Encounter: 10:01 - Cardiology Event Note Patient was admitted for left left hematoma post C 12/29/17. Patient is s/p evacuation of hematoma. Patient denies chest pain, shortness of breath. Euvolemic on exam. Cardiology will sign off and will follow in outpatient setting. Follow up set.
[2018-01-19 10:52] LABS: Basophils % 0.7 %; Hematocrit 36.6 % (35.3-44.9); Hemoglobin 11.5 g/dL (11.5-15.4); Immature Granulocytes % 0.3 % (0-4); Lymphocytes # 0.7 K/mcL (0.6-4.6); Mean Corpuscular HGB Conc 31.4 g/dL (31.6-35.5); Mean Corpuscular Hemoglobin 27.7 pg (28.0-33.3); Mean Corpuscular Volume 88.2 fL (83.0-100.0); Mean Platelet Volume 9.1 fL (9.4-12.4); Monocytes # 0.2 K/mcL (0.0-1.3); Monocytes % 3.6 %; Neutrophils # 4.9 K/mcL (1.6-8.9); Platelet Count 173 K/mcL (140-400); Red Blood Count 4.15 M/mcL (3.82-4.97); Red Cell Distribution Width 17.2 % (11.5-14.5); Segmented Neutrophils % 83.4 %
[2018-01-19] MEDS ORDERED: CeFAZolin Pre 2,000 MG/100 ML 2,000 MG/100 ML BAG IVPB ONE (14:00)
[2018-01-19] MEDS: *HR* OxyCODONE Immed Rel 5 MG TABLET PO PRN ×2 (15:30→21:33)
[2018-01-19] MEDS: *HR* FentaNYL (PF) 100 MCG/2 ML VIAL IVP PRN (17:06)
[2018-01-19] MEDS: ALPRAZolam 1 MG TABLET PO PRN (20:34)
[2018-01-19] MEDS: Insulin DETEMIR 100 UNIT/ML X5UNITS SQ SCH (20:39)
[2018-01-19] MEDS ORDERED: Insulin LISPRO 300 UNITS/3 ML VIAL SQ SCH ×2 (21:00)
--- NOTE | 2018-01-19 21:39 | Internal Med Progress Note ---
Date of Encounter: 01/19/18 Time of Encounter: 13:25 - Assessment and plan (1) Hematoma Status: Acute Assessment and plan: Arterial studies show increase in size in left thigh non-vascular mass/hematoma ; no aneurysms or dissections; vascular surgery on board; this may be secondary to recent [facility] approach; underwent drainage today; continue pain control with PRN PO OXycodone and IV Fentanyl; supportive care; able to ambulate independently; (2) Type 2 diabetes mellitus Status: Chronic Assessment and plan: blood sugars noted to be elevated; increase sliding scale and continue Accuchecks with basal bolus insulin regimen; diabetic diet; Qualifiers: 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: with nursing home use Diabetes mellitus complication status: with hyperglycemia Qualified Code(s): E11.65 - Type 2 diabetes mellitus with hyperglycemia; Z79.4 - longterm (current) use of insulin; Z79.4 - manager long term care (current) use of insulin; Z79.4 - longterm (current ) use of insulin; Z79.4 - longterm (current) use of insulin (3) Cardiomyopathy Status: Chronic Assessment and plan: continue home meds; recent [facility] showed no significant obstruction, no intervention; Qualifiers: Cardiomyopathy type: unspecified Qualified Code(s): I42.9 - Cardiomyopathy , unspecified (4) COPD (chronic obstructive pulmonary disease) Status: Chronic Assessment and plan: not in acute exacerbation; continue PRN bronchodilators; Qualifiers: COPD type: unspecified COPD Qualified Code(s): J44.9 - Chronic obstructive pulmonary disease, unspecified (5) DVT prophylaxis Status: Acute (6) Chronic anemia Status: Chronic (7) Acute pain of left lower extremity Status: Acute - Time Spent With Patient Total time spent is greater than 50% in coordination of care (as documented) at patient's floor/unit and/or counseling patient: - Subjective Interval history: Reports some improvement in left thigh pain and swelling; underwent drainage of hematoma today; no fever/chills; 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 Absent: accessory muscle use, rales, rhonchi, wheezes - Cardiovascular Cardiovascular exam: Present: RRR, +S1, +S2. Absent: diastolic murmur, gallop, rubs, systolic murmur - GI/Abdominal GI/Abdominal exam: Present: normal bowel sounds, soft, no peritoneal signs. Absent: distended, tenderness - Extremities Exam Extremities exam: Present: full ROM (restricted in left knee and hip), pedal edema (tense edema and tenderness over left thigh, mostly in proximal medial area, s/p drainage; surrounding diffuse ecchymoses), warm, radial pulses palpable and symmetrical. Absent: calf tenderness, cyanotic - Neurological Exam Neurological exam: Present: CN II-XII intact, oriented X3, no focal deficits. Absent: pronater drift, facial droop, speech deficit Internal Medicine: Result - Labs CBC & Chem 7: 01/20/18 01:29 01/19/18 02:32 Labs: Short CBC 01/19/18 01/19/18 Range/Units 02:32 10:20 WBC 5.1 5.8 (4.3-11.1) K/mcL Hgb 10.9 L 11.5 (11.5-15.4) g/dL Hct 33.6 L 36.6 (35.3-44.9) % Plt Count 149 173 (140-400) K/mcL Neutrophils # 3.3 4.9 (1.6-8.9) K/mcL BMP 01/19/18 02:32 Sodium 135 L Potassium 3.8 Chloride 104 Carbon Dioxide 30 H BUN 19 Creatinine 0.63 Glucose 101 Calcium 8.2 L - ABG Interpretation ABG results: PT/INR, D-dimer PT 11.2 Seconds (9.4-12.1) 01/18/18 12:39 - VTE Reasons for not Prescribing Prophylaxis: Medical contraindication (LLE Hematoma) Documentation of Mechanical Device: Intermittent pneumatic compression device Consult Discharge Plan - Plan Additional Instructions: May remove bandage and shower on 01/21/2018. Wash wound gently and pat to dry. No tub baths or swimming until 02/03/2018. Call Dr. Dong at [phone] with questions or concerns. Go to nearest emergency room for any new or worsening symptoms. Referrals: Alex Tapia Jr, MD [Primary Care Provider] - 01/26/18 10:00 am Feliciano Dong MD [Partnered Physician] - 02/14/18 4:00 pm Prescriptions: Oxycodone HCl/Acetaminophen [Percocet 5-325 mg Tablet] 1 tab PO Q6H PRN 5 Days # 10 tablet PRN Reason: Pain
[2018-01-20] MEDS: *HR* FentaNYL (PF) 100 MCG/2 ML VIAL IVP PRN ×2 (01:18→06:30)
[2018-01-20 01:44] LABS: Basophils % 0.3 %; Hematocrit 33.7 % (35.3-44.9); Hemoglobin 11.4 g/dL (11.5-15.4); Immature Granulocytes % 0.6 % (0-4); Lymphocytes # 1.1 K/mcL (0.6-4.6); Lymphocytes % 15.5 %; Mean Corpuscular HGB Conc 33.8 g/dL (31.6-35.5); Mean Corpuscular Hemoglobin 29.3 pg (28.0-33.3); Mean Corpuscular Volume 86.6 fL (83.0-100.0); Mean Platelet Volume 8.9 fL (9.4-12.4); Monocytes # 0.4 K/mcL (0.0-1.3); Neutrophils # 5.6 K/mcL (1.6-8.9); Platelet Count 175 K/mcL (140-400); Red Blood Count 3.89 M/mcL (3.82-4.97); Red Cell Distribution Width 16.7 % (11.5-14.5); Segmented Neutrophils % 77.6 %
[2018-01-20] MEDS: *HR* OxyCODONE Immed Rel 5 MG TABLET PO PRN ×2 (03:35→10:01)
[2018-01-20] MEDS: ALPRAZolam 1 MG TABLET PO PRN (05:20)
[2018-01-20] MEDS: Insulin LISPRO 300 UNITS/3 ML VIAL SQ SCH ×2 (08:29→12:00)
[2018-01-20] MEDS: Insulin DETEMIR 100 UNIT/ML X5UNITS SQ SCH (08:30)
[2018-01-20] MEDS ORDERED: Furosemide 40 MG TABLET PO SCH (09:00)
[2018-01-20] MEDS ORDERED: Tiotropium 18 MCG inhalation IH SCH (09:00)
[2018-01-20] MEDS ORDERED: Aspirin Enteric Coated 81 MG Tablet PO SCH (09:00)
--- NOTE | 2018-01-20 09:03 | Vascular/[facility] Progress Note ---
Date of Encounter: 01/20/18 Time of Encounter: 08:30 - Assessment and plan (1) Hematoma Current Visit: Yes Status: Chronic The patient's postoperative day 1 after evacuation of a large left thigh hematoma. She is symptomatically improved. She has no recurrent hematoma. She has ecchymosis as previously noted and expected postoperatively. She reports incisional pain. She has incisional tenderness. She may be discharged today from a vascular perspective. She will follow-up with vascular surgery approximately 4 weeks. 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: with superintendent container terminal use Diabetes mellitus complication status: with hyperglycemia Qualified Code(s): E11.65 - Type 2 diabetes mellitus with hyperglycemia; Z79.4 - terminal manager (current) use of insulin; Z79.4 - senior living (current) use of insulin; Z79.4 - terminal manager (current ) use of insulin; Z79.4 - terminal manager (current) use of insulin (3) Cardiomyopathy Current Visit: Yes Status: Chronic Qualifiers: Cardiomyopathy type: unspecified Qualified Code(s): I42.9 - Cardiomyopathy , unspecified (4) COPD (chronic obstructive pulmonary disease) Current Visit: Yes Status: Chronic Qualifiers: COPD type: unspecified COPD Qualified Code(s): J44.9 - Chronic obstructive pulmonary disease, unspecified (5) Chronic anemia Current Visit: Yes Status: Chronic The patient has chronic anemia. She remained hemodynamically stable without evidence of ongoing blood loss. - Subjective Interval history: The patient reports that she is feeling much better today. She reports incisional pain. She denies chest pain or shortness of breath. Vital Signs, Last 4 Hours Temp Pulse Resp BP Pulse Ox 01/20/18 06:34 98.4 F 70 16 130/63 94 - Physical Examination General: Present: Conversant, No Apparent Distress Cardiac: Present: Reg Rate and Rhythm Lungs: Present: Normal Breath Sounds Neuro: Present: Alert and responsive, No focal deficits noted Vascular: Present: Normal capillary refill, Surgical incisions (Clean dry and intact without erythema or drainage.). Absent: Cyanosis, Edema Skin: Present: Other (Ecchymosis present on the left thigh, no significant hematoma) - VTE Reasons for not Prescribing Prophylaxis: Medical contraindication (LLE Hematoma) Documentation of Mechanical Device: Intermittent pneumatic compression device Results 01/20/18 01:29 05/17/18 02:32 Lab Results, Last 24 hours 01/19/18 01/20/18 10:20 01:29 WBC 5.8 7.2 Hgb 11.5 11.4 L Hct 36.6 33.7 L Plt Count 173 175 Consult Discharge Plan - Plan Additional Instructions: May remove bandage and shower on 01/21/2018. Wash wound gently and pat to dry. No tub baths or swimming until 02/03/2018. Call Dr. Dong at [phone] with questions or concerns. Referrals: Alex Tapia Jr, MD [Primary Care Provider] -
[2018-01-20 11:54] VITALS: BP 142/61
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
== END 2018-01-20 15:05 | disposition home or self-care (01) ==
LOC: EMEROO 11:22 → 3NENU 11:22 → SUATTDRO 21:24 → 3NENU 21:37
PROVIDERS: ADMIT Internal Medicine; ATTEND Internal Medicine

== ENCOUNTER 2019-10-24 22:37 | Observation (INO) ==
[2019-10-24] MEDS ORDERED: *HR* OxyCODONE/APAP 5/325 TABLET PO ONE (23:22)
[2019-10-24 23:37] LABS: Hematocrit 38.8 % (35.3-44.9); Hemoglobin 12.8 g/dL (11.5-15.4); Mean Corpuscular Hemoglobin 28.4 pg (28.0-33.3); Mean Corpuscular Volume 86.2 fL (83.0-100.0); Mean Platelet Volume 8.3 fL (9.4-12.4); Platelet Count 177 K/mcL (140-400); Red Cell Distribution Width 14.6 % (11.5-14.5); White Blood Count 6.4 K/mcL (4.3-11.1)
[2019-10-24 23:57] LABS: BUN/Creatinine Ratio 39 (6-26); Blood Urea Nitrogen 38 mg/dL (6-20); Calcium 8.7 mg/dL (8.6-10.3); Carbon Dioxide 28 mEq/L (23-29); Chloride 102 mEq/L (98-107); Glucose 54 mg/dL (70-105); Osmolality,Calculated 283 (280-300); Potassium 5.5 mEq/L (3.5-5.1); Sodium 133 mEq/L (136-145); eGFR For African Americans > 60 (> 60); eGFR For Non-African Americans 59 (> 60)
[2019-10-25] MEDS ORDERED: Aspirin 81 MG TAB.CHEW PO STA (00:32)
[2019-10-25] MEDS ORDERED: Naloxone 0.4 MG/ML INJ IVP PRN (01:24)
[2019-10-25] MEDS ORDERED: Dextrose Gel 15 GM/37.5 ML TUBE PO PRN ×2 (01:27)
[2019-10-25] MEDS ORDERED: D5% in Water 1,000 ML IVC PRN (01:27)
[2019-10-25] MEDS ORDERED: *HR* Dextrose 50 % in Water (Syg) 50 ML SYRINGE IVP PRN (01:27)
[2019-10-25] MEDS: ALPRAZolam 1 MG TABLET PO SCH ×2 (03:11→14:36)
[2019-10-25] MEDS: 0.9 % Sodium Chloride 1,000 ML IVC SCH ×2 (03:13→18:15)
[2019-10-25] MEDS ORDERED: *HR* Heparin 5,000 UNIT/ML VIAL SQ SCH (06:00)
[2019-10-25 07:07] LABS: Basophils % 0.5 %; Hematocrit 37.1 % (35.3-44.9); Hemoglobin 12.3 g/dL (11.5-15.4); Immature Granulocytes % 0.4 % (0-4); Lymphocytes # 1.2 K/mcL (0.6-4.6); Lymphocytes % 15.6 %; Mean Corpuscular HGB Conc 33.2 g/dL (31.6-35.5); Mean Corpuscular Hemoglobin 28.3 pg (28.0-33.3); Mean Corpuscular Volume 85.3 fL (83.0-100.0); Mean Platelet Volume 8.8 fL (9.4-12.4); Monocytes # 0.5 K/mcL (0.0-1.3); Monocytes % 6.6 %; Platelet Count 163 K/mcL (140-400); Prothrombin Time 10.9 Seconds (9.4-12.1); Red Blood Count 4.35 M/mcL (3.82-4.97); Red Cell Distribution Width 14.6 % (11.5-14.5); Segmented Neutrophils % 76.9 %; White Blood Count 7.8 K/mcL (4.3-11.1)
[2019-10-25] MEDS: Tiotropium 18 MCG inhalation IH SCH (07:39)
[2019-10-25] MEDS: Aspirin Enteric Coated 81 MG Tablet PO SCH (08:21)
[2019-10-25] MEDS: carvediloL 6.25 MG TABLET PO SCH ×2 (08:21→18:28)
[2019-10-25] MEDS: Insulin LISPRO 300 UNITS/3 ML VIAL SQ SCH ×3 (08:22→17:58)
[2019-10-25] MEDS: Furosemide 40 MG TABLET PO SCH (08:22)
[2019-10-25 09:42] LABS: BUN/Creatinine Ratio 39 (6-26); Blood Urea Nitrogen 37 mg/dL (6-20); Calcium 8.1 mg/dL (8.6-10.3); Carbon Dioxide 23 mEq/L (23-29); Chloride 103 mEq/L (98-107); Chol/HDL Ratio 2.3 (0-4.9); Cholesterol 151 mg/dL (< 200); Glucose 144 mg/dL (70-105); HDL Cholesterol 65 mg/dL (40-59); LDL Cholesterol,Calculated 77 mg/dL (0-99); Magnesium 1.7 mg/dL (1.6-2.6); Osmolality,Calculated 281 (280-300); Phosphorous 4.2 mg/dL (2.7-4.5); Potassium 6.6 mEq/L (3.5-5.1); Sodium 130 mEq/L (136-145); Triglycerides 45 mg/dL (< 150); eGFR For African Americans > 60 (> 60); eGFR For Non-African Americans 60 (> 60)
[2019-10-25 09:43] LABS: Troponin I 0.25 ng/mL (< 0.04)
[2019-10-25] MEDS ORDERED: *HR* Heparin 5,000 UNIT/ML VIAL IVP ONE (09:58)
[2019-10-25] MEDS ORDERED: *HR* Heparin 5,000 UNIT/ML VIAL IVP PRN ×2 (09:58)
[2019-10-25] MEDS ORDERED: Heparin 25,000 UNIT/250 ML D5W 25,000 UNIT/250 ML IV.SOLN IVC SCH (10:00)
[2019-10-25] MEDS ORDERED: Calcium Gluconate 2,000 MG in 0.9 % Sodium Chloride 100 ML IVPB ONE (10:02)
[2019-10-25] MEDS ORDERED: Sodium Bicarbonate 50 MEQ/50 ML VIAL IVP ONE (10:30)
[2019-10-25 11:12] LABS: Amphetamine Screen,Urine Negative ng/mL (Cutoff=1000); Barbiturate Screen,Urine Negative ng/mL (Cutoff=200); Benzodiazepines Screen,Urine Negative ng/mL (Cutoff=200); Cannabinoid Screen,Urine Positive ng/mL (Cutoff = 50); Cocaine Screen,Urine Negative ng/mL (Cutoff= 300); Opiate Screen,Urine Positive ng/mL (Cutoff=300); Phencyclidine Screen,Urine Negative ng/mL (Cutoff=25)
[2019-10-25] MEDS: Calcium Gluconate 1gm/50mL 1 GM/50 ML BAG IVPB SCH ×2 (11:19→12:06)
[2019-10-25] MEDS ORDERED: Furosemide 40 MG/4 ML VIAL IVP ONE ×2 (12:31→14:00)
[2019-10-25 13:13] LABS: Hematocrit 40.2 % (35.3-44.9); Hemoglobin 13.1 g/dL (11.5-15.4); Mean Corpuscular HGB Conc 32.6 g/dL (31.6-35.5); Mean Corpuscular Hemoglobin 27.9 pg (28.0-33.3); Mean Corpuscular Volume 85.7 fL (83.0-100.0); Mean Platelet Volume 8.8 fL (9.4-12.4); Platelet Count 201 K/mcL (140-400); Red Blood Count 4.69 M/mcL (3.82-4.97); Red Cell Distribution Width 14.6 % (11.5-14.5); White Blood Count 7.3 K/mcL (4.3-11.1)
[2019-10-25 13:21] LABS: Prothrombin Time 11.7 Seconds (9.4-12.1)
[2019-10-25 13:23] LABS: Heparin anti-factor XA UFH 1.1 IU/mL (0.30-0.70)
[2019-10-25 13:37] LABS: Potassium 6.2 mEq/L (3.5-5.1)
[2019-10-25 13:38] LABS: Troponin I < 0.03 ng/mL (< 0.04)
[2019-10-25] MEDS ORDERED: Insulin Human Regular 10 UNIT in 0.9 % Sodium Chloride 10 ML IV ONE (17:39)
[2019-10-25] MEDS ORDERED: *HR* Dextrose 50 % in Water (Syg) 50 ML SYRINGE IVP ONE (17:39)
[2019-10-25] MEDS ORDERED: Insulin LISPRO 300 UNITS/3 ML VIAL SQ SCH (21:00)
[2019-10-26] MEDS: ALPRAZolam 1 MG TABLET PO SCH ×2 (02:34→09:01)
[2019-10-26 05:10] LABS: BUN/Creatinine Ratio 36 (6-26); Blood Urea Nitrogen 30 mg/dL (6-20); Calcium 8.1 mg/dL (8.6-10.3); Carbon Dioxide 27 mEq/L (23-29); Chloride 102 mEq/L (98-107); Creatine Kinase 42 Units/L (30-223); Glucose 126 mg/dL (70-105); Osmolality,Calculated 284 (280-300); Sodium 133 mEq/L (136-145); eGFR For African Americans > 60 (> 60); eGFR For Non-African Americans > 60 (> 60)
[2019-10-26] MEDS: Tiotropium 18 MCG inhalation IH SCH (07:42)
[2019-10-26] MEDS ORDERED: *HR* OxyCODONE/APAP 7.5/325 TABLET PO PRN (09:00)
[2019-10-26] MEDS ORDERED: hydrOXYzine pamoate 25 MG CAPSULE PO PRN (09:00)
[2019-10-26] MEDS: Insulin LISPRO 300 UNITS/3 ML VIAL SQ SCH ×2 (09:01→12:54)
[2019-10-26] MEDS: Furosemide 40 MG TABLET PO SCH (09:01)
[2019-10-26] MEDS: carvediloL 6.25 MG TABLET PO SCH (09:01)
[2019-10-26] MEDS: Aspirin Enteric Coated 81 MG Tablet PO SCH (09:01)
[2019-10-26] MEDS ORDERED: Acetaminophen 325 MG TABLET PO PRN (09:14)
[2019-10-26 11:08] VITALS: BP 154/64
[2019-10-27] MEDS ORDERED: amLODIPine 5 MG TABLET PO SCH (09:00)
== END 2019-10-26 14:42 | disposition home or self-care (01) ==
LOC: 3BNU 22:37 → EMEROOARM 22:37 → 3BNU 10-25 02:14
PROVIDERS: ADMIT Internal Medicine; ATTEND Internal Medicine

== ENCOUNTER 2020-09-04 05:38 | Inpatient (IN) ==
[2020-09-04] MEDS ORDERED: Aspirin 81 MG TAB.CHEW PO ONE (06:19)
[2020-09-04 07:47] LABS: INR 1.1; Prothrombin Time 12.3 Seconds (9.4-12.1)
[2020-09-04 07:49] LABS: Activated Partial Thrombo Time 31.8 Seconds (26.0-36.0)
[2020-09-04 07:51] LABS: Basophils % 0.2 %; Hematocrit 48.7 % (35.3-44.9); Hemoglobin 16.5 g/dL (11.5-15.4); Immature Granulocytes % 0.6 % (0-4); Lymphocytes # 0.9 K/mcL (0.6-4.6); Lymphocytes % 5.7 %; Mean Corpuscular HGB Conc 33.9 g/dL (31.6-35.5); Mean Corpuscular Hemoglobin 27.5 pg (28.0-33.3); Mean Platelet Volume 8.9 fL (9.4-12.4); Monocytes # 0.7 K/mcL (0.0-1.3); Monocytes % 4.2 %; Neutrophils # 14.2 K/mcL (1.6-8.9); Platelet Count 276 K/mcL (140-400); Red Blood Count 6.01 M/mcL (3.82-4.97); Red Cell Distribution Width 13.2 % (11.5-14.5); Segmented Neutrophils % 89.3 %; White Blood Count 15.8 K/mcL (4.3-11.1)
[2020-09-04 08:15] LABS: Troponin I 5.67 ng/mL (< 0.04)
[2020-09-04] MEDS ORDERED: *HR* FentaNYL (PF) 100 MCG/2 ML VIAL IVP ONE (08:21)
[2020-09-04] MEDS ORDERED: *HR* Heparin 5,000 UNIT/ML VIAL IVP ONE (08:31)
[2020-09-04] MEDS ORDERED: *HR* Heparin 5,000 UNIT/ML VIAL IVP PRN ×2 (08:31)
[2020-09-04 08:40] LABS: Alanine Aminotransferase 6 Units/L (7-52); Alkaline Phosphatase 81 Units/L (34-104); Aspartate Amino Transferase 27 Units/L (13-39); BUN/Creatinine Ratio 38 (6-26); Bilirubin,Direct 0.2 mg/dL (0.0-0.2); Bilirubin,Indirect 0.7 mg/dL (0.0-1.0); Bilirubin,Total 0.9 mg/dL (0.3-1.0); Blood Urea Nitrogen 41 mg/dL (6-20); Calcium 9.7 mg/dL (8.6-10.3); Carbon Dioxide 22 mEq/L (23-29); Chloride 86 mEq/L (98-107); Ferritin 73 ng/mL (10-120); Globulin 4.1 g/dL (2.4-3.5); Glucose 406 mg/dL (70-105); Lactate Dehydrogenase 276 Units/L (140-271); Magnesium 1.8 mg/dL (1.6-2.6); Osmolality,Calculated 285 (280-300); Phosphorous 3.7 mg/dL (2.7-4.5); Potassium 5.7 mEq/L (3.5-5.1); Sodium 124 mEq/L (136-145); Total Protein 8.1 g/dL (6.4-8.9); eGFR For African Americans > 60 (> 60); eGFR For Non-African Americans 52 (> 60)
[2020-09-04] MEDS ORDERED: Heparin 25,000UNIT/250ML 1/2NS 25,000 UNIT/250 ML IV.SOLN IVC SCH (08:45)
[2020-09-04] MEDS ORDERED: Calcium Gluconate 1,000 MG/10 ML VIAL IVP STA (08:46)
[2020-09-04] MEDS ORDERED: Insulin Human Regular 5 UNIT in 0.9 % Sodium Chloride 10 ML IV ONE (08:46)
[2020-09-04] MEDS ORDERED: Furosemide 40 MG/4 ML VIAL IVP ONE (08:58)
[2020-09-04] MEDS: Nitroglycerin 0.4 MG TAB.SUBL SL SCH ×3 (09:06→09:22)
[2020-09-04] MEDS ORDERED: *HR* Heparin 10,000 UNIT/10 ML VIAL ONE (09:12)
[2020-09-04] MEDS ORDERED: ISOVUE-370 200 ML INFUS..BTL ONE (09:12)
[2020-09-04] MEDS ORDERED: 0.9 % Sodium Chloride 1,000 ML ONE ×2 (09:12→09:17)
[2020-09-04] MEDS ORDERED: Heparin 1,000 UNITS/500 mL 500 ML ONE (09:12)
[2020-09-04] MEDS ORDERED: Nitroglycerin 1,000 MCG/10 ML VIAL IV ONE (09:12)
[2020-09-04 09:15] LABS: Adenovirus Not Detected (Not Detect); Bordetella Pertussis Not Detected (Not Detect); Chlamydophila pneumoniae Not Detected (Not Detect); Coronavirus 229E Not Detected (Not Detect); Coronavirus HKU1 Not Detected (Not Detect); Coronavirus NL63 Not Detected (Not Detect); Coronavirus OC43 Not Detected (Not Detect); Human Metapneumovirus Not Detected (Not Detect); Human Rhinovirus/Enterovirus Not Detected (Not Detect); Influenza A Subtype 2009 H1 Not Detected (Not Detect); Influenza B Not Detected (Not Detect); Mycoplasma pneumoniae Not Detected (Not Detect); Parainfluenza Virus 1 Not Detected (Not Detect); Parainfluenza Virus 2 Not Detected (Not Detect); Parainfluenza Virus 3 Not Detected (Not Detect); Parainfluenza Virus 4 Not Detected (Not Detect); Respiratory Syncytial Virus Not Detected (Not Detect); SARS-CoV-2 Not Detected (Not Detect)
[2020-09-04] MEDS ORDERED: *HR* Midazolam HCl 2 MG/2 ML VIAL ONE (09:24)
[2020-09-04] MEDS ORDERED: *HR* FentaNYL (PF) 100 MCG/2 ML VIAL ONE (09:24)
[2020-09-04 09:27] LABS: Bacteria,Urine Few per hpf (None-Few); Bilirubin,Urine Negative (Negative); Blood,Urine Moderate (Negative); Clarity,Urine Turbid (Clear); Color,Urine Yellow (Yellow); Glucose,Urine (UA) 300 mg/dL (Normal); Hyaline Casts,Urine Few per lpf (None Seen); Ketones,Urine Negative (Negative); Leukocyte Esterase,Urine Negative (Negative); Mucus,Urine Few per lpf (None-Few); Nitrite,Urine Negative (Negative); Protein,Urine >=600 mg/dL (Neg-Trace); RBC,Urine 15-30 per hpf (0-3); Specific Gravity,Urine 1.025 (1.010-1.025); Squamous Epithelial Cell,Urine Few per hpf (None-Few); Urobilinogen,Urine Normal (Normal); WBC,Urine 0-3 per hpf (0-3)
[2020-09-04] MEDS ORDERED: Perflutren Lipid Microsphere 1.3 ML in 0.9 % Sodium Chloride 8.7 ML IVP PRN (09:45)
[2020-09-04] MEDS ORDERED: Naloxone 0.4 MG/ML INJ IVP PRN (10:38)
[2020-09-04] MEDS ORDERED: *HR* Dextrose 50 % in Water (Vial) 50 ML VIAL IVP PRN ×2 (12:12→21:11)
[2020-09-04] MEDS ORDERED: Insulin Human Regular 100 UNIT in 0.9 % Sodium Chloride 100 ML IVC SCH (12:15)
[2020-09-04 12:16] LABS: VBG HCO3 30 mEq/L (21-27); VBG PCO2 49 mmHg (41-51); VBG PH 7.39 pH Units (7.32-7.42); VBG PO2 45 mmHg (25-50)
[2020-09-04] MEDS ORDERED: hydrOXYzine pamoate 25 MG CAPSULE PO PRN (12:54)
[2020-09-04 13:59] LABS: C-Reactive Protein 36 mg/L (Less than 10)
[2020-09-04] MEDS: ALPRAZolam 1 MG TABLET PO PRN (14:55)
[2020-09-04 15:37] LABS: BUN/Creatinine Ratio 41 (6-26); Blood Urea Nitrogen 46 mg/dL (6-20); Calcium 9.1 mg/dL (8.6-10.3); Carbon Dioxide 27 mEq/L (23-29); Chloride 88 mEq/L (98-107); Creatine Kinase 204 Units/L (30-223); Glucose 322 mg/dL (70-105); Osmolality,Calculated 288 (280-300); Potassium 4.5 mEq/L (3.5-5.1); Sodium 127 mEq/L (136-145); eGFR For African Americans > 60 (> 60); eGFR For Non-African Americans 50 (> 60)
[2020-09-04 15:44] LABS: Troponin I 5.24 ng/mL (< 0.04)
[2020-09-04] MEDS ORDERED: 0.9 % Sodium Chloride 250 ML ONE ×2 (15:52→22:01)
[2020-09-04] MEDS: 0.9 % Sodium Chloride 250 ML IVC ONE ×2 (15:53→22:05)
[2020-09-04] MEDS ORDERED: carvediloL 6.25 MG TABLET PO SCH (17:00)
[2020-09-04] MEDS: Insulin LISPRO 300 UNITS/3 ML VIAL SUBQ SCH (17:12)
[2020-09-04] MEDS: carvediloL 6.25 MG TABLET PO SCH (17:12)
[2020-09-04] MEDS: *HR* Heparin 5,000 UNIT/ML VIAL SQ SCH (18:02)
[2020-09-04 19:35] LABS: Calcium 9.1 mg/dL (8.6-10.3); Potassium 4.4 mEq/L (3.5-5.1)
[2020-09-04] MEDS ORDERED: Furosemide 40 MG TABLET PO SCH (21:00)
[2020-09-04] MEDS ORDERED: Furosemide 40 MG/4 ML VIAL IVP SCH (21:00)
[2020-09-04] MEDS ORDERED: Dextrose Gel 15 GM/37.5 ML TUBE PO PRN ×2 (21:11)
[2020-09-04] MEDS ORDERED: D5% in Water 1,000 ML IVC PRN (21:11)
[2020-09-04] MEDS ORDERED: *HR* Midazolam HCl 5 MG/5 ML VIAL IVP ONE (21:25)
[2020-09-04] MEDS ORDERED: Amiodarone Premix 360 MG/200 ML BAG IVC ONE (21:27)
[2020-09-04] MEDS ORDERED: Amiodarone Premix 150 MG/100 ML BAG IVPB ONE (21:29)
[2020-09-05] MEDS: Insulin DETEMIR 100 UNIT/ML X5UNITS SUBQ SCH ×2 (00:52→21:45)
[2020-09-05] MEDS ORDERED: Amiodarone Premix 360 MG/200 ML BAG IVC ONE (03:40)
[2020-09-05 04:49] LABS: Calcium 8.9 mg/dL (8.6-10.3); Potassium 4.5 mEq/L (3.5-5.1)
[2020-09-05 04:53] LABS: Basophils % 0.1 %; Hematocrit 41.5 % (35.3-44.9); Immature Granulocytes % 0.7 % (0-4); Lymphocytes # 1.3 K/mcL (0.6-4.6); Lymphocytes % 7.8 %; Mean Corpuscular HGB Conc 33.3 g/dL (31.6-35.5); Mean Corpuscular Volume 81.2 fL (83.0-100.0); Mean Platelet Volume 9.2 fL (9.4-12.4); Monocytes # 0.9 K/mcL (0.0-1.3); Monocytes % 5.3 %; Neutrophils # 13.8 K/mcL (1.6-8.9); Platelet Count 175 K/mcL (140-400); Red Blood Count 5.11 M/mcL (3.82-4.97); Red Cell Distribution Width 13.4 % (11.5-14.5); Segmented Neutrophils % 86.1 %
[2020-09-05 04:56] LABS: Hemoglobin 13.8 g/dL (11.5-15.4)
[2020-09-05] MEDS: *HR* Heparin 5,000 UNIT/ML VIAL SQ SCH ×2 (06:10→17:11)
[2020-09-05] MEDS: Aspirin 81 MG TAB.CHEW PO SCH (08:08)
[2020-09-05] MEDS: Insulin LISPRO 300 UNITS/3 ML VIAL SUBQ SCH ×7 (08:09→21:49)
[2020-09-05] MEDS: carvediloL 6.25 MG TABLET PO SCH ×2 (08:30→17:11)
[2020-09-05] MEDS ORDERED: lisinopriL 5 MG TABLET PO SCH (09:00)
[2020-09-05] MEDS ORDERED: amLODIPine 5 MG TABLET PO SCH (09:00)
[2020-09-05] MEDS ORDERED: Tiotropium 10 INH DOSE IH SCH (09:00)
[2020-09-05] MEDS ORDERED: 0.9 % Sodium Chloride 250 ML IVC ONE (10:59)
[2020-09-05] MEDS ORDERED: 0.9 % Sodium Chloride 250 ML ONE (11:03)
[2020-09-05] MEDS: predniSONE 20 MG TABLET PO SCH (12:22)
[2020-09-05] MEDS: *HR* Amiodarone 200 MG TABLET PO SCH ×2 (12:52→21:44)
[2020-09-05] MEDS: Nicotine 21 MG PATCH.TD24 TD SCH (14:58)
[2020-09-05] MEDS: ALPRAZolam 1 MG TABLET PO PRN ×2 (15:03→21:45)
[2020-09-05] MEDS: Ipratropium/Albuterol Neb 3 ML IH SCH ×4 (15:34→23:39)
[2020-09-05] MEDS: *HR* OxyCODONE/APAP 7.5/325 TABLET PO PRN (17:12)
[2020-09-06 02:01] LABS: Basophils % 0.1 %; Hematocrit 41.6 % (35.3-44.9); Hemoglobin 13.9 g/dL (11.5-15.4); Immature Granulocytes % 0.5 % (0-4); Lymphocytes # 0.8 K/mcL (0.6-4.6); Lymphocytes % 8.8 %; Mean Corpuscular HGB Conc 33.4 g/dL (31.6-35.5); Mean Corpuscular Hemoglobin 27.9 pg (28.0-33.3); Mean Corpuscular Volume 83.4 fL (83.0-100.0); Mean Platelet Volume 9.4 fL (9.4-12.4); Monocytes # 0.4 K/mcL (0.0-1.3); Monocytes % 4.3 %; Neutrophils # 7.5 K/mcL (1.6-8.9); Platelet Count 156 K/mcL (140-400); Red Blood Count 4.99 M/mcL (3.82-4.97); Red Cell Distribution Width 13.6 % (11.5-14.5); Segmented Neutrophils % 86.3 %; White Blood Count 8.7 K/mcL (4.3-11.1)
[2020-09-06 02:22] LABS: Calcium 8.1 mg/dL (8.6-10.3); Potassium 4.6 mEq/L (3.5-5.1)
[2020-09-06] MEDS: Ipratropium/Albuterol Neb 3 ML IH SCH ×5 (03:57→19:54)
[2020-09-06] MEDS: *HR* OxyCODONE/APAP 7.5/325 TABLET PO PRN (04:19)
[2020-09-06] MEDS: *HR* Heparin 5,000 UNIT/ML VIAL SQ SCH ×2 (06:56→16:59)
[2020-09-06] MEDS: Aspirin 81 MG TAB.CHEW PO SCH (08:36)
[2020-09-06] MEDS: predniSONE 20 MG TABLET PO SCH (08:36)
[2020-09-06] MEDS: Nicotine 21 MG PATCH.TD24 TD SCH (08:37)
[2020-09-06] MEDS: Insulin LISPRO 300 UNITS/3 ML VIAL SUBQ SCH ×7 (08:39→20:17)
[2020-09-06] MEDS: *HR* Amiodarone 200 MG TABLET PO SCH ×2 (10:02→20:23)
[2020-09-06] MEDS: carvediloL 6.25 MG TABLET PO SCH (10:02)
[2020-09-06] MEDS: ALPRAZolam 1 MG TABLET PO PRN ×2 (11:48→20:24)
[2020-09-06 15:35] LABS: Complement C3 86 mg/dL (87-200)
[2020-09-06] MEDS: Albumin 25% 25gram/100mL 25 GM/100 ML IV.SOLN IVPB SCH (16:54)
[2020-09-06] MEDS: Insulin DETEMIR 100 UNIT/ML X5UNITS SUBQ SCH (20:24)
[2020-09-06] MEDS: Metoprolol XL (24 HR) Succ 25 MG TAB.ER.24H PO SCH (20:25)
[2020-09-07] MEDS: Ipratropium/Albuterol Neb 3 ML IH SCH ×7 (00:02→23:09)
[2020-09-07 01:36] LABS: Hematocrit 38.3 % (35.3-44.9); Hemoglobin 12.8 g/dL (11.5-15.4); Immature Granulocytes % 0.4 % (0-4); Lymphocytes # 0.7 K/mcL (0.6-4.6); Lymphocytes % 9.5 %; Mean Corpuscular HGB Conc 33.4 g/dL (31.6-35.5); Mean Corpuscular Hemoglobin 26.8 pg (28.0-33.3); Mean Corpuscular Volume 80.1 fL (83.0-100.0); Monocytes # 0.4 K/mcL (0.0-1.3); Monocytes % 4.7 %; Neutrophils # 6.4 K/mcL (1.6-8.9); Platelet Count 159 K/mcL (140-400); Red Blood Count 4.78 M/mcL (3.82-4.97); Red Cell Distribution Width 13.7 % (11.5-14.5); Segmented Neutrophils % 85.4 %; White Blood Count 7.5 K/mcL (4.3-11.1)
[2020-09-07] MEDS: Albumin 25% 25gram/100mL 25 GM/100 ML IV.SOLN IVPB SCH ×4 (01:39→23:24)
[2020-09-07] MEDS: *HR* OxyCODONE/APAP 7.5/325 TABLET PO PRN ×3 (01:48→23:24)
[2020-09-07 01:51] LABS: Albumin 3.3 g/dL (3.5-5.7); Magnesium 2.6 mg/dL (1.6-2.6)
[2020-09-07 01:52] LABS: Calcium 8.1 mg/dL (8.6-10.3); Potassium 5.4 mEq/L (3.5-5.1)
[2020-09-07] MEDS: *HR* Heparin 5,000 UNIT/ML VIAL SQ SCH ×2 (06:36→16:38)
[2020-09-07 07:02] LABS: Bilirubin,Urine Negative (Negative); Blood,Urine Small (Negative); Clarity,Urine Clear (Clear); Color,Urine Yellow (Yellow); Glucose,Urine (UA) Normal (Normal); Hyaline Casts,Urine Few per lpf (None Seen); Ketones,Urine Negative (Negative); Leukocyte Esterase,Urine Negative (Negative); Mucus,Urine Few per lpf (None-Few); Nitrite,Urine Negative (Negative); PH,Urine 5.5 pH Units (5.0-8.0); Protein,Urine Negative (Neg-Trace); Specific Gravity,Urine 1.019 (1.010-1.025); Squamous Epithelial Cell,Urine Few per hpf (None-Few); Urobilinogen,Urine Normal (Normal); WBC,Urine 0-3 per hpf (0-3)
[2020-09-07 07:06] LABS: Protein/Creatinine Ratio,Urine 0.19 mg/mg (0.00-0.20); Sodium, Urine 15.4 mEq/L
[2020-09-07] MEDS: Insulin LISPRO 300 UNITS/3 ML VIAL SUBQ SCH ×7 (07:42→19:56)
[2020-09-07] MEDS: predniSONE 20 MG TABLET PO SCH (07:44)
[2020-09-07] MEDS: Aspirin 81 MG TAB.CHEW PO SCH (07:49)
[2020-09-07] MEDS: Nicotine 21 MG PATCH.TD24 TD SCH (07:49)
[2020-09-07] MEDS ORDERED: Tolvaptan 15 MG TABLET PO ONE (11:03)
[2020-09-07] MEDS: *HR* Amiodarone 200 MG TABLET PO SCH ×2 (12:05→19:44)
[2020-09-07] MEDS: Metoprolol XL (24 HR) Succ 25 MG TAB.ER.24H PO SCH ×2 (12:05→19:44)
[2020-09-07] MEDS: ALPRAZolam 1 MG TABLET PO PRN (19:44)
[2020-09-07] MEDS: Insulin DETEMIR 100 UNIT/ML X5UNITS SUBQ SCH (19:57)
[2020-09-08] MEDS: Ipratropium/Albuterol Neb 3 ML IH SCH ×3 (03:17→11:43)
[2020-09-08] MEDS: ALPRAZolam 1 MG TABLET PO PRN ×2 (03:56→12:11)
[2020-09-08 05:00] LABS: Basophils % 0.1 %; Hematocrit 36.6 % (35.3-44.9); Hemoglobin 12.5 g/dL (11.5-15.4); Immature Granulocytes % 0.6 % (0-4); Lymphocytes # 1.4 K/mcL (0.6-4.6); Lymphocytes % 15.4 %; Mean Corpuscular HGB Conc 34.2 g/dL (31.6-35.5); Mean Corpuscular Hemoglobin 27.9 pg (28.0-33.3); Mean Corpuscular Volume 81.7 fL (83.0-100.0); Mean Platelet Volume 9.5 fL (9.4-12.4); Monocytes # 0.6 K/mcL (0.0-1.3); Monocytes % 6.3 %; Platelet Count 172 K/mcL (140-400); Red Blood Count 4.48 M/mcL (3.82-4.97); Red Cell Distribution Width 13.6 % (11.5-14.5); Segmented Neutrophils % 77.6 %
[2020-09-08 05:20] LABS: Calcium 8.4 mg/dL (8.6-10.3); Magnesium 2.5 mg/dL (1.6-2.6); Phosphorous 4.6 mg/dL (2.7-4.5); Potassium 5.1 mEq/L (3.5-5.1)
[2020-09-08] MEDS: *HR* Heparin 5,000 UNIT/ML VIAL SQ SCH ×2 (06:33→16:48)
[2020-09-08] MEDS: *HR* Amiodarone 200 MG TABLET PO SCH (08:32)
[2020-09-08] MEDS: predniSONE 20 MG TABLET PO SCH (08:32)
[2020-09-08] MEDS: Aspirin 81 MG TAB.CHEW PO SCH (08:33)
[2020-09-08] MEDS: Metoprolol XL (24 HR) Succ 25 MG TAB.ER.24H PO SCH (08:33)
[2020-09-08] MEDS: Nicotine 21 MG PATCH.TD24 TD SCH (08:34)
[2020-09-08] MEDS: Albumin 25% 25gram/100mL 25 GM/100 ML IV.SOLN IVPB SCH ×3 (08:34→23:53)
[2020-09-08] MEDS: Insulin LISPRO 300 UNITS/3 ML VIAL SUBQ SCH ×7 (08:36→20:38)
[2020-09-08] MEDS ORDERED: Tolvaptan 15 MG TABLET PO ONE (10:18)
[2020-09-08] MEDS: *HR* OxyCODONE/APAP 7.5/325 TABLET PO PRN ×2 (12:10→18:43)
[2020-09-08] MEDS ORDERED: Ipratropium/Albuterol Neb 3 ML IH PRN (18:05)
[2020-09-08] MEDS: Insulin DETEMIR 100 UNIT/ML X5UNITS SUBQ SCH (20:37)
[2020-09-08] MEDS ORDERED: Metoprolol XL (24 HR) Succ 25 MG TAB.ER.24H PO SCH (21:00)
[2020-09-09] MEDS: *HR* OxyCODONE/APAP 7.5/325 TABLET PO PRN ×3 (01:41→21:23)
[2020-09-09] MEDS: *HR* Heparin 5,000 UNIT/ML VIAL SQ SCH ×2 (05:06→16:56)
[2020-09-09 06:35] LABS: Basophils % 0.1 %; Hematocrit 35.5 % (35.3-44.9); Hemoglobin 11.9 g/dL (11.5-15.4); Immature Granulocytes % 0.8 % (0-4); Mean Corpuscular HGB Conc 33.5 g/dL (31.6-35.5); Mean Corpuscular Hemoglobin 26.8 pg (28.0-33.3); Mean Platelet Volume 9.2 fL (9.4-12.4); Monocytes # 0.4 K/mcL (0.0-1.3); Monocytes % 5.4 %; Neutrophils # 6.5 K/mcL (1.6-8.9); Platelet Count 177 K/mcL (140-400); Red Blood Count 4.44 M/mcL (3.82-4.97); Red Cell Distribution Width 13.5 % (11.5-14.5); Segmented Neutrophils % 81.7 %; White Blood Count 7.9 K/mcL (4.3-11.1)
[2020-09-09 06:52] LABS: Calcium 8.3 mg/dL (8.6-10.3); Potassium 5.1 mEq/L (3.5-5.1)
[2020-09-09] MEDS: Aspirin 81 MG TAB.CHEW PO SCH (07:33)
[2020-09-09] MEDS: predniSONE 20 MG TABLET PO SCH (07:33)
[2020-09-09] MEDS: Nicotine 21 MG PATCH.TD24 TD SCH (07:37)
[2020-09-09] MEDS: Albumin 25% 25gram/100mL 25 GM/100 ML IV.SOLN IVPB SCH ×2 (07:37→16:55)
[2020-09-09] MEDS: Insulin LISPRO 300 UNITS/3 ML VIAL SUBQ SCH ×7 (07:44→20:57)
[2020-09-09 09:09] LABS: Serine Protease-3 Antibody 2 AU/mL (0-19)
[2020-09-09 09:11] LABS: ANA IgG by ELISA DETECTED (None Detected)
[2020-09-09] MEDS: Furosemide 40 MG TABLET PO SCH ×2 (11:56→16:55)
[2020-09-09] MEDS: Metoprolol XL (24 HR) Succ 25 MG TAB.ER.24H PO SCH ×2 (11:56→20:55)
[2020-09-09] MEDS: Sacubitril/Valsartan 24/26 MG 1 TABLET PO SCH ×2 (11:59→21:23)
[2020-09-09] MEDS ORDERED: *HR* Amiodarone Premix 360 MG/200 ML BAG IVC ONE (15:04)
[2020-09-09] MEDS ORDERED: *HR* Magnesium Sulfate 2 GM/50 ML PIGGYBACK IVPB ONE (15:04)
[2020-09-09] MEDS: ALPRAZolam 1 MG TABLET PO PRN (20:00)
[2020-09-09] MEDS: Insulin DETEMIR 100 UNIT/ML X5UNITS SUBQ SCH (21:24)
[2020-09-09 22:46] LABS: ANA HEp-2 IgG IFA DETECTED (<1:80); Anti Nuclear Ab Pattern HOMOGENEOUS; Cytoplasmic Pattern Titer >1:2560
[2020-09-10] MEDS: Albumin 25% 25gram/100mL 25 GM/100 ML IV.SOLN IVPB SCH ×3 (00:10→16:13)
[2020-09-10 03:08] LABS: Basophils % 0.1 %; Hematocrit 36.3 % (35.3-44.9); Immature Granulocytes % 0.7 % (0-4); Lymphocytes # 1.9 K/mcL (0.6-4.6); Lymphocytes % 16.4 %; Mean Corpuscular HGB Conc 33.1 g/dL (31.6-35.5); Mean Corpuscular Hemoglobin 27.2 pg (28.0-33.3); Mean Corpuscular Volume 82.3 fL (83.0-100.0); Mean Platelet Volume 9.9 fL (9.4-12.4); Monocytes # 0.8 K/mcL (0.0-1.3); Monocytes % 6.7 %; Neutrophils # 8.7 K/mcL (1.6-8.9); Platelet Count 186 K/mcL (140-400); Red Blood Count 4.41 M/mcL (3.82-4.97); Red Cell Distribution Width 13.5 % (11.5-14.5); Segmented Neutrophils % 76.1 %; White Blood Count 11.4 K/mcL (4.3-11.1)
[2020-09-10] MEDS: *HR* OxyCODONE/APAP 7.5/325 TABLET PO PRN ×2 (03:23→13:29)
[2020-09-10 03:26] LABS: Calcium 8.9 mg/dL (8.6-10.3); Potassium 5.5 mEq/L (3.5-5.1)
[2020-09-10] MEDS: *HR* Heparin 5,000 UNIT/ML VIAL SQ SCH ×2 (05:57→16:12)
[2020-09-10 06:50] LABS: Cytoplasmic Pattern AMA
[2020-09-10] MEDS: Insulin LISPRO 300 UNITS/3 ML VIAL SUBQ SCH ×7 (07:40→20:01)
[2020-09-10 08:42] LABS: Alpha 2 Globulin (PEP) 0.76 g/dL (0.48-1.05); Beta Globulin (PEP) 0.67 g/dL (0.48-1.10)
[2020-09-10 09:15] LABS: IFE Reflexed IFE Done; Immunoglobulin A 236 mg/dL (68-408); Immunoglobulin G 1220 mg/dL (768-1632); Immunoglobulin M 90 mg/dL (35-263)
[2020-09-10] MEDS: predniSONE 20 MG TABLET PO SCH (09:39)
[2020-09-10] MEDS: Aspirin 81 MG TAB.CHEW PO SCH (09:39)
[2020-09-10] MEDS: Nicotine 21 MG PATCH.TD24 TD SCH (09:39)
[2020-09-10] MEDS: ALPRAZolam 1 MG TABLET PO PRN ×2 (09:43→16:11)
[2020-09-10] MEDS: Furosemide 40 MG TABLET PO SCH ×2 (09:44→16:11)
[2020-09-10] MEDS: Metoprolol XL (24 HR) Succ 25 MG TAB.ER.24H PO SCH ×2 (11:02→20:02)
[2020-09-10] MEDS: Sacubitril/Valsartan 24/26 MG 1 TABLET PO SCH (11:13)
[2020-09-10] MEDS: Insulin DETEMIR 100 UNIT/ML X5UNITS SUBQ SCH (20:01)
[2020-09-10] MEDS ORDERED: Metoprolol XL (24 HR) Succ 25 MG TAB.ER.24H PO SCH (21:00)
[2020-09-11] MEDS: Albumin 25% 25gram/100mL 25 GM/100 ML IV.SOLN IVPB SCH ×2 (00:40→08:38)
[2020-09-11 03:07] LABS: Basophils % 0.2 %; Hematocrit 34.7 % (35.3-44.9); Hemoglobin 11.5 g/dL (11.5-15.4); Immature Granulocytes % 1.3 % (0-4); Lymphocytes # 0.8 K/mcL (0.6-4.6); Lymphocytes % 9.1 %; Mean Corpuscular HGB Conc 33.1 g/dL (31.6-35.5); Mean Corpuscular Volume 81.5 fL (83.0-100.0); Monocytes # 0.4 K/mcL (0.0-1.3); Monocytes % 4.8 %; Neutrophils # 7.4 K/mcL (1.6-8.9); Platelet Count 183 K/mcL (140-400); Red Blood Count 4.26 M/mcL (3.82-4.97); Red Cell Distribution Width 13.7 % (11.5-14.5); Segmented Neutrophils % 84.6 %; White Blood Count 8.8 K/mcL (4.3-11.1)
[2020-09-11 03:26] LABS: Calcium 8.5 mg/dL (8.6-10.3); Potassium 5.2 mEq/L (3.5-5.1)
[2020-09-11] MEDS: *HR* Heparin 5,000 UNIT/ML VIAL SQ SCH (05:11)
[2020-09-11] MEDS: Insulin LISPRO 300 UNITS/3 ML VIAL SUBQ SCH ×4 (07:45→11:09)
[2020-09-11] MEDS: Furosemide 40 MG TABLET PO SCH (08:38)
[2020-09-11] MEDS: Aspirin 81 MG TAB.CHEW PO SCH (08:38)
[2020-09-11] MEDS: Nicotine 21 MG PATCH.TD24 TD SCH (08:38)
[2020-09-11] MEDS: Metoprolol XL (24 HR) Succ 25 MG TAB.ER.24H PO SCH (08:40)
[2020-09-11] MEDS ORDERED: lisinopriL 5 MG TABLET PO SCH (09:00)
[2020-09-11] MEDS: *HR* OxyCODONE/APAP 7.5/325 TABLET PO PRN (10:07)
[2020-09-11 11:06] VITALS: BP 105/55
[2020-09-11] MEDS: ALPRAZolam 1 MG TABLET PO PRN (13:40)
[2020-09-12] MEDS ORDERED: Metoprolol XL (24 HR) Succ 25 MG TAB.ER.24H PO SCH (09:00)
[2020-09-19 14:13] LABS: Antiphospholipid IgG High Spec 0 GPL (0-14); Antiphospholipid IgM High Spec 0 MPL (0-14)
== END 2020-09-11 13:45 | disposition home or self-care (01) | DRG 190 ==
LOC: EMEROOARM 05:38 → 2NNU 05:38 → SUATTDRO 10:57 → 2NNU 11:06 → SUATTDRO 09-05 14:48
PROVIDERS: ADMIT Internal Medicine; ATTEND Internal Medicine

== ENCOUNTER 2020-10-25 16:43 | Observation (INO) ==
[2020-10-25 17:24] LABS: Basophils # 0.1 K/mcL (0.0-0.2); Basophils % 0.7 %; Eosinophils # 0.1 K/mcL (0.0-0.6); Eosinophils % 1.9 %; Hematocrit 35.1 % (35.3-44.9); Hemoglobin 11.5 g/dL (11.5-15.4); Immature Granulocytes % 0.7 % (0-4); Lymphocytes # 1.4 K/mcL (0.6-4.6); Lymphocytes % 18.8 %; Mean Corpuscular HGB Conc 32.8 g/dL (31.6-35.5); Mean Corpuscular Hemoglobin 27.8 pg (28.0-33.3); Mean Platelet Volume 8.3 fL (9.4-12.4); Monocytes # 0.7 K/mcL (0.0-1.3); Monocytes % 9.2 %; Platelet Count 191 K/mcL (140-400); Red Blood Count 4.13 M/mcL (3.82-4.97); Red Cell Distribution Width 15.3 % (11.5-14.5); Segmented Neutrophils % 68.7 %; White Blood Count 7.3 K/mcL (4.3-11.1)
[2020-10-25 17:46] LABS: BUN/Creatinine Ratio 47 (6-26); Blood Urea Nitrogen 61 mg/dL (6-20); Calcium 8.9 mg/dL (8.6-10.3); Carbon Dioxide 28 mEq/L (23-29); Chloride 95 mEq/L (98-107); Glucose 136 mg/dL (70-105); Osmolality,Calculated 287 (280-300); Potassium 6.4 mEq/L (3.5-5.1); Sodium 129 mEq/L (136-145); Troponin I < 0.03 ng/mL (< 0.04); eGFR For African Americans 51 (> 60); eGFR For Non-African Americans 42 (> 60)
[2020-10-25] MEDS ORDERED: *HR* OxyCODONE/APAP 7.5/325 TABLET PO ONE (18:16)
[2020-10-25] MEDS ORDERED: Insulin Human Regular 10 UNIT in 0.9 % Sodium Chloride 10 ML IV STA (18:31)
[2020-10-25] MEDS ORDERED: Calcium Gluconate 1gm/50mL 1 GM/50 ML BAG IVPB STA (18:32)
[2020-10-25] MEDS ORDERED: Albuterol 2.5 MG/3 ML NEBULIZER IH ONE (18:34)
[2020-10-25] MEDS ORDERED: cefTRIAXone 1,000 MG in 0.9 % Sodium Chloride Mini Bag 100 ML IVPB ONE (18:40)
[2020-10-25] MEDS ORDERED: *HR* Dextrose 50 % in Water (Vial) 50 ML VIAL IVP ONE (18:45)
[2020-10-25] MEDS ORDERED: cefTRIAXone 1,000 MG in Water for inj. (sterile) 10 ML IVP ONE (18:45)
[2020-10-25] MEDS ORDERED: Ondansetron 4 MG/2 ML VIAL IVP PRN (21:25)
[2020-10-25] MEDS ORDERED: Naloxone 0.4 MG/ML INJ IVP PRN (21:25)
[2020-10-25] MEDS ORDERED: Furosemide 40 MG/4 ML VIAL IVP ONE (21:26)
[2020-10-25] MEDS ORDERED: Dextrose Gel 15 GM/37.5 ML TUBE PO PRN ×2 (21:27)
[2020-10-25] MEDS ORDERED: *HR* Dextrose 50 % in Water (Vial) 50 ML VIAL IVP PRN (21:27)
[2020-10-25] MEDS ORDERED: D5% in Water 1,000 ML IVC PRN (21:27)
[2020-10-25] MEDS: Insulin LISPRO 300 UNITS/3 ML VIAL SUBQ SCH (21:36)
[2020-10-25] MEDS: *HR* Heparin 5,000 UNIT/ML VIAL SQ SCH (21:46)
[2020-10-25 23:14] LABS: Calcium 8.9 mg/dL (8.6-10.3); Potassium 5.7 mEq/L (3.5-5.1)
[2020-10-26 03:10] LABS: Basophils # 0.1 K/mcL (0.0-0.2); Basophils % 0.8 %; Eosinophils # 0.2 K/mcL (0.0-0.6); Eosinophils % 2.7 %; Hematocrit 32.1 % (35.3-44.9); Hemoglobin 10.6 g/dL (11.5-15.4); Immature Granulocytes % 0.6 % (0-4); Lymphocytes # 0.7 K/mcL (0.6-4.6); Lymphocytes % 11.4 %; Mean Corpuscular Hemoglobin 27.3 pg (28.0-33.3); Mean Corpuscular Volume 82.7 fL (83.0-100.0); Mean Platelet Volume 8.5 fL (9.4-12.4); Monocytes # 0.5 K/mcL (0.0-1.3); Monocytes % 8.5 %; Neutrophils # 4.7 K/mcL (1.6-8.9); Platelet Count 162 K/mcL (140-400); Red Blood Count 3.88 M/mcL (3.82-4.97); Red Cell Distribution Width 15.3 % (11.5-14.5); White Blood Count 6.2 K/mcL (4.3-11.1)
[2020-10-26 03:25] LABS: Calcium 8.3 mg/dL (8.6-10.3); Magnesium 1.4 mg/dL (1.6-2.6); Potassium 5.9 mEq/L (3.5-5.1)
[2020-10-26] MEDS: *HR* Heparin 5,000 UNIT/ML VIAL SQ SCH ×3 (05:31→20:57)
[2020-10-26] MEDS: Tiotropium 10 INH DOSE IH SCH (07:44)
[2020-10-26] MEDS ORDERED: Furosemide 40 MG/4 ML VIAL IVP SCH (08:00)
[2020-10-26] MEDS: Aspirin 81 MG TAB.CHEW PO SCH (08:09)
[2020-10-26] MEDS: Insulin LISPRO 300 UNITS/3 ML VIAL SUBQ SCH ×4 (08:09→19:27)
[2020-10-26] MEDS: *HR* OxyCODONE/APAP 7.5/325 TABLET PO PRN ×2 (10:25→22:47)
[2020-10-26] MEDS: ALPRAZolam 1 MG TABLET PO SCH ×3 (10:25→20:57)
[2020-10-26] MEDS: Furosemide 40 MG/4 ML VIAL IVP SCH (17:31)
[2020-10-26] MEDS ORDERED: cefTRIAXone 1,000 MG in 0.9 % Sodium Chloride Mini Bag 100 ML IVPB SCH (18:00)
[2020-10-26] MEDS: carvediloL 6.25 MG TABLET PO SCH (20:57)
[2020-10-27 01:54] LABS: Hematocrit 31.7 % (35.3-44.9); Hemoglobin 10.4 g/dL (11.5-15.4); Mean Corpuscular HGB Conc 32.8 g/dL (31.6-35.5); Mean Corpuscular Hemoglobin 27.4 pg (28.0-33.3); Mean Corpuscular Volume 83.6 fL (83.0-100.0); Mean Platelet Volume 8.6 fL (9.4-12.4); Platelet Count 167 K/mcL (140-400); Red Blood Count 3.79 M/mcL (3.82-4.97); Red Cell Distribution Width 15.3 % (11.5-14.5); White Blood Count 5.1 K/mcL (4.3-11.1)
[2020-10-27 02:18] LABS: Albumin/Globulin Ratio 1.1 (1.1-2.2); Bilirubin,Indirect 0.3 mg/dL (0.0-1.0); Bilirubin,Total 0.3 mg/dL (0.3-1.0); Globulin 2.7 g/dL (2.4-3.5); Total Protein 5.7 g/dL (6.4-8.9)
[2020-10-27 02:19] LABS: Calcium 8.3 mg/dL (8.6-10.3); Potassium 4.4 mEq/L (3.5-5.1)
[2020-10-27] MEDS: *HR* Heparin 5,000 UNIT/ML VIAL SQ SCH (06:05)
[2020-10-27] MEDS: ALPRAZolam 1 MG TABLET PO SCH (07:44)
[2020-10-27] MEDS: Tiotropium 10 INH DOSE IH SCH (07:49)
[2020-10-27] MEDS: Aspirin 81 MG TAB.CHEW PO SCH (08:38)
[2020-10-27] MEDS: carvediloL 6.25 MG TABLET PO SCH (08:38)
[2020-10-27] MEDS: Furosemide 40 MG/4 ML VIAL IVP SCH (08:39)
[2020-10-27] MEDS: Insulin LISPRO 300 UNITS/3 ML VIAL SUBQ SCH (08:40)
[2020-10-27] MEDS: *HR* OxyCODONE/APAP 7.5/325 TABLET PO PRN (08:44)
[2020-10-27] MEDS ORDERED: Tiotropium 10 INH DOSE IH SCH (09:00)
[2020-10-27 10:58] VITALS: BP 144/83
== END 2020-10-27 11:55 | disposition home or self-care (01) ==
LOC: EMEROOARM 16:43 → 2ANU 16:43 → SUATTDRO 20:01 → 2ANU 20:39
PROVIDERS: ADMIT Internal Medicine; ATTEND Internal Medicine

== ENCOUNTER 2022-02-21 06:15 | Inpatient (IN) ==
[2022-02-21 07:17] LABS: Basophils # 0.1 K/mcL (0.0-0.2); Basophils % 0.5 %; Hematocrit 43.7 % (35.3-44.9); Hemoglobin 13.8 g/dL (11.5-15.4); Immature Granulocytes % 0.4 % (0-4); Lymphocytes # 1.1 K/mcL (0.6-4.6); Lymphocytes % 9.8 %; Mean Corpuscular HGB Conc 31.6 g/dL (31.6-35.5); Mean Corpuscular Volume 82.5 fL (83.0-100.0); Mean Platelet Volume 9.1 fL (9.4-12.4); Monocytes # 0.7 K/mcL (0.0-1.3); Monocytes % 6.3 %; Neutrophils # 9.1 K/mcL (1.6-8.9); Platelet Count 160 K/mcL (140-400); Red Cell Distribution Width 14.8 % (11.5-14.5)
[2022-02-21] MEDS ORDERED: levoFLOXacin 750 MG/150 ML 750 MG/150 ML BAG IVPB ONE (07:21)
[2022-02-21] MEDS ORDERED: Ipratropium/Albuterol Neb 3 ML IH ONE (07:21)
[2022-02-21] MEDS ORDERED: methylPREDNISolone 125 MG/2 ML VIAL IVP ONE (07:21)
[2022-02-21 07:27] LABS: BUN/Creatinine Ratio 28 (6-26); Blood Urea Nitrogen 29 mg/dL (6-20); Calcium 8.6 mg/dL (8.6-10.3); Carbon Dioxide 31 mEq/L (23-29); Chloride 96 mEq/L (98-107); Glucose 274 mg/dL (70-105); Osmolality,Calculated 292 (280-300); Potassium 4.5 mEq/L (3.5-5.1); Sodium 133 mEq/L (136-145); Troponin I < 0.03 ng/mL (< 0.04); eGFR For African Americans > 60 (> 60); eGFR For Non-African Americans 54 (> 60)
[2022-02-21 08:28] LABS: Influenza A PCR Negative (Negative); Influenza B PCR Negative (Negative); Resp. Syncytial Virus PCR Negative (Negative)
[2022-02-21] MEDS ORDERED: Perflutren Lipid Microsphere 1.3 ML in 0.9 % Sodium Chloride 8.7 ML IVP PRN (09:15)
[2022-02-21] MEDS ORDERED: Acetaminophen 325 MG TABLET PO PRN (09:17)
[2022-02-21] MEDS ORDERED: *HR* Dextrose 50 % in Water (Syg) 50 ML SYRINGE IVP PRN (09:17)
[2022-02-21] MEDS ORDERED: Naloxone 0.4 MG/ML INJ IVP PRN (09:17)
[2022-02-21] MEDS ORDERED: Dextrose Gel 15 GM/37.5 ML TUBE PO PRN ×2 (09:17)
[2022-02-21] MEDS ORDERED: Ondansetron 4 MG/2 ML VIAL IVP PRN (09:17)
[2022-02-21] MEDS ORDERED: Melatonin 3 MG TABLET PO PRN (09:17)
[2022-02-21] MEDS ORDERED: D5% in Water 1,000 ML IVC PRN (09:17)
[2022-02-21 09:22] LABS: SARS-CoV-2 by PCR (In House) Negative (Negative)
[2022-02-21] MEDS ORDERED: Nitroglycerin 0.4 MG TAB.SUBL SL PRN (09:22)
[2022-02-21] MEDS: Ipratropium/Albuterol Neb 3 ML IH SCH ×3 (10:08→21:04)
[2022-02-21] MEDS ORDERED: ALPRAZolam 1 MG TABLET PO ONE (10:27)
[2022-02-21] MEDS: Insulin DETEMIR 100 UNIT/ML X5UNITS SUBQ SCH ×2 (11:09→20:28)
[2022-02-21] MEDS: Insulin LISPRO 300 UNITS/3 ML VIAL SUBQ SCH ×3 (11:09→20:28)
[2022-02-21] MEDS: *HR* OxyCODONE Immed Rel 5 MG TABLET PO PRN (11:10)
[2022-02-21] MEDS: Furosemide 40 MG/4 ML VIAL IVP SCH ×2 (11:16→20:27)
[2022-02-21 12:45] LABS: Magnesium 1.2 mg/dL (1.6-2.6)
[2022-02-21] MEDS: *HR* Heparin 5,000 UNIT/ML VIAL SQ SCH ×2 (13:44→20:25)
[2022-02-21] MEDS: MethylPREDNISolone 40 MG/ML VIAL IVP SCH (15:02)
[2022-02-21 15:32] LABS: Estimated Average Glucose 237 mg/dl; Hemoglobin A1C 9.9 %
[2022-02-21] MEDS: *HR* HYDROcodone/Acet 5/325 mg TABLET PO PRN (20:27)
[2022-02-21] MEDS: ALPRAZolam 1 MG TABLET PO PRN (20:34)
[2022-02-22] MEDS: MethylPREDNISolone 40 MG/ML VIAL IVP SCH ×3 (00:03→16:23)
[2022-02-22 03:31] LABS: Basophils % 0.1 %; Hematocrit 44.7 % (35.3-44.9); Hemoglobin 14.3 g/dL (11.5-15.4); Immature Granulocytes % 0.5 % (0-4); Lymphocytes # 0.6 K/mcL (0.6-4.6); Lymphocytes % 6.9 %; Mean Corpuscular Volume 81.3 fL (83.0-100.0); Mean Platelet Volume 9.8 fL (9.4-12.4); Monocytes # 0.2 K/mcL (0.0-1.3); Monocytes % 2.3 %; Neutrophils # 7.3 K/mcL (1.6-8.9); Platelet Count 181 K/mcL (140-400); Red Cell Distribution Width 14.6 % (11.5-14.5); Segmented Neutrophils % 90.2 %; White Blood Count 8.1 K/mcL (4.3-11.1)
[2022-02-22 03:50] LABS: BUN/Creatinine Ratio 32 (6-26); Blood Urea Nitrogen 36 mg/dL (6-20); Calcium 8.9 mg/dL (8.6-10.3); Carbon Dioxide 31 mEq/L (23-29); Chloride 97 mEq/L (98-107); Glucose 233 mg/dL (70-105); Osmolality,Calculated 292 (280-300); Potassium 4.2 mEq/L (3.5-5.1); Sodium 133 mEq/L (136-145); eGFR For African Americans > 60 (> 60); eGFR For Non-African Americans 50 (> 60)
[2022-02-22] MEDS: Ipratropium/Albuterol Neb 3 ML IH SCH ×4 (03:58→22:45)
[2022-02-22] MEDS: *HR* Heparin 5,000 UNIT/ML VIAL SQ SCH ×3 (06:26→20:13)
[2022-02-22] MEDS: *HR* OxyCODONE Immed Rel 5 MG TABLET PO PRN ×2 (06:54→17:14)
[2022-02-22] MEDS: levoFLOXacin 750 MG TABLET PO SCH (08:42)
[2022-02-22] MEDS: ALPRAZolam 1 MG TABLET PO PRN ×2 (08:43→16:23)
[2022-02-22] MEDS: Insulin LISPRO 300 UNITS/3 ML VIAL SUBQ SCH ×4 (08:43→19:51)
[2022-02-22] MEDS: Insulin DETEMIR 100 UNIT/ML X5UNITS SUBQ SCH ×2 (08:44→20:14)
[2022-02-22] MEDS: Furosemide 40 MG/4 ML VIAL IVP SCH ×2 (08:44→20:14)
[2022-02-22] MEDS: *HR* HYDROcodone/Acet 5/325 mg TABLET PO PRN (13:43)
[2022-02-23] MEDS: MethylPREDNISolone 40 MG/ML VIAL IVP SCH ×2 (00:10→08:34)
[2022-02-23] MEDS: ALPRAZolam 1 MG TABLET PO PRN ×2 (00:17→05:52)
[2022-02-23 03:45] LABS: Basophils % 0.1 %; Hematocrit 42.3 % (35.3-44.9); Hemoglobin 13.4 g/dL (11.5-15.4); Immature Granulocytes % 0.6 % (0-4); Lymphocytes # 0.6 K/mcL (0.6-4.6); Lymphocytes % 5.1 %; Mean Corpuscular HGB Conc 31.7 g/dL (31.6-35.5); Mean Corpuscular Hemoglobin 25.5 pg (28.0-33.3); Mean Corpuscular Volume 80.6 fL (83.0-100.0); Mean Platelet Volume 9.8 fL (9.4-12.4); Monocytes # 0.3 K/mcL (0.0-1.3); Neutrophils # 11.5 K/mcL (1.6-8.9); Platelet Count 195 K/mcL (140-400); Red Blood Count 5.25 M/mcL (3.82-4.97); Red Cell Distribution Width 14.8 % (11.5-14.5); Segmented Neutrophils % 92.2 %
[2022-02-23 03:46] LABS: White Blood Count 12.5 K/mcL (4.3-11.1)
[2022-02-23] MEDS: *HR* HYDROcodone/Acet 5/325 mg TABLET PO PRN (04:01)
[2022-02-23] MEDS: *HR* Heparin 5,000 UNIT/ML VIAL SQ SCH (04:05)
[2022-02-23 04:08] LABS: Albumin 3.1 g/dL (3.5-5.7); Albumin/Globulin Ratio 0.9 (1.1-2.2); Bilirubin,Total 0.4 mg/dL (0.3-1.0); Calcium 8.8 mg/dL (8.6-10.3); Globulin 3.4 g/dL (2.4-3.5); Potassium 4.4 mEq/L (3.5-5.1); Total Protein 6.5 g/dL (6.4-8.9)
[2022-02-23] MEDS: Ipratropium/Albuterol Neb 3 ML IH SCH ×2 (04:15→10:11)
[2022-02-23 08:10] LABS: Magnesium 1.7 mg/dL (1.6-2.6)
[2022-02-23 08:14] VITALS: BP 162/74; PULSE 72; TEMP 97.8; O2SAT 91
[2022-02-23] MEDS: levoFLOXacin 750 MG TABLET PO SCH (08:37)
[2022-02-23] MEDS: Furosemide 40 MG/4 ML VIAL IVP SCH (08:38)
[2022-02-23] MEDS: Insulin DETEMIR 100 UNIT/ML X5UNITS SUBQ SCH (08:38)
[2022-02-23] MEDS: Insulin LISPRO 300 UNITS/3 ML VIAL SUBQ SCH (08:39)
[2022-02-23] MEDS ORDERED: predniSONE 20 MG TABLET PO SCH (09:00)
== END 2022-02-23 10:58 | disposition home or self-care (01) | DRG 139 ==
LOC: 2ANU 06:15 → EMEROOARM 06:15 → 2ANU 10:00
PROVIDERS: ADMIT Student in an Organized Health Care Education/Training Program; ATTEND Student in an Organized Health Care Education/Training Program